=== PATIENT | male | born 1955 | race Caucasian/White ===

== ENCOUNTER → 2021-10-18 | Outpatient (CLI) | payer MEDICARE | LOC: LABNPT 12:57 | PROVIDERS: ATTEND Internal Medicine | DX: Z53.9 Procedure and treatment not carried out, unspecified reason (principal) ==

== ENCOUNTER → 2021-10-22 | Outpatient (CLI) | payer MEDICARE ==
[~2021-10-22] MED LIST: GADOTERATE 0.5 MMOL/ML (CLARISCAN) 20 ML VIAL IV ONE; GADOTERATE 0.5 MMOL/ML (CLARISCAN) 5 ML VIAL IV ONE
--- NOTE | 2021-10-22 11:38 | Diagnostic Imaging Report ---
PROCEDURE: US left lower extremity venous. TECHNIQUE: Multiple real-time grayscale images were obtained over the left lower extremity in various projections. Additional duplex Doppler and color Doppler images were also obtained. INDICATION: Edema of the left lower extremity. There is no evidence of left lower extremity DVT. Left lower extremity deep venous system shows normal compressibility with normal response to augmentation and Valsalva. No fluid collection or mass is detected. IMPRESSION: No evidence of left lower extremity DVT. Dictated by: Dictated on workstation # [id number]
--- NOTE | 2021-10-22 12:00 | Diagnostic Imaging Report ---
PROCEDURE: MR imaging of the brain with and without contrast. TECHNIQUE: Multiplanar, multisequence MR imaging of the brain was performed with and without contrast. INDICATION: Malignant neoplasm of brain COMPARISON: 08/21/2021 There are postoperative findings with interval resection of right parietal lobe mass. There is parietal bone craniotomy with peripheral enhancement about the operative cavity in the right parietal lobe. Blood products and other debris within the cavity demonstrate increased T1 and T2 signal. The cavity measures approximately 2.6 x 2.8 x 3.2 cm and there is associated mild adjacent meningeal enhancement. In addition to the main cavity, there is an approximately 2.1 x 1.5 cm region of increased T2 signal and decreased T1 signal which is slightly more conspicuous on the current study but was present anterior to the mass previously. Otherwise there is no evidence of additional mass lesion within the brain and no other abnormal contrast enhancement is identified. There is no mass effect or shift of midline structures. Small amount of fluid is seen within left mastoid air cells. IMPRESSION: Enhancement about the right parietal operative cavity. Blood and debris are present within the cavity without evidence of nodular enhancement or other finding to suggest residual tumor. Focal region of T2 signal anterior to the operative bed is nonspecific and may represent area of gliosis. There is no evidence of associated enhancement or mass effect but short-term MRI follow-up is recommended to document ongoing stability. Dictated by: Dictated on workstation # [id number]
== END ==
LOC: RAD 09:15
PROVIDERS: ATTEND Internal Medicine
DX: C71.9 Malignant neoplasm of brain, unspecified (principal); R60.0 Localized edema
CPT/HCPCS: 70553

== ENCOUNTER → 2021-10-28 | Outpatient (RCR) | payer MEDICARE | END | disposition home or self-care (01) | PROVIDERS: ATTEND Nurse Practitioner Family | DX: C71.9 Malignant neoplasm of brain, unspecified (principal); Z98.890 Other specified postprocedural states ==

== ENCOUNTER → 2021-10-28 | Outpatient (RCR) | payer MEDICARE ==
[2021-10-18 13:28] LABS: BASOPHILS % (AUTO) 1 % (0-10); EOSINOPHILS # (AUTO) 0.2 10^3/uL (0.0-0.3); EOSINOPHILS % (AUTO) 3 % (0-10); HEMATOCRIT 39 % (40-54); HEMOGLOBIN 12.4 g/dL (13.3-17.7); LYMPHOCYTES # (AUTO) 1.4 10^3/uL (1.0-4.0); LYMPHOCYTES % (AUTO) 20 % (12-44); MEAN CORPUSCULAR HEMOGLOBIN 31 pg (25-34); MEAN CORPUSCULAR HGB CONC 32 g/dL (32-36); MEAN CORPUSCULAR VOLUME 98 fL (80-99); MEAN PLATELET VOLUME 10.6 fL (9.0-12.2); MONOCYTES # (AUTO) 0.6 10^3/uL (0.0-1.0); MONOCYTES % (AUTO) 9 % (0-12); NEUTROPHILS # (AUTO) 4.7 10^3/uL (1.8-7.8); NEUTROPHILS % (AUTO) 67 % (42-75); PLATELET COUNT 255 10^3/uL (130-400); WHITE BLOOD COUNT 7.1 10^3/uL (4.3-11.0)
[2021-10-18 13:38] LABS: ALBUMIN 3.1 GM/DL (3.2-4.5); CREATININE SERUM 0.91 MG/DL (0.60-1.30); TOTAL PROTEIN 6.1 GM/DL (6.4-8.2)
[2021-10-21 14:49] LABS: BASOPHILS % (AUTO) 0 % (0-10); EOSINOPHILS % (AUTO) 0 % (0-10); HEMATOCRIT 41 % (40-54); HEMOGLOBIN 13.3 g/dL (13.3-17.7); LYMPHOCYTES % (AUTO) 12 % (12-44); MEAN CORPUSCULAR HEMOGLOBIN 32 pg (25-34); MEAN CORPUSCULAR HGB CONC 33 g/dL (32-36); MEAN CORPUSCULAR VOLUME 96 fL (80-99); MEAN PLATELET VOLUME 9.6 fL (9.0-12.2); MONOCYTES # (AUTO) 0.1 10^3/uL (0.0-1.0); MONOCYTES % (AUTO) 2 % (0-12); NEUTROPHILS # (AUTO) 7.2 10^3/uL (1.8-7.8); NEUTROPHILS % (AUTO) 84 % (42-75); PLATELET COUNT 377 10^3/uL (130-400); WHITE BLOOD COUNT 8.5 10^3/uL (4.3-11.0)
[2021-10-21 15:04] LABS: ALBUMIN 3.5 GM/DL (3.2-4.5); BILIRUBIN,TOTAL 0.5 MG/DL (0.1-1.0); CALCIUM 9.6 MG/DL (8.5-10.1); CREATININE SERUM 1.16 MG/DL (0.60-1.30); POTASSIUM 4.3 MMOL/L (3.6-5.0); TOTAL PROTEIN 6.7 GM/DL (6.4-8.2)
== END | disposition home or self-care (01) ==
LOC: ONC 10-04 12:21
PROVIDERS: ATTEND Internal Medicine
DX: C71.9 Malignant neoplasm of brain, unspecified (principal); I69.854 Hemiplegia and hemiparesis following other cerebrovascular disease affecting left non-dominant side; R60.0 Localized edema
CPT/HCPCS: 80053; 85025; G0463; 36415; 77300; 77301; 77334; 77338; 77386; 77470; 99204

== ENCOUNTER 2021-11-26 11:03 | Outpatient (RCR) | payer MEDICARE | END 2021-11-27 | disposition home or self-care (01) | PROVIDERS: ATTEND Nurse Practitioner Family | DX: C71.9 Malignant neoplasm of brain, unspecified (principal); I10 Essential (primary) hypertension; Z98.890 Other specified postprocedural states ==

== ENCOUNTER 2021-11-26 12:37 | Outpatient (RCR) | payer MEDICARE ==
[2021-10-29 12:56] LABS: BASOPHILS # (AUTO) 0.1 10^3/uL (0.0-0.1); BASOPHILS % (AUTO) 1 % (0-10); EOSINOPHILS % (AUTO) 0 % (0-10); HEMATOCRIT 43 % (40-54); LYMPHOCYTES # (AUTO) 2.1 10^3/uL (1.0-4.0); LYMPHOCYTES % (AUTO) 11 % (12-44); MEAN CORPUSCULAR HEMOGLOBIN 32 pg (25-34); MEAN CORPUSCULAR HGB CONC 33 g/dL (32-36); MEAN CORPUSCULAR VOLUME 97 fL (80-99); MEAN PLATELET VOLUME 9.9 fL (9.0-12.2); MONOCYTES # (AUTO) 0.7 10^3/uL (0.0-1.0); MONOCYTES % (AUTO) 4 % (0-12); NEUTROPHILS # (AUTO) 15.2 10^3/uL (1.8-7.8); NEUTROPHILS % (AUTO) 81 % (42-75); PLATELET COUNT 477 10^3/uL (130-400); WHITE BLOOD COUNT 18.9 10^3/uL (4.3-11.0)
[2021-10-29 13:17] LABS: ALBUMIN 3.6 GM/DL (3.2-4.5); BILIRUBIN,TOTAL 0.6 MG/DL (0.1-1.0); CALCIUM 9.1 MG/DL (8.5-10.1); CREATININE SERUM 1.13 MG/DL (0.60-1.30); POTASSIUM 4.2 MMOL/L (3.6-5.0); TOTAL PROTEIN 6.4 GM/DL (6.4-8.2)
[2021-11-02 13:36] LABS: BASOPHILS # (AUTO) 0.1 10^3/uL (0.0-0.1); BASOPHILS % (AUTO) 0 % (0-10); EOSINOPHILS % (AUTO) 0 % (0-10); HEMATOCRIT 43 % (40-54); HEMOGLOBIN 13.8 g/dL (13.3-17.7); LYMPHOCYTES # (AUTO) 1.7 10^3/uL (1.0-4.0); LYMPHOCYTES % (AUTO) 8 % (12-44); MEAN CORPUSCULAR HEMOGLOBIN 31 pg (25-34); MEAN CORPUSCULAR HGB CONC 32 g/dL (32-36); MEAN CORPUSCULAR VOLUME 96 fL (80-99); MEAN PLATELET VOLUME 10.3 fL (9.0-12.2); MONOCYTES # (AUTO) 0.6 10^3/uL (0.0-1.0); MONOCYTES % (AUTO) 3 % (0-12); NEUTROPHILS # (AUTO) 16.9 10^3/uL (1.8-7.8); NEUTROPHILS % (AUTO) 85 % (42-75); PLATELET COUNT 413 10^3/uL (130-400); WHITE BLOOD COUNT 19.9 10^3/uL (4.3-11.0)
[2021-11-02 14:12] LABS: ALBUMIN 3.6 GM/DL (3.2-4.5); BILIRUBIN,TOTAL 0.7 MG/DL (0.1-1.0); CALCIUM 8.9 MG/DL (8.5-10.1); CREATININE SERUM 1.22 MG/DL (0.60-1.30); POTASSIUM 3.9 MMOL/L (3.6-5.0); TOTAL PROTEIN 6.1 GM/DL (6.4-8.2)
[2021-11-08 13:00] LABS: BASOPHILS # (AUTO) 0.1 10^3/uL (0.0-0.1); BASOPHILS % (AUTO) 0 % (0-10); EOSINOPHILS # (AUTO) 0.1 10^3/uL (0.0-0.3); EOSINOPHILS % (AUTO) 1 % (0-10); HEMATOCRIT 43 % (40-54); HEMOGLOBIN 13.8 g/dL (13.3-17.7); LYMPHOCYTES # (AUTO) 2.5 10^3/uL (1.0-4.0); LYMPHOCYTES % (AUTO) 16 % (12-44); MEAN CORPUSCULAR HEMOGLOBIN 32 pg (25-34); MEAN CORPUSCULAR HGB CONC 32 g/dL (32-36); MEAN CORPUSCULAR VOLUME 98 fL (80-99); MEAN PLATELET VOLUME 10.1 fL (9.0-12.2); MONOCYTES # (AUTO) 1.3 10^3/uL (0.0-1.0); MONOCYTES % (AUTO) 8 % (0-12); NEUTROPHILS # (AUTO) 11.9 10^3/uL (1.8-7.8); NEUTROPHILS % (AUTO) 74 % (42-75); PLATELET COUNT 281 10^3/uL (130-400); WHITE BLOOD COUNT 16.1 10^3/uL (4.3-11.0)
[2021-11-08 13:19] LABS: ALBUMIN 3.5 GM/DL (3.2-4.5); BILIRUBIN,TOTAL 1.1 MG/DL (0.1-1.0); CALCIUM 8.7 MG/DL (8.5-10.1); CREATININE SERUM 1.02 MG/DL (0.60-1.30); POTASSIUM 3.9 MMOL/L (3.6-5.0); TOTAL PROTEIN 5.9 GM/DL (6.4-8.2)
[2021-11-16 13:04] LABS: BASOPHILS % (AUTO) 0 % (0-10); EOSINOPHILS % (AUTO) 0 % (0-10); HEMATOCRIT 43 % (40-54); LYMPHOCYTES # (AUTO) 0.7 10^3/uL (1.0-4.0); LYMPHOCYTES % (AUTO) 5 % (12-44); MEAN CORPUSCULAR HEMOGLOBIN 32 pg (25-34); MEAN CORPUSCULAR HGB CONC 33 g/dL (32-36); MEAN CORPUSCULAR VOLUME 96 fL (80-99); MEAN PLATELET VOLUME 9.5 fL (9.0-12.2); MONOCYTES # (AUTO) 0.3 10^3/uL (0.0-1.0); MONOCYTES % (AUTO) 2 % (0-12); NEUTROPHILS # (AUTO) 12.8 10^3/uL (1.8-7.8); NEUTROPHILS % (AUTO) 89 % (42-75); PLATELET COUNT 189 10^3/uL (130-400); WHITE BLOOD COUNT 14.4 10^3/uL (4.3-11.0)
[2021-11-16 13:28] LABS: ALBUMIN 3.3 GM/DL (3.2-4.5); BILIRUBIN,TOTAL 1.1 MG/DL (0.1-1.0); CALCIUM 8.7 MG/DL (8.5-10.1); CREATININE SERUM 1.09 MG/DL (0.60-1.30); POTASSIUM 4.1 MMOL/L (3.6-5.0); TOTAL PROTEIN 5.6 GM/DL (6.4-8.2)
[2021-11-22 10:16] LABS: BASOPHILS % (AUTO) 0 % (0-10); EOSINOPHILS % (AUTO) 0 % (0-10); HEMATOCRIT 43 % (40-54); LYMPHOCYTES % (AUTO) 5 % (12-44); MEAN CORPUSCULAR VOLUME 98 fL (80-99); NEUTROPHILS % (AUTO) 88 % (42-75)
[2021-11-22 10:17] LABS: HEMOGLOBIN 14.1 g/dL (13.3-17.7); LYMPHOCYTES # (AUTO) 0.8 10^3/uL (1.0-4.0); MEAN CORPUSCULAR HEMOGLOBIN 32 pg (25-34); MEAN CORPUSCULAR HGB CONC 33 g/dL (32-36); MEAN PLATELET VOLUME 9.7 fL (9.0-12.2); MONOCYTES # (AUTO) 0.9 10^3/uL (0.0-1.0); MONOCYTES % (AUTO) 6 % (0-12); PLATELET COUNT 73 10^3/uL (130-400); WHITE BLOOD COUNT 14.9 10^3/uL (4.3-11.0)
[2021-11-22 10:33] LABS: ALBUMIN 3.3 GM/DL (3.2-4.5); CALCIUM 8.7 MG/DL (8.5-10.1); CREATININE SERUM 1.58 MG/DL (0.60-1.30); POTASSIUM 4.2 MMOL/L (3.6-5.0); TOTAL PROTEIN 5.6 GM/DL (6.4-8.2)
[2021-11-22 11:53] LABS: FREE T4 (FREE THYROXINE) 0.86 NG/DL (0.70-1.48)
== END 2021-11-27 | disposition home or self-care (01) ==
LOC: ONC 12:37
PROVIDERS: ATTEND Internal Medicine
DX: Z51.0 Encounter for antineoplastic radiation therapy (principal); C71.9 Malignant neoplasm of brain, unspecified; I69.854 Hemiplegia and hemiparesis following other cerebrovascular disease affecting left non-dominant side; R60.0 Localized edema
CPT/HCPCS: 36415; 77336; 77385; 77386; 80053; 84439; 84443; 84480; 85025; 99213

== ENCOUNTER 2021-11-30 10:54 | Outpatient (RCR) | payer MEDICARE, OTHER ==
[2021-12-10] MEDS ORDERED: SULF-221 PO (01:27)
[2021-12-10] MEDS ORDERED: CLN.1T PO ×2 (01:27→09:51)
[2021-12-10] MEDS ORDERED: CYAN-41 PO (09:51)
[2021-12-10] MEDS ORDERED: OMEG100032 PO (09:51)
[2021-12-10] MEDS ORDERED: MULT-1030 PO (09:51)
[2021-12-10] MEDS ORDERED: FURO20TA4 PO (09:51)
[2021-12-10] MEDS ORDERED: SULF1TAB38 PO (09:51)
[2021-12-10] MEDS ORDERED: OLAN2.5T27 PO (09:51)
[2021-12-10] MEDS ORDERED: AMLO-251 PO (09:51)
[2021-12-10] MEDS ORDERED: CARV6.252 PO (09:51)
[2021-12-10] MEDS ORDERED: ONDA8TAB13 PO (09:51)
[2021-12-10] MEDS ORDERED: DEXA4TAB PO (09:51)
[2021-12-10] MEDS ORDERED: TMSL.4C PO (09:51)
[2021-12-10] MEDS ORDERED: LEVE10006 PO (09:51)
[2021-12-10] MEDS ORDERED: VALS80TA31 PO (09:51)
[2021-12-10] MEDS ORDERED: POTA10CA43 PO (09:51)
[2021-12-10] MEDS ORDERED: BENZ200C51 PO (09:51)
[2021-12-10] MEDS ORDERED: CITA40TA13 PO (09:57)
[2021-12-24] MEDS ORDERED: TMSL.4C PO (12:06)
[2021-12-24] MEDS ORDERED: IPRA3AMP31 INH (12:06)
[2021-12-24] MEDS ORDERED: ONDA8TAB13 PO (12:06)
[2021-12-24] MEDS ORDERED: ACET325T49 PO (12:06)
[2021-12-24] MEDS ORDERED: VALS80TA31 PO (12:06)
[2021-12-24] MEDS ORDERED: OXC5T PO (12:06)
[2021-12-24] MEDS ORDERED: FLUC100T10 PO (12:06)
[2021-12-24] MEDS ORDERED: CYAN-41 PO (12:06)
[2021-12-24] MEDS ORDERED: GUAI600T43 PO (12:06)
[2021-12-24] MEDS ORDERED: NYST1000 PO (12:06)
[2021-12-24] MEDS ORDERED: CARV6.252 PO (12:06)
[2021-12-24] MEDS ORDERED: LEVE10006 PO (12:06)
[2021-12-24] MEDS ORDERED: LORA2ORA PO (12:06)
[2021-12-24] MEDS ORDERED: POLY17PO54 PO (12:06)
[2021-12-24] MEDS ORDERED: BENZ200C51 PO (12:06)
[2021-12-24] MEDS ORDERED: LEVO750T39 PO (12:06)
[2021-12-24] MEDS ORDERED: CITA40TA13 PO (12:06)
[2021-12-24] MEDS ORDERED: OLAN2.5T27 PO (12:06)
[2021-12-24] MEDS ORDERED: MULT-1030 PO (12:06)
== END 2021-12-28 | disposition home or self-care (01) ==
PROVIDERS: ATTEND Nurse Practitioner Family
DX: C71.9 Malignant neoplasm of brain, unspecified (principal); I10 Essential (primary) hypertension; Z98.890 Other specified postprocedural states

== ENCOUNTER → 2021-12-02 | Outpatient (CLI) | payer MEDICARE ==
--- NOTE | 2021-12-02 13:29 | Diagnostic Imaging Report ---
INDICATION: DYSPNEA COMPARISON: 08/21/2021 FINDINGS: Frontal and lateral views of the chest demonstrate normal heart size and pulmonary vascularity. The lungs are clear. There are no signs of infiltrate, pleural effusions or pneumothoraces. The visualized osseous structures show no acute abnormalities. IMPRESSION: 1. No acute process. No signs of infiltrates, effusions or pneumothoraces. Dictated by: Dictated on workstation # [id number]
== END ==
LOC: RAD 13:07
PROVIDERS: ATTEND Internal Medicine
DX: R06.00 Dyspnea, unspecified (principal)
CPT/HCPCS: 71046

== ENCOUNTER 2021-12-09 09:43 | Outpatient (RCR) | payer MEDICARE, OTHER ==
[2021-11-29 12:10] LABS: HEMATOCRIT 41 % (40-54)
[2021-11-29 12:12] LABS: BASOPHILS % (AUTO) 0 % (0-10); EOSINOPHILS % (AUTO) 0 % (0-10); HEMOGLOBIN 13.6 g/dL (13.3-17.7); LYMPHOCYTES # (AUTO) 0.6 10^3/uL (1.0-4.0); LYMPHOCYTES % (AUTO) 6 % (12-44); MEAN CORPUSCULAR HEMOGLOBIN 32 pg (25-34); MEAN CORPUSCULAR HGB CONC 33 g/dL (32-36); MEAN CORPUSCULAR VOLUME 98 fL (80-99); MEAN PLATELET VOLUME 10.2 fL (9.0-12.2); MONOCYTES # (AUTO) 0.3 10^3/uL (0.0-1.0); MONOCYTES % (AUTO) 3 % (0-12); NEUTROPHILS # (AUTO) 9.1 10^3/uL (1.8-7.8); NEUTROPHILS % (AUTO) 90 % (42-75); WHITE BLOOD COUNT 10.1 10^3/uL (4.3-11.0)
[2021-11-29 12:17] LABS: PLATELET COUNT 28 10^3/uL (130-400)
[2021-11-29 12:26] LABS: ALBUMIN 3.3 GM/DL (3.2-4.5); CALCIUM 8.4 MG/DL (8.5-10.1); CREATININE SERUM 1.42 MG/DL (0.60-1.30); POTASSIUM 4.2 MMOL/L (3.6-5.0); TOTAL PROTEIN 5.6 GM/DL (6.4-8.2)
[2021-12-03 12:58] LABS: BASOPHILS % (AUTO) 0 % (0-10)
[2021-12-03 13:00] LABS: EOSINOPHILS % (AUTO) 0 % (0-10); HEMATOCRIT 40 % (40-54); HEMOGLOBIN 13.3 g/dL (13.3-17.7); LYMPHOCYTES # (AUTO) 0.4 10^3/uL (1.0-4.0); LYMPHOCYTES % (AUTO) 8 % (12-44); MEAN CORPUSCULAR HEMOGLOBIN 33 pg (25-34); MEAN CORPUSCULAR HGB CONC 34 g/dL (32-36); MEAN CORPUSCULAR VOLUME 98 fL (80-99); MEAN PLATELET VOLUME 11.3 fL (9.0-12.2); MONOCYTES # (AUTO) 0.2 10^3/uL (0.0-1.0); MONOCYTES % (AUTO) 4 % (0-12); NEUTROPHILS # (AUTO) 4.1 10^3/uL (1.8-7.8); NEUTROPHILS % (AUTO) 88 % (42-75); WHITE BLOOD COUNT 4.7 10^3/uL (4.3-11.0)
[2021-12-03 13:12] LABS: PLATELET COUNT 14 10^3/uL (130-400)
[2021-12-03 13:19] LABS: ALBUMIN 3.2 GM/DL (3.2-4.5); BILIRUBIN,TOTAL 0.9 MG/DL (0.1-1.0); CALCIUM 8.5 MG/DL (8.5-10.1); CREATININE SERUM 1.39 MG/DL (0.60-1.30); POTASSIUM 4.2 MMOL/L (3.6-5.0); TOTAL PROTEIN 5.6 GM/DL (6.4-8.2)
[2021-12-06 13:04] LABS: BASOPHILS % (AUTO) 0 % (0-10); EOSINOPHILS % (AUTO) 0 % (0-10); MONOCYTES # (AUTO) 0.1 10^3/uL (0.0-1.0); MONOCYTES % (AUTO) 4 % (0-12)
[2021-12-06 13:06] LABS: HEMATOCRIT 38 % (40-54); HEMOGLOBIN 12.9 g/dL (13.3-17.7); LYMPHOCYTES # (AUTO) 0.5 10^3/uL (1.0-4.0); LYMPHOCYTES % (AUTO) 16 % (12-44); MEAN CORPUSCULAR HEMOGLOBIN 33 pg (25-34); MEAN CORPUSCULAR HGB CONC 34 g/dL (32-36); MEAN CORPUSCULAR VOLUME 98 fL (80-99); NEUTROPHILS # (AUTO) 2.5 10^3/uL (1.8-7.8); NEUTROPHILS % (AUTO) 80 % (42-75); WHITE BLOOD COUNT 3.2 10^3/uL (4.3-11.0)
[2021-12-06 13:08] LABS: PLATELET COUNT 8 10^3/uL (130-400)
[~2021-12-09 09:43] MED LIST changes: -GADOTERATE 0.5 MMOL/ML (CLARISCAN) 20 ML VIAL IV ONE; -GADOTERATE 0.5 MMOL/ML (CLARISCAN) 5 ML VIAL IV ONE; +NS IV 500 ML 500 ML ONE
[2021-12-09 11:02] LABS: MEAN CORPUSCULAR VOLUME 96 fL (80-99)
[2021-12-09 11:04] LABS: BASOPHILS % (AUTO) 0 % (0-10); EOSINOPHILS % (AUTO) 2 % (0-10); HEMATOCRIT 36 % (40-54); HEMOGLOBIN 12.1 g/dL (13.3-17.7); LYMPHOCYTES # (AUTO) 0.4 10^3/uL (1.0-4.0); LYMPHOCYTES % (AUTO) 31 % (12-44); MEAN CORPUSCULAR HEMOGLOBIN 33 pg (25-34); MEAN CORPUSCULAR HGB CONC 34 g/dL (32-36); MONOCYTES # (AUTO) 0.1 10^3/uL (0.0-1.0); MONOCYTES % (AUTO) 4 % (0-12); NEUTROPHILS # (AUTO) 0.9 10^3/uL (1.8-7.8); NEUTROPHILS % (AUTO) 64 % (42-75)
[2021-12-09 11:11] LABS: WHITE BLOOD COUNT 1.4 10^3/uL (4.3-11.0)
[2021-12-09 11:12] LABS: PLATELET COUNT 6 10^3/uL (130-400)
[2021-12-09 11:20] LABS: BILIRUBIN,TOTAL 1.4 MG/DL (0.1-1.0); CALCIUM 8.4 MG/DL (8.5-10.1); CREATININE SERUM 1.6 MG/DL (0.60-1.30); POTASSIUM 3.5 MMOL/L (3.6-5.0); TOTAL PROTEIN 5.2 GM/DL (6.4-8.2)
[2021-12-10] MEDS ORDERED: SULF-221 PO (01:27)
[2021-12-10] MEDS ORDERED: CLN.1T PO ×2 (01:27→09:51)
[2021-12-10] MEDS ORDERED: LEVE10006 PO (09:51)
[2021-12-10] MEDS ORDERED: DEXA4TAB PO (09:51)
[2021-12-10] MEDS ORDERED: ONDA8TAB13 PO (09:51)
[2021-12-10] MEDS ORDERED: FURO20TA4 PO (09:51)
[2021-12-10] MEDS ORDERED: VALS80TA31 PO (09:51)
[2021-12-10] MEDS ORDERED: OMEG100032 PO (09:51)
[2021-12-10] MEDS ORDERED: TMSL.4C PO (09:51)
[2021-12-10] MEDS ORDERED: CYAN-41 PO (09:51)
[2021-12-10] MEDS ORDERED: OLAN2.5T27 PO (09:51)
[2021-12-10] MEDS ORDERED: POTA10CA43 PO (09:51)
[2021-12-10] MEDS ORDERED: BENZ200C51 PO (09:51)
[2021-12-10] MEDS ORDERED: MULT-1030 PO (09:51)
[2021-12-10] MEDS ORDERED: CARV6.252 PO (09:51)
[2021-12-10] MEDS ORDERED: AMLO-251 PO (09:51)
[2021-12-10] MEDS ORDERED: SULF1TAB38 PO (09:51)
[2021-12-10] MEDS ORDERED: CITA40TA13 PO (09:57)
[2021-12-24] MEDS ORDERED: FLUC100T10 PO (12:06)
[2021-12-24] MEDS ORDERED: CYAN-41 PO (12:06)
[2021-12-24] MEDS ORDERED: LEVE10006 PO (12:06)
[2021-12-24] MEDS ORDERED: LEVO750T39 PO (12:06)
[2021-12-24] MEDS ORDERED: GUAI600T43 PO (12:06)
[2021-12-24] MEDS ORDERED: TMSL.4C PO (12:06)
[2021-12-24] MEDS ORDERED: OXC5T PO (12:06)
[2021-12-24] MEDS ORDERED: CITA40TA13 PO (12:06)
[2021-12-24] MEDS ORDERED: IPRA3AMP31 INH (12:06)
[2021-12-24] MEDS ORDERED: CARV6.252 PO (12:06)
[2021-12-24] MEDS ORDERED: BENZ200C51 PO (12:06)
[2021-12-24] MEDS ORDERED: ONDA8TAB13 PO (12:06)
[2021-12-24] MEDS ORDERED: NYST1000 PO (12:06)
[2021-12-24] MEDS ORDERED: POLY17PO54 PO (12:06)
[2021-12-24] MEDS ORDERED: LORA2ORA PO (12:06)
[2021-12-24] MEDS ORDERED: OLAN2.5T27 PO (12:06)
[2021-12-24] MEDS ORDERED: MULT-1030 PO (12:06)
[2021-12-24] MEDS ORDERED: VALS80TA31 PO (12:06)
[2021-12-24] MEDS ORDERED: ACET325T49 PO (12:06)
== END 2021-12-28 | disposition home or self-care (01) ==
LOC: ONC 09:43
PROVIDERS: ATTEND Internal Medicine
DX: Z51.0 Encounter for antineoplastic radiation therapy (principal); C71.9 Malignant neoplasm of brain, unspecified; I69.854 Hemiplegia and hemiparesis following other cerebrovascular disease affecting left non-dominant side; D69.6 Thrombocytopenia, unspecified; R60.0 Localized edema
CPT/HCPCS: 36415; 36430; 77336; 77386; 80053; 85025; 86900; 86901; 99213

== ENCOUNTER 2021-12-09 11:31 | Inpatient (IN) | payer MEDICARE, OTHER ==
[~2021-12-09] VITALS: Ht 177.8 cm; Wt 127.0 kg
[2021-12-09] MEDS ORDERED: NS IV 500 ML 500 ML IV SCH (11:45)
[2021-12-09 11:57] LABS: ABSOLUTE RETIC # 36 10e9/uL (24-90); BASOPHILS % (AUTO) 1 % (0-10); EOSINOPHILS % (AUTO) 2 % (0-10); HEMATOCRIT 35 % (40-54); LYMPHOCYTES # (AUTO) 0.4 10^3/uL (1.0-4.0); LYMPHOCYTES % (AUTO) 31 % (12-44); MEAN CORPUSCULAR HEMOGLOBIN 33 pg (25-34); MEAN CORPUSCULAR HGB CONC 34 g/dL (32-36); MEAN CORPUSCULAR VOLUME 96 fL (80-99); MONOCYTES # (AUTO) 0.1 10^3/uL (0.0-1.0); MONOCYTES % (AUTO) 4 % (0-12); NEUTROPHILS # (AUTO) 0.8 10^3/uL (1.8-7.8); NEUTROPHILS % (AUTO) 63 % (42-75); RETICULOCYTE % 0.98 % (0.50-2.40)
--- NOTE | 2021-12-09 12:00 | ED General ---
General Stated Complaint: LOW PLATELET COUNT Source of Information: Patient, Caregiver, Other (hem/onc physician) Exam Limitations: No Limitations History of Present Illness Date Seen by Provider: December 09, 2021 Time Seen by Provider: 11:35 Initial Comments 66-year-old male with past medical history of glioblastoma and hypertension coming in due to pancytopenia. I discussed the case with Dr. Song, the patient's oncologist. He had surgery to remove as much of the tumor as possible. He has had left-sided weakness since then he was having extensive outpatient physical therapy and Occupational Therapy. He continues to go downhill and Dr. Song was concerned that he is having failure to thrive in the outpatient setting despite intensive resources. He has been getting radiation on his brain as well as chemotherapy. There is concern for chemotherapy toxicity as his platelet count continues to plummet. It was less than 10 on Monday and he received a transfusion of platelets. Repeat today was 6 so he was referred to the emergency department. He denies any episodes of bleeding anywhere. He does have some bruising, but denies any worsening headache, vision changes, blood in his urine or stool, or any vomit. He has not had any chemotherapy for roughly 2 weeks. Allergies and Home Medications Allergies Coded Allergies: No Known Drug Allergies (Unverified , 10/22/21) Patient Home Medication List Home Medication List Reviewed: Yes Review of Systems Review of Systems Constitutional: No chills, No fever EENTM: No blurred vision Respiratory: no symptoms reported Cardiovascular: no symptoms reported Gastrointestinal: no symptoms reported Genitourinary: no symptoms reported Musculoskeletal: no symptoms reported Skin: no symptoms reported Psychiatric/Neurological: Other (Left-sided weakness since the surgery) Hematologic/Lymphatic: Easy Bruising Immunological/Allergic: no symptoms reported All Other Systems Reviewed Negative Unless Noted: Yes Past Fevmyen-Ecncha-Jekcdu Hx Patient Social History Tobacco Use?: No Substance use?: No Alcohol Use?: No Past Medical History Surgeries: Yes (Knee replacements bilaterally and left shoulder replacement, brain surgery) Physical Exam Vital Signs Capillary Refill : Height, Weight, BMI Height: '" Weight: lbs. oz. kg; BMI Method: General Appearance: No Apparent Distress, WD/WN Eyes: Bilateral Eye Normal Inspection, Bilateral Eye PERRL, Bilateral Eye EOMI HEENT: PERRL/EOMI, Normal ENT Inspection, Pharynx Normal Neck: Full Range of Motion, Normal Inspection, Non Tender, Supple Respiratory: Chest Non Tender, Lungs Clear, Normal Breath Sounds, No Accessory Muscle Use, No Respiratory Distress Cardiovascular: Regular Rate, Rhythm, No Edema, Normal Peripheral Pulses Gastrointestinal: Normal Bowel Sounds, Non Tender, Soft Back: Normal Inspection, No CVA Tenderness, No Vertebral Tenderness Extremity: Normal Capillary Refill, Normal Inspection, Non Tender, No Calf Tenderness, No Pedal Edema, Other (Left arm and leg weakness) Neurologic/Psychiatric: Alert, Oriented x3, Normal Mood/Affect Skin: Normal Color, Warm/Dry Lymphatic: No Adenopathy Progress/Results/Core Measures Suspected Sepsis SIRS Temperature: Pulse: Respiratory Rate: Laboratory Tests 12/09/21 10:54: Blood Pressure / Mean: Laboratory Tests 12/09/21 10:54: Results/Orders Lab Results Laboratory Tests Test 12/09/21 10:54 Range/Units My Orders Orders - MT COONEY MD Protime With Inr (12/09/21 11:44) Partial Thromboplastin Time (12/09/21 11:44) Type And Screen (12/09/21 11:44) LDH (12/09/21 11:44) Fibrinogen (12/09/21 11:44) Smear For Path Review (12/09/21 11:44) Haptoglobin Screen (12/09/21 11:44) Vital Signs: Special (Order) (12/09/21 11:44) Consent-Obtain Consent For (12/09/21 11:44) Monitor S/S Transfusion Reacti (12/09/21 11:44) Ns Iv 500 Ml (Sodium Chloride 0.9%) (12/09/21 11:45) Platelet Pheresis Lr (12/09/21 11:44) Vital Signs/I&O Capillary Refill : Progress Note : Progress Note 66-year-old male with above history coming in due to low platelets and low white blood cell count concerning for pancytopenia and chemotherapy toxicity per his oncologist. ABCs were intact and vitals were stable on presentation. Physical exam with some mild bruising but no significant signs of bleeding. Basic labs reviewed from earlier today and I added on fibrinogen, coag studies, peripheral smear, haptoglobin, LDH per the oncologist recommendations. We will order the patient platelets. He recommends admission due to the refractory pancytopenia and failure to thrive as an outpatient with extensive resources used as an outpatient. I contacted Dr. Chaparro who will admit the patient under observation status for now. Goal platelets >10k unless evidence of bleeding then it would be higher. Departure Impression Primary Impression: Pancytopenia Additional Impressions: Glioblastoma Left-sided weakness Disposition: ADMITTED INPATIENT Condition: Stable Admissions Decision to Admit Reason: Admit from ER (General) Decision to Admit/Date: December 09, 2021 Time/Decision to Admit Time: 11:55 Departure-Patient Inst. Referrals: NO,LOCAL PHYSICIAN (PCP/Family) Primary Care Physician MT COONEY MD December 09, 2021 12:00
[2021-12-09 12:04] LABS: PLATELET COUNT 6 10^3/uL (130-400); WHITE BLOOD COUNT 1.3 10^3/uL (4.3-11.0)
[2021-12-09 12:24] LABS: INR 0.9 (0.8-1.4); PROTHROMBIN TIME PATIENT 12.8 SEC (12.2-14.7)
[2021-12-09 12:26] LABS: ANISOCYTOSIS SLIGHT; BAND NEUTROPHILS 3 %; EOSINOPHILS % (MANUAL) 2 %; LYMPHOCYTES % (MANUAL) 31 %; MONOCYTES % (MANUAL) 2 %; NEUTROPHILS % (MANUAL) 62 %
[2021-12-09 12:27] LABS: TOXIC GRANULATION/VACUOLAZATIO 1+
[2021-12-09] MEDS ORDERED: diphenhydrAMINE 25 MG TAB (BENADRYL) PO PRN (13:00)
[2021-12-09] MEDS ORDERED: polyethylene glycoL POWDER 17 GM (MIRALAX) PACK PO PRN (13:00)
[2021-12-09] MEDS ORDERED: ONDANSETRON 4 MG/2 ML (SDV) Z0FRAN IV PRN (13:00)
[2021-12-09] MEDS ORDERED: ONDANSETRON 4 MG (ZOFRAN) ORAL DISSOLVE TAB PO PRN (13:00)
[2021-12-09] MEDS ORDERED: ANTACID SUSP 30 ML UDC (MYLANTA) PO PRN (13:00)
[2021-12-09 13:57] VITALS: BP 103/69
--- NOTE | 2021-12-09 14:25 | Occ Therapy Progress Note ---
Therapy Progress Note OT orders received and chart reviewed. OT visited with pt, he requests to hold therapy until tomorrow due to fatigue and weakness at this time. OT will initiate evaluation/tx tomorrow. 1, visit 1420 JITENDRA COLINDRES OT December 09, 2021 14:25
--- NOTE | 2021-12-09 14:33 | Physical Therapy Progress Note ---
Therapy Progress Note Patient has requested to begin in a.MATT You PT December 09, 2021 14:33
[2021-12-09 14:50] VITALS: BP 103/69
[2021-12-09 15:10] VITALS: BP 117/67
[2021-12-09 15:40] VITALS: BP 117/67
[2021-12-09 17:10] VITALS: BP 128/70
--- NOTE | 2021-12-09 18:31 | History & Physical-Hospitalist ---
History of Present Illness HPI/Chief Complaint Valentin Talbert is a 66 year old male with PMH glioblastoma s/p surgery, radiation, and chemotherapy, who presented with pancytopenia. He has not been feeling well for the past week. He has been having weakness which has been more pronounced over that time. His chemotherapy was stopped a couple weeks ago due to his low platelet count. He denies any bleeding. He denies rash. He denies fevers and chills. He denies shortness of breath or cough. He denies chest pain. He denies abdominal pain. He denies diarrhea. He recently completed an antibiotic. Source: patient, family Exam Limitations: no limitations Date Seen 12/09/21 Time Seen by a Provider: 18:15 Attending Physician Gabriela Kramer MD PCP No,Local Physician Referring Physician Date of Admission December 09, 2021 at 12:02 Home Medications & Allergies Home Medications Reviewed patient Home Medication Reconciliation performed by pharmacy medication reconciliations endoscope technician and/or nursing. Patients Allergies have been reviewed. Allergies Allergies Coded Allergies No Known Drug Allergies (Unverified12/09/21) Past Qnqxerr-Ucoagz-Wctkog Hx Patient Social History Tobacco Use?: No Smoking Status: Never a Smoker Use of E-Cig and/or Vaping dev: No Substance use?: No Alcohol Use?: No Pt feels they are or have been: No Immunizations Up To Date Tetanus Booster (TDap): Unknown Current Status Advance Directives: No Communicates: Verbally Primary Language: Kyrgyz Preferred Spoken Language: Kyrgyz Is interpretation needed?: No Family Medical History No Pertinent Family Hx Review of Systems Constitutional: weakness EENTM: no symptoms reported Respiratory: no symptoms reported Cardiovascular: no symptoms reported Gastrointestinal: no symptoms reported Genitourinary: no symptoms reported Musculoskeletal: no symptoms reported Skin: no symptoms reported Psychiatric/Neurological: No Symptoms Reported Physical Exam Physical Exam Vital Signs Vital Signs - First Documented 12/09/21 11:36 Temp 35.8 Pulse 68 Resp 16 B/P (MAP) 92/61 (71) Pulse Ox 96 O2 Delivery Room Air Capillary Refill : Less Than 3 Seconds Height, Weight, BMI Height: '" Weight: lbs. oz. kg; 38.75 BMI Method: General Appearance: No Apparent Distress, Obese Respiratory: Lungs Clear, No Respiratory Distress Cardiovascular: Regular Rate, Rhythm, No Murmur Gastrointestinal: Normal Bowel Sounds, Non Tender, Soft Extremity: No Inflammation; Swelling (4+) Neurologic/Psychiatric: Alert, Normal Mood/Affect, Motor Weakness (left sided) Skin: Normal Color, Warm/Dry Results Results/Procedures Labs Laboratory Tests 12/09/21 10:54 Patient resulted labs reviewed. Imaging: Reviewed Imaging Report Assessment/Plan Admission Diagnosis Pancytopenia Admission Status: Inpatient Order (span 2 midnights) Reason for Inpatient Admission: Platelet transfusion, monitoring Assessment and Plan Pancytopenia Glioblastoma Likely due to chemotherapy Dr. Song, oncology, consulted Platelet count 6 s/p 1 unit platelets WBC 1.4, ANC ~0.8 Consider gCSF Possible bone marrow biopsy Continue dexamethasone HTN Insomnia Leg swelling Obesity Continue home meds Diagnosis/Problems Diagnosis/Problems (1) Pancytopenia Status: Acute (2) Glioblastoma Status: Acute GABRIELA KRAMER MD December 09, 2021 18:31
[2021-12-09 20:00] VITALS: BP 118/76
[2021-12-09] MEDS: OLANZapine 2.5 MG (ZyPREXA) TAB PO SCH (20:53)
[2021-12-09] MEDS: BENZONATATE 100 MG (TESSALON) CAPSULE PO PRN (21:49)
[2021-12-10 00:10] VITALS: BP 116/69
[2021-12-10] MEDS ORDERED: CLN.1T PO ×2 (01:27→09:51)
[2021-12-10] MEDS ORDERED: SULF-221 PO (01:27)
[2021-12-10 05:28] LABS: BASOPHILS % (AUTO) 0 % (0-10); EOSINOPHILS % (AUTO) 1 % (0-10); LYMPHOCYTES # (AUTO) 0.5 10^3/uL (1.0-4.0); MONOCYTES # (AUTO) 0.1 10^3/uL (0.0-1.0)
[2021-12-10 05:30] LABS: HEMATOCRIT 30 % (40-54); HEMOGLOBIN 10.4 g/dL (13.3-17.7); LYMPHOCYTES % (AUTO) 41 % (12-44); MEAN CORPUSCULAR HEMOGLOBIN 33 pg (25-34); MEAN CORPUSCULAR HGB CONC 34 g/dL (32-36); MEAN CORPUSCULAR VOLUME 97 fL (80-99); MONOCYTES % (AUTO) 5 % (0-12); NEUTROPHILS # (AUTO) 0.7 10^3/uL (1.8-7.8); NEUTROPHILS % (AUTO) 54 % (42-75)
[2021-12-10 05:33] LABS: PLATELET COUNT 19 10^3/uL (130-400); WHITE BLOOD COUNT 1.3 10^3/uL (4.3-11.0)
[2021-12-10 05:39] LABS: POTASSIUM 3.5 MMOL/L (3.6-5.0)
[2021-12-10 05:40] LABS: CALCIUM 8.2 MG/DL (8.5-10.1)
[2021-12-10 05:44] LABS: CREATININE SERUM 1.33 MG/DL (0.60-1.30)
[2021-12-10] MEDS: KCL 20 MEQ TAB (K-DUR) PO SCH (05:45)
[2021-12-10] MEDS: POTASSIUM CL 10MEQ/50ML IVPB 50 ML IV SCH (05:46)
[2021-12-10] MEDS: MAGNESIUM 1 GM/100 ML IVPB 100 ML IV SCH (05:46)
[2021-12-10 05:48] LABS: MAGNESIUM 1.8 MG/DL (1.6-2.4)
[2021-12-10 08:00] VITALS: BP 124/71
[2021-12-10] MEDS ORDERED: KCL 20 MEQ TAB (K-DUR) PO ONE (08:00)
[2021-12-10] MEDS: VALSARTAN 80 MG (DIOVAN) TAB PO SCH (09:01)
[2021-12-10] MEDS: TAMSULOSIN 0.4 MG (FLOMAX) CAP PO SCH (09:02)
[2021-12-10] MEDS: FUROSEMIDE 40 MG (LASIX) TAB PO SCH (09:02)
[2021-12-10] MEDS: amLODIPine 10 MG (NORVASC) TAB PO SCH (09:02)
[2021-12-10] MEDS ORDERED: DEXA4TAB PO (09:51)
[2021-12-10] MEDS ORDERED: SULF1TAB38 PO (09:51)
[2021-12-10] MEDS ORDERED: VALS80TA31 PO (09:51)
[2021-12-10] MEDS ORDERED: LEVE10006 PO (09:51)
[2021-12-10] MEDS ORDERED: OMEG100032 PO (09:51)
[2021-12-10] MEDS ORDERED: ONDA8TAB13 PO (09:51)
[2021-12-10] MEDS ORDERED: BENZ200C51 PO (09:51)
[2021-12-10] MEDS ORDERED: OLAN2.5T27 PO (09:51)
[2021-12-10] MEDS ORDERED: POTA10CA43 PO (09:51)
[2021-12-10] MEDS ORDERED: MULT-1030 PO (09:51)
[2021-12-10] MEDS ORDERED: TMSL.4C PO (09:51)
[2021-12-10] MEDS ORDERED: FURO20TA4 PO (09:51)
[2021-12-10] MEDS ORDERED: CARV6.252 PO (09:51)
[2021-12-10] MEDS ORDERED: CYAN-41 PO (09:51)
[2021-12-10] MEDS ORDERED: AMLO-251 PO (09:51)
--- NOTE | 2021-12-10 09:55 | Physical Therapy Evaluation ---
PT Evaluation-General Medical Diagnosis Admission Date December 09, 2021 at 12:02 Medical Diagnosis: panocytopenia Onset Date: December 09, 2021 Therapy Diagnosis Therapy Diagnosis: debility/weakness Precautions Precautions/Isolations: Fall Prevention, Standard Precautions Referral Physician: Shankar Reason for Referral: Evaluation/Treatment Medical History Additional Medical History gliopblastoma with resection Current History ER secondary to decline in status with increased weakness and inability to ambulate at home Reviewed History: Yes Social History Home: Single Level Current Living Status: Spouse Entry Into Home: Ramp Prior Prior Level of Function SCALE: Activities may be completed with or without assistive devices. 4-[place]-nlowxle completes the activity by him/herself with no assistance from a helper. 5-Set-up or Clean-up Assistance-helper sets up or cleans up; patient completes activity. [place] assists only prior to or following the activity. 4-Supervision or Touching Assistance-helper provides verbal cues and/or touching/steadying and/or contact guard assistance as patient completes activity. Assistance may be provided throughout the activity or intermittently. 3-Partial/Moderate Assistance-helper does LESS THAN HALF the effort. [place] lifts, holds or supports trunk or limbs, but provides less than half the effort. 2-Substantial/Maximal Assistance-helper does MORE THAN HALF the effort. [place] lifts or holds trunk or limbs and provides more than half the effort. 0-Wtkwvavta-nlzukm does ALL the effort. Patient does none of the effort to complete the activity. Or, the assistance of 2 or more helpers is required for the patient to complete the activity. If activity was not attempted, code reason: 7-Patient Refused. 9-Not Applicable-not attempted and the patient did not perform the activity before the current illness, exacerbation or injury. 10-Not Attempted due to Environmental Limitations-(lack of equipment, weather restraints, etc.). 88-Not Attempted due to Medical Conditions or Safety Concerns. Bed Mobility: 3 Transfers (B,C,W/C): 3 Gait: 3 Indoor Mobility (Ambulation): Needed Some Help Stairs: Not Applicalbe Prior Devices Use: Manual wheelchair, Walker PT Evaluation-Current Subjective Patient agrees to PT. Requests to have PT don left AFO, shoes and left UE sling. Objective Patient Orientation: Normal For Age ROM/Strength ROM Lower Extremities bilateral LE WFL Strength Lower Extremities right knee flexion/extension 3/5; hip flexion 3-/5 left knee flexion 2/5, extension 3-/5 Integumentary/Posture Posture trunk flexed posture in stand to vitor walker Neuromuscular (Tone, Coordination, Reflexes) diminished coordination due to weakness and brain tumor Sensory Vision: Wears Glasses Hearing: Functional Sensation Right Lower Extremit: Intact Sensation Left Lower Extremity: Intact Transfers Lying to Sitting/Side of Bed(Q: 3 Sit to Stand (QC): 1 ( mod assist of 2 for safety) Chair/Cco-tw-Ijudn Xfer(QC): 1 (mod assist of 2 for safety) Gait Walk 10 feet (QC): 1 (mod assist of 2 for safety) Distance: 15' Gait Assistive Device: Walker Vitor Comments/Gait Description flexed knee and trunk posture with sit to stand and gait. Balance Sitting Static: Normal Sitting Dynamic: Normal Standing Static: Fair (fair-) Standing Dynamic: Fair (fair-) Assessment/Needs 66 y.o. male, will benefit from skilled PT to address functional strength and mobility to improve current LOF. Patient highly motivated with current prog ress. Increase activity as tolerated by patient. Rehab Potential: Fair PT Nursing Home Goals Nursing Home Goals PT Health Informatics Instructor Goals Time Frame: December 18, 2021 Roll Left & Right (QC): 4 Sit to Lying (QC): 4 Lying-Sitting on Side/Bed(QC): 4 Sit to Stand (QC): 3 Chair/Cgl-li-Wjgze Xfer(QC): 3 Walk 10 feet (QC): 3 Walk 50ft with 2 Turns (QC): 3 PT Plan Problem List Problem List: Activity Tolerance, Functional Strength, Safety, Balance, Gait, Transfer, Bed Mobility Treatment/Plan Treatment Plan: Continue Plan of Care Treatment Plan: Bed Mobility, Education, Functional Activity Isidra, Functional Strength, Gait, Safety, Therapeutic Exercise, Transfers Treatment Duration: December 18, 2021 Frequency: 6 times per week Estimated Hrs Per Day: .5 hour per day Patient and/or Family Agrees t: Yes Time/GCodes Time In: 911 Time Out: 925 Total Billed Treatment Time: 14 Total Billed Treatment 1 visit EVMod 14 min MATT GUILLERMO PT December 10, 2021 09:55
[2021-12-10] MEDS ORDERED: CITA40TA13 PO (09:57)
--- NOTE | 2021-12-10 11:35 | Occupational Therapy Eval ---
OT Evaluation-General/PLF Medical Diagnosis Admission Date December 09, 2021 at 12:02 Medical Diagnosis: panocytopenia Onset Date: December 09, 2021 Therapy Diagnosis Therapy Diagnosis: decreased functional use LUE, decreased ADL status Precautions Precautions/Isolations: Fall Prevention, Standard Precautions Referral Physician: Shankar Referral Reason: Evaluation/Treatment Medical History Additional Medical History glioblastoma with brain surgery, HTN, b/l TKA, L shoulder replacement. Current History ED for further evaluation of low platelets, brought down by cancer center. Social History Home: Single Level Current Living Status: Spouse Entry Into Home: Ramp ADL-Prior Level of Function SCALE: Activities may be completed with or without assistive devices. 5-Vombzidyrm-jhhanra completes the activity by him/herself with no assistance from a helper. 5-Set-up or Clean-up Assistance-helper sets up or cleans up; patient completes activity. [place] assists only prior to or following the activity. 4-Supervision or Touching Assistance-helper provides verbal cues and/or touching/steadying and/or contact guard assistance as patient completes activity. Assistance may be provided throughout the activity or intermittently. 3-Partial/Moderate Assistance-helper does LESS THAN HALF the effort. [place] lifts, holds or supports trunk or limbs, but provides less than half the effort. 2-Substantial/Maximal Assistance-helper does MORE THAN HALF the effort. [place] lifts or holds trunk or limbs and provides more than half the effort. 6-Qjlhhpxpy-ebgqrw does ALL the effort. Patient does none of the effort to complete the activity. Or, the assistance of 2 or more helpers is required for the patient to complete the activity. If activity was not attempted, code reason: 7-Patient Refused. 9-Not Applicable-not attempted and the patient did not perform the activity before the current illness, exacerbation or injury. 10-Not Attempted due to Environmental Limitations-(lack of equipment, weather restraints, etc.). 88-Not Attempted due to Medical Conditions or Safety Concerns. ADL PLOF Comments Pt reports requiring assistance with mobility and ADLs at PLOF. He was having outpt PT and OT Self Care: Needed Some Help OT Current Status Subjective Pt up in recliner, 2 family member present. Pt and family agreeable to OT tx. Mental Status/Objective Patient Orientation: Person, Place, Situation Current Hand Dominance: Right Upper Extremity ROM RUE WFL. LUE: pt able to shrug shoulders, perform elbow flexion/extension in gravity eliminated plane and OT supporting LUE, some finger flexion/extension noted but unable to make full fist. Upper Extremity Strength LUE grossly 2/5 ADL-Treatment Eating (QC): 5 (Pt able to use RUE to complete task) Shower/Bathe Self (QC): 1 (Per clinical judgment, assist x2 needed for safety.) Lower Body Dressing (QC): 1 (Per clinical judgment, assist x2 needed for safety.) Toileting Hygiene (QC): 1 (Per clinical judgment, assist x2 needed for safety.) Other Treatments Pt up in recliner, family present. Pt and family provide information about PLOF, and pt participates in UE screen. Pt's family reports goals of increasing independence with ADLs at home in order for family to be able to leave during the day for a little while if needed. OT educated family of OT POC while in hospital, but encouraged them to relay this goal to outpatient therapists so they can continue to work on this after he leaves the hospital. OT encouraged pt to use LUE throughout the day as much as possible, and encouraged family to let pt attempt tasks at home before automatically assisting him. They verbalize understanding and agreement. OT educated family about slip on shoes or elastic laces to increase pt's independence with footwear. OT answered pt and family questions, they state no further questions/concerns at this time. Post tx, pt in recliner, call light in reach and all needs met. Education OT Patient Education: Correct positioning, Energy conservation, Modified ADL techniques, Progress toward Goal/Update tx plan, Purpose of tx/functional activities, Rehab process Teaching Recipient: Patient Teaching Methods: Discussion Response to Teaching: Verbalize Understanding OT Head Sawyer Goals Assisted Goals Time Frame: December 17, 2021 Eating (QC): 5 Oral Hygiene (QC): 5 Toileting Hygiene (QC): 3 Shower/Bathe Self (QC): 2 Upper Body Dressing (QC): 3 Lower Body Dressing (QC): 2 Additional Goals: 1-Demonstrate ADL Tasks, 2-Verbalize Understanding, 3- ImproveStrength/Isidra 1=Demonstrate adherence to instructed precautions during ADL tasks. 2=Patient will verbalize/demonstrate understanding of assistive device s/modifications for ADL. 3=Patient will improve strength/tolerance for activity to enable patient to perform ADL's. OT Education/Plan Problem List/Assessment Assessment: Decreased Activ Tolerance, Decreased UE Strength, Impaired Funct Balance, Impaired I ADL's, Impaired Self-Care Skills, Restricted Funct UE ROM Discharge Recommendations Plan/Recommendations: Continue POC Treatment Plan/Plan of Care Patient would benefit from OT for education, treatment and training to promote independence in ADL's, mobility, safety and/or upper extremity function for ADL's. Plan of Care: ADL Retraining, Functional Mobility, UE Funct Exercise/Act, UE Neuromus Re-Ed/Coord Treatment Duration: December 17, 2021 Frequency: 3 times per week (3-5 times per week) Estimated Hrs Per Day: .25 hour per day Rehab Potential: Fair Time/GCodes Start Time: 10:50 Stop Time: 11:08 Total Time Billed (hr/min): 18 Billed Treatment Time 1SOLE ADDISON OT December 10, 2021 11:35
[2021-12-10 12:31] VITALS: BP 129/61
--- NOTE | 2021-12-10 13:06 | Progress Note - Hospitalist ---
Subjective HPI/CC On Admission Date Seen by Provider: December 10, 2021 Time Seen by Provider: 10:40 Valentin Talbert is a 66 year old male with PMH glioblastoma s/p surgery, radiation, and chemotherapy, who presented with pancytopenia. He has not been feeling well for the past week. He has been having weakness which has been more pronounced over that time. His chemotherapy was stopped a couple weeks ago due to his low platelet count. He denies any bleeding. He denies rash. He denies fevers and chills. He denies shortness of breath or cough. He denies chest pain. He denies abdominal pain. He denies diarrhea. He recently completed an antibiotic. Subjective/Events-last exam He is feeling well this morning. He is not having any bleeding. He has no complaints or concerns. His noticed a brief episode of slurred speech early this morning which quickly resolved. Objective Exam Vital Signs Vital Signs Date Time Temp Pulse Resp B/P (MAP) Pulse Ox O2 Delivery O2 Flow Rate FiO2 12/10/21 16:17 35.6 78 18 141/63 (89) 92 Room Air Capillary Refill : Less Than 3 Seconds General Appearance: No Apparent Distress, Obese Respiratory: Lungs Clear, No Respiratory Distress Cardiovascular: Regular Rate, Rhythm, No Murmur Gastrointestinal: Normal Bowel Sounds, Soft Extremity: Normal Inspection, Swelling Neurologic/Psychiatric: Alert, Normal Mood/Affect Skin: Normal Color, Warm/Dry Results/Procedures Lab Laboratory Tests 12/10/21 04:45 12/10/21 15:43 Patient resulted labs reviewed. Imaging: Reviewed Imaging Report Assessment/Plan Assessment and Plan Assess & Plan/Chief Complaint Pancytopenia Glioblastoma Likely due to chemotherapy Dr. Sanchez consulted Platelet count improved post-transfusion s/p 1 unit platelets Transfuse for platelets <10 WBC 1.3, Plt [address] Head without evidence of bleeding HTN Insomnia Leg swelling Obesity Continue home meds Diagnosis/Problems Diagnosis/Problems (1) Pancytopenia Status: Acute (2) Glioblastoma Status: Acute ELVIA KRAMER MD December 10, 2021 13:06
--- NOTE | 2021-12-10 15:11 | Diagnostic Imaging Report ---
PROCEDURE: CT head without contrast. TECHNIQUE: Multiple contiguous axial images were obtained through the brain without the use of intravenous contrast. Auto Exposure Controls were utilized during the CT exam to meet ALARA standards for radiation dose reduction. INDICATION: Slurred speech, stroke, history of brain tumor COMPARISON: 10/22/2021, 08/21/2021, and 08/20/2021 FINDINGS: No intracranial hemorrhage. 2.5 cm hypodensity is identified within the high right parietal lobe, at previously noted region of hemorrhage and possible mass. Overall size appears similar to the prior examinations, though there is no evidence of current hemorrhage at this location. No definite new intracranial mass, mass effect, midline shift, herniation, hydrocephalus, or extra-axial fluid collection. No definite CT evidence of an acute ischemic infarction. The orbits are unremarkable. The paranasal sinuses are clear. The calvarium and extracalvarial soft tissues are unremarkable besides postsurgical changes involving the right calvarium. IMPRESSION: Hypodensity within the high right parietal lobe is again identified. This appears similar in size to prior examinations and may simply relate to encephalomalacia from underlying postsurgical changes. Residual neoplasm at this location is not excluded. If further evaluation of this region or of the remainder of the brain for underlying recent infarction is desired, further evaluation with MRI of the brain with and without contrast would be recommended for further evaluation. Dictated by: Dictated on workstation # [id number]
[2021-12-10] MEDS: BENZONATATE 100 MG (TESSALON) CAPSULE PO PRN (16:11)
[2021-12-10 16:17] VITALS: BP 141/63
--- NOTE | 2021-12-10 17:41 | CONSULTATION REPORT ---
DATE OF SERVICE: 12/10/2021 The patient is admitted to room 419, bed 1. PHYSICIAN REQUESTING CONSULTATION: Dr. Gabriela Chaparro. PRIMARY PHYSICIAN: Ibeth Bartlett APRN IMPRESSION: 1. A 66-year-old male with recent diagnosis of glioblastoma multiforme of right high parietal area, status post gross total resection on 09/22/2021 in [place]. 2. The patient completed adjuvant chemotherapy using oral temozolomide 180 mg daily from 10/21/2021 and stopped on 11/22/2021 because of worsening thrombocytopenia. He also had concurrent radiation therapy, which was completed on 12/03/2021. 3. Admitted to the hospital on 12/09/2021 with significant thrombocytopenia, worsening general condition. Medical oncology consultation was requested with me for concurrent care. 4. Also noted to have significant leukopenia and neutropenia of recent onset. 5. History of upper respiratory infection approximately 10 to 12 days ago, the patient completed a course of Levaquin two days ago. RECOMMENDATIONS: 1. Obtain a CT scan of the head without contrast to rule out intracranial bleeding, especially since the family feels he has had slight change in his mental status and he is having word finding difficulty. 2. Repeat CBC with peripheral smear, reticulocyte count, CMP, and LDH level tomorrow morning and I will review the peripheral smear. 3. Because of significant thrombocytopenia and risk of bleeding, transfuse platelets to maintain platelet count more than 10,000. If the patient has evidence of bleeding on the CT scan of head, he will need more platelet transfusion to maintain platelet count at a higher level. 4. Other etiologies for the borderline pancytopenia could be a viral infection as he is still having nonproductive cough and symptoms of upper respiratory infection. Clinically, doubt ITP as his platelet count had a nice bounce after transfusion. 5. Have pharmacy review all medications and avoid any medications that could interfere with bone marrow function. 6. Avoid heparin or heparin like products, antiplatelet agents or anticoagulants. 7. If his blood counts does not improve in the next 2 to 3 days, he will need a bone marrow aspiration and biopsy to rule out primary bone marrow failure status. 8. I will follow the patient with you. BRIEF HISTORY: The patient is a 66-year-old male, who was diagnosed with glioblastoma of the right high parietal area in mid August 2021. He has had left upper extremity weakness starting in mid July and was diagnosed with an intracranial bleed, which was monitored. The patient underwent a craniotomy on 09/22/2021 in [place] with gross total resection of tumor, which was reported as glioblastoma, WHO grade IV, IDH wild type. Since then, he was evaluated by Dr. Song and Dr. Ortiz at [facility] in [place] and started on combined chemoradiation using oral temozolomide. He received 180 mg daily from 10/21/2021 and was stopped on 11/22/2021 due to worsening thrombocytopenia. Radiation therapy continued until 12/03/2021. He complained of upper respiratory infection type symptoms approximately 10 to 12 days ago and was treated with a course of Levaquin, which completed two days ago. As he continued to worsen clinically, he was brought to the emergency room yesterday and noted to have thrombocytopenia with a platelet count of 6000. He had platelet count of 8000 earlier this week and was transfused with 1 unit of platelets. Because of significant thrombocytopenia and worsening general condition, the patient was admitted to the hospital. Medical oncology consultation was requested with me as Dr. Song or other covering physicians were not available. PAST MEDICAL HISTORY: Essentially unremarkable. PRIOR SURGERIES: Bilateral knee replacement, left shoulder replacement and recent craniotomy with resection of glioblastoma. Also has history of hypertension, obstructive sleep apnea, BPH, osteoarthritis and anxiety. PAST SURGICAL HISTORY: Other surgeries include full dental extraction, partial right index finger amputation, excision of a cyst from his neck. FAMILY HISTORY: His father had colon and thyroid cancer diagnosed in 2009, mother had gastric cancer diagnosed in 1989, brother with colon and pancreatic cancer diagnosed in 2007, maternal grandmother gastric cancer diagnosed in 1993, paternal grandmother and paternal aunt with thyroid cancer, daughter with thyroid cancer. SOCIAL HISTORY: The patient is and lives in [place], [place]. He has four children, three daughters and a son. One daughter lives in [place]. Other children live further away. 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 He retired 2 to 3 years ago. No history of tobacco use and he has used alcohol in the past, mostly socially. No recreational drug use. PHYSICAL EXAMINATION: GENERAL: Today showed an elderly male, moderately obese, awake and oriented, answering simple questions appropriately, although having difficulty finding words at times. HEENT: Normocephalic with healed craniotomy scar. Extraocular muscles intact, conjunctivae pink, oral mucosa moist without lesions. NECK: Supple, with no JVD. No cervical, supraclavicular or axillary lymphadenopathy palpable. CHEST: Symmetrical. LUNGS: Fairly clear to auscultation without wheezes or rales. CARDIOVASCULAR: Regular in rate and rhythm. No murmurs or gallops heard. ABDOMEN: Obese, soft, nontender with no hepatosplenomegaly or other masses palpable. EXTREMITIES: Showed few small ecchymosis. A 2+ edema of both lower extremities. NEUROLOGIC: Motor strength of 4/5 on the left side and 5/5 on the right side. LABORATORY DATA: CBC done today showed white count of 1.3, hemoglobin 10.4, MCV 97, platelet count 19,000 with neutrophil count 0.7 and lymphocyte count 0.5. CBC done last night at the emergency room had shown total white count of 1.3, hemoglobin 12.0, platelet count 6000 with neutrophil count 0.8. Chemistry panel done today showed potassium level of 3.5, BUN 39 and creatinine 1.33 with GFR 59 mL per minute. Nonfasting glucose was 121, magnesium was 1.8 and LDH was minimally elevated at 230. Previous CBCs done on 12/06/2021 showed WBC 3.2, hemoglobin 12.9 and platelet count of 8000 with neutrophil count 2.5. On 11/29/2021, WBC was 10.1, hemoglobin 13.6 and platelet count of 28,000 with neutrophil count 9.1. On 11/22/2021, white count was 14.9, hemoglobin 14.1 and platelet count of 73,000. Thank you for allowing me to participate in this patient's care. I will follow the patient with you and make appropriate recommendations. Job ID: [id number] DocumentID: [id number] Dictated Date: 12/10/2021 15:06:22 Roof Plumber Date: 12/10/2021 17:40:04 Dictated By: PHILLIP THOMPSON MD [facility]OSPITALTeresa
[2021-12-10] MEDS: guaiFENesin (MUCINEX) 600 MG TAB PO SCH (20:40)
[2021-12-10] MEDS: OLANZapine 2.5 MG (ZyPREXA) TAB PO SCH (20:40)
[2021-12-11] VITALS: BP 137/90
[2021-12-11 05:43] LABS: BASOPHILS % (AUTO) 0 % (0-10); EOSINOPHILS % (AUTO) 1 % (0-10); LYMPHOCYTES # (AUTO) 0.6 10^3/uL (1.0-4.0); MONOCYTES % (AUTO) 4 % (0-12)
[2021-12-11 05:46] LABS: ABSOLUTE RETIC # 33 10e9/uL (24-90); HEMATOCRIT 31 % (40-54); HEMOGLOBIN 10.7 g/dL (13.3-17.7); LYMPHOCYTES % (AUTO) 54 % (12-44); MEAN CORPUSCULAR HEMOGLOBIN 33 pg (25-34); MEAN CORPUSCULAR HGB CONC 35 g/dL (32-36); MEAN CORPUSCULAR VOLUME 97 fL (80-99); MEAN PLATELET VOLUME 9.5 fL (9.0-12.2); NEUTROPHILS # (AUTO) 0.4 10^3/uL (1.8-7.8); NEUTROPHILS % (AUTO) 40 % (42-75); RETICULOCYTE % 1.03 % (0.50-2.40)
[2021-12-11 05:48] LABS: PLATELET COUNT 15 10^3/uL (130-400)
[2021-12-11 06:11] LABS: POTASSIUM 3.8 MMOL/L (3.6-5.0)
[2021-12-11 06:12] LABS: CALCIUM 8.4 MG/DL (8.5-10.1)
[2021-12-11 06:14] LABS: TOTAL PROTEIN 5.1 GM/DL (6.4-8.2)
[2021-12-11] MEDS: POTASSIUM CL 10MEQ/50ML IVPB 50 ML IV SCH (06:14)
[2021-12-11] MEDS: KCL 20 MEQ TAB (K-DUR) PO SCH (06:14)
[2021-12-11 06:16] LABS: BILIRUBIN,TOTAL 1.3 MG/DL (0.1-1.0)
[2021-12-11 06:17] LABS: CREATININE SERUM 1.11 MG/DL (0.60-1.30)
[2021-12-11 06:20] LABS: MAGNESIUM 1.8 MG/DL (1.6-2.4)
[2021-12-11] MEDS: MAGNESIUM 1 GM/100 ML IVPB 100 ML IV SCH (06:21)
[2021-12-11 06:23] LABS: ANISOCYTOSIS SLIGHT; ATYPICAL LYMPHOCYTES 1 %; LYMPHOCYTES % (MANUAL) 53 %; METAMYELOCYTES % 1 %; MICROCYTOSIS SLIGHT; MONOCYTES % (MANUAL) 5 %; NEUTROPHILS % (MANUAL) 40 %; POLYCHROMASIA SLIGHT
[2021-12-11 06:24] LABS: ELLIPT/OVALOCYTES SLIGHT
[2021-12-11 08:00] VITALS: BP 145/85
[2021-12-11] MEDS: TAMSULOSIN 0.4 MG (FLOMAX) CAP PO SCH (09:10)
[2021-12-11] MEDS: VALSARTAN 80 MG (DIOVAN) TAB PO SCH (09:10)
[2021-12-11] MEDS: amLODIPine 10 MG (NORVASC) TAB PO SCH (09:10)
[2021-12-11] MEDS: guaiFENesin (MUCINEX) 600 MG TAB PO SCH ×2 (09:10→20:58)
[2021-12-11] MEDS: FUROSEMIDE 40 MG (LASIX) TAB PO SCH (09:10)
--- NOTE | 2021-12-11 10:42 | Physical Therapy Daily Note ---
PT Daily Note-Current Subjective Patient in recliner pre tx, agrees to PT, has no complaints of pain at rest. Appearance Patient in recliner post tx with nurse call, phone, tray, in room. Mental Status Patient Orientation: Person, Place, Situation Transfers SCALE: Activities may be completed with or without assistive devices. 1-Mtonxqdhhz-nlacwon completes the activity by him/herself with no assistance from a helper. 5-Set-up or Clean-up Assistance-helper sets up or cleans up; patient completes activity. [place] assists only prior to or following the activity. 4-Supervision or Touching Assistance-helper provides verbal cues and/or touching/steadying and/or contact guard assistance as patient completes activity. Assistance may be provided throughout the activity or intermittently. 3-Partial/Moderate Assistance-helper does LESS THAN HALF the effort. [place] lifts, holds or supports trunk or limbs, but provides less than half the effort. 2-Substantial/Maximal Assistance-helper does MORE THAN HALF the effort. [place] lifts or holds trunk or limbs and provides more than half the effort. 4-Wtzbynagu-szigqm does ALL the effort. Patient does none of the effort to complete the activity. Or, the assistance of 2 or more helpers is required for the patient to complete the activity. If activity was not attempted, code reason: 7-Patient Refused. 9-Not Applicable-not attempted and the patient did not perform the activity before the current illness, exacerbation or injury. 10-Not Attempted due to Environmental Limitations-(lack of equipment, weather restraints, etc.). 88-Not Attempted due to Medical Conditions or Safety Concerns. Sit to Stand (QC): 3 Gait Training Distance: 10'x2 Walk 10 feet (QC): 3 Gait Persons Needed: 1 Gait Assistive Device: Walker Vitor Patient uses a left AFO and arm sling. Min assist, follow with recliner so he can sit when he needs to. Treatments sit to stand, ambulation Assessment Current Status: Fair Progress patient fatigues quickly PT Construction Flagger Goals Construction Flagger Goals PT Construction Flagger Goals Time Frame: December 18, 2021 Roll Left & Right (QC): 4 Sit to Lying (QC): 4 Lying-Sitting on Side/Bed(QC): 4 Sit to Stand (QC): 3 Chair/Shb-bo-Bgetw Xfer(QC): 3 Walk 10 feet (QC): 3 Walk 50ft with 2 Turns (QC): 3 PT Plan Problem List Problem List: Activity Tolerance, Functional Strength, Safety, Balance, Gait, Transfer, Bed Mobility, ROM Treatment/Plan Treatment Plan: Continue Plan of Care Treatment Plan: Bed Mobility, Education, Functional Activity Isidra, Functional Strength, Gait, Safety, Therapeutic Exercise, Transfers Treatment Duration: December 18, 2021 Frequency: 6 times per week Estimated Hrs Per Day: .5 hour per day Patient and/or Family Agrees t: Yes Safety Risks/Education Patient Education: Gait Training, Transfer Techniques, Correct Positioning, Safety Issues Teaching Recipient: Patient Teaching Methods: Demonstration, Discussion Response to Teaching: Reinforcement Needed Time/GCodes Time In: 1009 Time Out: 1019 Total Billed Treatment Time: 10 Total Billed Treatment 1 visit GT 10' KODY MCINTYRE PT December 11, 2021 10:42
[2021-12-11] MEDS: BENZONATATE 100 MG (TESSALON) CAPSULE PO PRN (13:57)
--- NOTE | 2021-12-11 15:36 | Progress Note ---
Standard Progress Note Progress Notes/Assess & Plan Date Seen by a Provider: December 11, 2021 Time Seen by a Provider: 15:22 Progress/Assessment & Plan 66 yo male with GBM of right high parietal area, s/p gross total resection and adjuvant chemoradiation with temozolamide regimen. Temozolamide stopped on 11/20/2021 due to thrombocytopenia. Radiation completed 12/03/2021. Admitted with significant thrombocytopenia and received 1 unit platelet transfusion 12/09/21 night. No temperature spikes. complained of sore throat and choking episodes after drinking water. On weaning dose of dexamethasone at 4 mg daily. Oral exam with few whitish patches along left upper gum/soft palate clinically c/w candidiasis. Bilateral lower extremity swelling continues. No petechiae. Left hemipareisis stable. Rest of exam unchanged. Vital Sign - Last 12Hours Date Time Temp Pulse Resp B/P (MAP) Pulse Ox O2 Delivery O2 Flow Rate FiO2 12/11/21 08:00 95 Room Air 12/11/21 08:00 36.2 74 16 145/85 (105) Laboratory Tests 12/10/21 15:43: Platelet Count 18*L 12/11/21 05:30: Platelet Count 15*L, White Blood Count 1.0*L, Red Blood Count 3.20L, Hemoglobin 10.7L, Hematocrit 31L, Mean Corpuscular Volume 97, Mean Corpuscular Hemoglobin 33, Mean Corpuscular Hemoglobin Concent 35, Red Cell Distribution Width 16.0H, Mean Platelet Volume 9.5, Immature Granulocyte % (Auto) 1, Neutrophils (%) (Auto) 40L, Lymphocytes (%) (Auto) 54H, Monocytes (%) (Auto) 4, Eosinophils (%) (Auto) 1, Basophils (%) (Auto) 0, Neutrophils # (Auto) 0.4L, Lymphocytes # (Auto) 0.6L, Monocytes # (Auto) 0.0, Eosinophils # (Auto) 0.0, Basophils # (Auto) 0.0, Immature Granulocyte # (Auto) 0.0, Neutrophils % (Manual) 40, Lymphocytes % (Manual) 53, Monocytes % (Manual) 5, Metamyelocytes % 1, Atypical Lymphocytes 1, Percent Immature Platelet Fraction 1.9, Polychromasia SLIGHT, Anisocytosis SLIGHT, Microcytosis SLIGHT, Elliptocytes SLIGHT, Absolute Reticulocyte Count 33, Percent Reticulocyte Count 1.03, Sodium Level 142, Potassium Level 3.8, Chloride Level 107, Carbon Dioxide Level 24, Anion Gap 11, Blood Urea Nitrogen 36H, Creatinine 1.11, Estimat Glomerular Filtration Rate 73, BUN/Creatinine Ratio 32, Glucose Level 108H, Calcium Level 8.4L, Corrected Calcium 9.2, Magnesium Level 1.8, Total Bilirubin 1.3H, Aspartate Amino Transf (AST/SGOT) 16, Alanine Aminotransferase (ALT/SGPT) 34, Alkaline Phosphatase 65, Lactate Dehydrogenase 230H, Total Protein 5.1L, Albumin 3.0L Review of blood smear with no schistocytes. Neutrophils normal but low in numbers. Rare reactive lymphs. No immature cells. Platelets markedly low with no clumps. CT head with no evidence of bleeding. Post surgical changes. Repeat labwork tomorrow. Start on antifungal therapy. If blood counts not improving, may need bone marrow exam. PHILLIP THOMPSON December 11, 2021 15:36
[2021-12-11] MEDS: fluCOnazole (DIFLUCAN) 100 MG TAB PO SCH (17:55)
[2021-12-11] MEDS: NYSTATIN ORAL SUSP 5 ML UDC PO SCH ×2 (17:55→20:58)
[2021-12-11 17:58] VITALS: BP 121/74
--- NOTE | 2021-12-11 18:45 | Progress Note - Hospitalist ---
Subjective HPI/CC On Admission Date Seen by Provider: December 11, 2021 Time Seen by Provider: 10:55 Valentin Talbert is a 66 year old male with PMH glioblastoma s/p surgery, radiation, and chemotherapy, who presented with pancytopenia. He has not been feeling well for the past week. He has been having weakness which has been more pronounced over that time. His chemotherapy was stopped a couple weeks ago due to his low platelet count. He denies any bleeding. He denies rash. He denies fevers and chills. He denies shortness of breath or cough. He denies chest pain. He denies abdominal pain. He denies diarrhea. He recently completed an antibiotic. Subjective/Events-last exam He is feeling a bit weak today. He is not having any bleeding. He has a small sore at the corner of his mouth which is stable. He is not having fevers or chills. He wants to go for a walk outside Objective Exam Vital Signs Vital Signs Date Time Temp Pulse Resp B/P (MAP) Pulse Ox O2 Delivery O2 Flow Rate FiO2 12/11/21 17:58 37.2 83 20 121/74 (90) 95 Nasal Cannula Capillary Refill : Less Than 3 Seconds General Appearance: No Apparent Distress, Obese Respiratory: Lungs Clear, No Respiratory Distress Cardiovascular: Regular Rate, Rhythm, No Murmur Gastrointestinal: Normal Bowel Sounds, Soft Extremity: No Inflammation; Swelling Neurologic/Psychiatric: Alert, Normal Mood/Affect Skin: Normal Color, Warm/Dry Results/Procedures Lab Laboratory Tests 12/11/21 05:30 Patient resulted labs reviewed. Imaging: Reviewed Imaging Report Assessment/Plan Assessment and Plan Assess & Plan/Chief Complaint Pancytopenia Glioblastoma Likely due to chemotherapy Dr. Sanchez following Platelet count improved post-transfusion s/p 1 unit platelets Transfuse for platelets <10 WBC 1.3, Plt [address] Head without evidence of bleeding Many meds could contribute to pancytopenia including: TMZ (chemotherapy), Olanzapine, Coreg, Lasix, and Keppra Timing of cytopenias lines up with TMZ HTN Insomnia Leg swelling Obesity Continue home meds Increase Lasix Griffin hose ordered Diagnosis/Problems Diagnosis/Problems (1) Pancytopenia Status: Acute (2) Glioblastoma Status: Acute ELVIA KRAMER MD December 11, 2021 18:45
[2021-12-11] MEDS: MELATONIN 3 MG TABLET PO PRN (20:58)
[2021-12-11] MEDS: OLANZapine 2.5 MG (ZyPREXA) TAB PO SCH (20:58)
[2021-12-12 00:06] VITALS: BP 113/72
[2021-12-12 05:50] LABS: BASOPHILS % (AUTO) 1 % (0-10); EOSINOPHILS % (AUTO) 1 % (0-10); HEMATOCRIT 32 % (40-54); HEMOGLOBIN 10.5 g/dL (13.3-17.7); LYMPHOCYTES # (AUTO) 0.6 10^3/uL (1.0-4.0); LYMPHOCYTES % (AUTO) 57 % (12-44); MEAN CORPUSCULAR HEMOGLOBIN 33 pg (25-34); MEAN CORPUSCULAR HGB CONC 33 g/dL (32-36); MEAN CORPUSCULAR VOLUME 99 fL (80-99); MEAN PLATELET VOLUME 11.6 fL (9.0-12.2); MONOCYTES # (AUTO) 0.1 10^3/uL (0.0-1.0); MONOCYTES % (AUTO) 5 % (0-12); NEUTROPHILS # (AUTO) 0.3 10^3/uL (1.8-7.8); NEUTROPHILS % (AUTO) 36 % (42-75)
[2021-12-12 05:56] LABS: PLATELET COUNT 14 10^3/uL (130-400)
[2021-12-12] MEDS: MAGNESIUM 1 GM/100 ML IVPB 100 ML IV SCH ×3 (06:00→08:21)
[2021-12-12] MEDS: KCL 20 MEQ TAB (K-DUR) PO SCH (06:00)
[2021-12-12] MEDS: POTASSIUM CL 10MEQ/50ML IVPB 50 ML IV SCH (06:00)
[2021-12-12 06:03] LABS: ALBUMIN 2.8 GM/DL (3.2-4.5); POTASSIUM 4.1 MMOL/L (3.6-5.0)
[2021-12-12 06:04] LABS: CALCIUM 8.2 MG/DL (8.5-10.1)
[2021-12-12 06:05] LABS: TOTAL PROTEIN 5.1 GM/DL (6.4-8.2)
[2021-12-12 06:07] LABS: BILIRUBIN,TOTAL 0.7 MG/DL (0.1-1.0)
[2021-12-12 06:09] LABS: CREATININE SERUM 1.28 MG/DL (0.60-1.30)
[2021-12-12 06:12] LABS: MAGNESIUM 1.6 MG/DL (1.6-2.4)
[2021-12-12] MEDS: BENZONATATE 100 MG (TESSALON) CAPSULE PO PRN ×2 (06:32→20:52)
[2021-12-12 08:00] VITALS: BP 115/68
[2021-12-12] MEDS: VALSARTAN 80 MG (DIOVAN) TAB PO SCH (08:21)
[2021-12-12] MEDS: guaiFENesin (MUCINEX) 600 MG TAB PO SCH ×2 (08:21→20:52)
[2021-12-12] MEDS: NYSTATIN ORAL SUSP 5 ML UDC PO SCH ×4 (08:21→20:52)
[2021-12-12] MEDS: fluCOnazole (DIFLUCAN) 100 MG TAB PO SCH (08:22)
[2021-12-12] MEDS: amLODIPine 10 MG (NORVASC) TAB PO SCH (08:22)
[2021-12-12] MEDS: FUROSEMIDE 40 MG (LASIX) TAB PO SCH (08:22)
[2021-12-12] MEDS: TAMSULOSIN 0.4 MG (FLOMAX) CAP PO SCH (08:22)
[2021-12-12] MEDS ORDERED: fluCOnazole (DIFLUCAN) 100 MG TAB PO SCH (09:00)
--- NOTE | 2021-12-12 11:57 | Progress Note - Hospitalist ---
Subjective HPI/CC On Admission Date Seen by Provider: December 12, 2021 Time Seen by Provider: 10:40 Valentin Talbert is a 66 year old male with PMH glioblastoma s/p surgery, radiation, and chemotherapy, who presented with pancytopenia. He has not been feeling well for the past week. He has been having weakness which has been more pronounced over that time. His chemotherapy was stopped a couple weeks ago due to his low platelet count. He denies any bleeding. He denies rash. He denies fevers and chills. He denies shortness of breath or cough. He denies chest pain. He denies abdominal pain. He denies diarrhea. He recently completed an antibiotic. Subjective/Events-last exam He is doing well today. He was able to spend some time outside today. He is coughing with fluids. He is coughing up phlegm. He denies fevers. He denies bleeding. His legs are still swollen. Objective Exam Vital Signs Vital Signs Date Time Temp Pulse Resp B/P (MAP) Pulse Ox O2 Delivery O2 Flow Rate FiO2 12/12/21 08:00 96 Room Air 12/12/21 08:00 36.5 78 16 115/68 (84) Capillary Refill : Less Than 3 Seconds General Appearance: No Apparent Distress, Obese Respiratory: No Respiratory Distress, Crackles Cardiovascular: Regular Rate, Rhythm, No Murmur Gastrointestinal: Normal Bowel Sounds, Soft Extremity: No Inflammation; Swelling Neurologic/Psychiatric: Alert, Normal Mood/Affect, Motor Weakness Skin: Normal Color, Warm/Dry Results/Procedures Lab Laboratory Tests 12/12/21 05:40 Patient resulted labs reviewed. Imaging: Reviewed Imaging Report Assessment/Plan Assessment and Plan Assess & Plan/Chief Complaint Pancytopenia Glioblastoma Likely due to chemotherapy Dr. Sanchez following Platelet count improved post-transfusion s/p 1 unit platelets Transfuse for platelets <10 WBC 1, Plt 14, relatively stable Continue dexamethasone CT Head without evidence of bleeding Many meds could contribute to pancytopenia including: TMZ (chemotherapy), Zyprexa, Coreg, Lasix, and Keppra Timing of cytopenias lines up with TMZ Hold Zyprexa Dysphagia Cough Swallow evaluation Chest xray Sputum culture Modified diet, nectar thick liquids Debility PT/OT IRF evaluation HTN Insomnia Leg swelling Obesity Continue home meds Increase Lasix Griffin hose ordered Diagnosis/Problems Diagnosis/Problems (1) Pancytopenia Status: Acute (2) Glioblastoma Status: Acute (3) Leg swelling Status: Acute (4) Dysphagia Status: Acute (5) Cough Status: Acute (6) Debility Status: Acute ELVIA KRAMER MD December 12, 2021 11:57
--- NOTE | 2021-12-12 12:33 | Diagnostic Imaging Report ---
INDICATION: Cough. COMPARISON: 12/02/2021. FINDINGS: The lungs appear clear without focal infiltrate or consolidation. There are no findings of an effusion. There is no evidence of a pneumothorax. Heart size and mediastinal contours appear appropriate. Pulmonary vascularity appears within normal limits. There is no acute or suspicious osseous abnormality demonstrated. IMPRESSION: No radiographic evidence of an acute cardiopulmonary process. Dictated by: Dictated on workstation # [id number]
[2021-12-12 16:00] VITALS: BP 126/61
[2021-12-13 00:17] VITALS: BP 134/91
[2021-12-13 05:55] LABS: BASOPHILS % (AUTO) 0 % (0-10); EOSINOPHILS % (AUTO) 0 % (0-10); MEAN CORPUSCULAR VOLUME 97 fL (80-99)
[2021-12-13 05:56] LABS: HEMATOCRIT 32 % (40-54); HEMOGLOBIN 10.8 g/dL (13.3-17.7); LYMPHOCYTES # (AUTO) 0.6 10^3/uL (1.0-4.0); LYMPHOCYTES % (AUTO) 64 % (12-44); MEAN CORPUSCULAR HEMOGLOBIN 33 pg (25-34); MEAN CORPUSCULAR HGB CONC 34 g/dL (32-36); MEAN PLATELET VOLUME 11.7 fL (9.0-12.2); MONOCYTES # (AUTO) 0.1 10^3/uL (0.0-1.0); MONOCYTES % (AUTO) 5 % (0-12); NEUTROPHILS # (AUTO) 0.2 10^3/uL (1.8-7.8); NEUTROPHILS % (AUTO) 23 % (42-75)
[2021-12-13 06:12] LABS: ALBUMIN 3.2 GM/DL (3.2-4.5)
[2021-12-13 06:13] LABS: CALCIUM 8.7 MG/DL (8.5-10.1)
[2021-12-13 06:14] LABS: TOTAL PROTEIN 5.6 GM/DL (6.4-8.2)
[2021-12-13 06:16] LABS: BILIRUBIN,TOTAL 1.2 MG/DL (0.1-1.0)
[2021-12-13 06:21] LABS: MAGNESIUM 1.9 MG/DL (1.6-2.4)
[2021-12-13] MEDS: POTASSIUM CL 10MEQ/50ML IVPB 50 ML IV SCH (06:26)
[2021-12-13] MEDS: KCL 20 MEQ TAB (K-DUR) PO SCH (06:26)
[2021-12-13 06:28] LABS: PLATELET COUNT 16 10^3/uL (130-400)
[2021-12-13] MEDS: MAGNESIUM 1 GM/100 ML IVPB 100 ML IV SCH (06:28)
--- NOTE | 2021-12-13 06:58 | Progress Note - Hospitalist ---
Subjective HPI/CC On Admission Date Seen by Provider: December 13, 2021 Time Seen by Provider: 06:52 Valentin Talbert is a 66 year old male with PMH glioblastoma s/p surgery, radiation, and chemotherapy, who presented with pancytopenia. He has not been feeling well for the past week. He has been having weakness which has been more pronounced over that time. His chemotherapy was stopped a couple weeks ago due to his low platelet count. He denies any bleeding. He denies rash. He denies fevers and chills. He denies shortness of breath or cough. He denies chest pain. He denies abdominal pain. He denies diarrhea. He recently completed an antibiotic. Subjective/Events-last exam Pt reports doing well. Only complaint is about diet restriction. We discussed indication for this given concern for aspiration and additionally that complicated by pancytopenia. Objective Exam Vital Signs Vital Signs Date Time Temp Pulse Resp B/P (MAP) Pulse Ox O2 Delivery O2 Flow Rate FiO2 12/13/21 08:00 36.0 58 20 121/67 (85) 97 Room Air Capillary Refill : Less Than 3 Seconds General Appearance: No Apparent Distress, Chronically ill, Obese Respiratory: Lungs Clear, No Respiratory Distress Cardiovascular: Regular Rate, Rhythm, No Murmur Neurologic/Psychiatric: Alert, Oriented x3 Results/Procedures Lab Laboratory Tests 12/13/21 05:26 Patient resulted labs reviewed. Imaging: Reviewed Imaging Report Assessment/Plan Assessment and Plan Assess & Plan/Chief Complaint Pancytopenia Glioblastoma Likely due to chemotherapy though given prolonged nature at this point may need a bone marrow biopsy Dr. Sanchez following, appreciate recs Platelet count stable, up to 16 from 14 yesterday s/p 1 unit platelets Transfuse for platelets <[address] Head without evidence of bleeding Many meds could contribute to pancytopenia including: TMZ (chemotherapy), Zyprexa, Coreg, Lasix, and Keppra Timing of cytopenias lines up with TMZ though TMZ has been associated with aplastic anemia as well Hold Zyprexa Dysphagia Cough Swallow evaluation requested Chest xray no acute abnormalities Sputum culture pending Modified diet, nectar thick liquids Debility PT/OT IRF evaluation HTN Insomnia Leg swelling Obesity Continue home meds Continue Lasix Griffin baeza ordered ZYprexa held, but melatonin and ambien available Did no sleep last night (likely due to steroids) encouraged use of prns if needed LAURENT MTZ MD December 13, 2021 06:58
[2021-12-13 07:05] LABS: ATYPICAL LYMPHOCYTES 2 %; BAND NEUTROPHILS 4 %; EOSINOPHILS % (MANUAL) 2 %; LYMPHOCYTES % (MANUAL) 68 %; MONOCYTES % (MANUAL) 2 %; NEUTROPHILS % (MANUAL) 22 %
[2021-12-13 07:06] LABS: ANISOCYTOSIS SLIGHT
[2021-12-13 08:00] VITALS: BP 121/67
--- NOTE | 2021-12-13 08:55 | Physical Therapy Daily Note ---
PT Daily Note-Current Subjective Patient in WC in restroom pre tx, nurse aide needs assist helping him to get onto toilet. Patient voices no complaints of pain. Appearance Patient in WC at bedside post tx with nurse call, family in room. Mental Status Patient Orientation: Person, Place, Situation Transfers SCALE: Activities may be completed with or without assistive devices. 4-Ofkhkivxla-nzdwcne completes the activity by him/herself with no assistance from a helper. 5-Set-up or Clean-up Assistance-helper sets up or cleans up; patient completes activity. [place] assists only prior to or following the activity. 4-Supervision or Touching Assistance-helper provides verbal cues and/or touching/steadying and/or contact guard assistance as patient completes activi ty. Assistance may be provided throughout the activity or intermittently. 3-Partial/Moderate Assistance-helper does LESS THAN HALF the effort. [place] lifts, holds or supports trunk or limbs, but provides less than half the effort. 2-Substantial/Maximal Assistance-helper does MORE THAN HALF the effort. [place] lifts or holds trunk or limbs and provides more than half the effort. 0-Evdswpijr-ccnctx does ALL the effort. Patient does none of the effort to complete the activity. Or, the assistance of 2 or more helpers is required for the patient to complete the activity. If activity was not attempted, code reason: 7-Patient Refused. 9-Not Applicable-not attempted and the patient did not perform the activity before the current illness, exacerbation or injury. 10-Not Attempted due to Environmental Limitations-(lack of equipment, weather restraints, etc.). 88-Not Attempted due to Medical Conditions or Safety Concerns. Sit to Stand (QC): 3 Chair/Rok-sk-Ccvol Xfer(QC): 3 Patient performs a stand pivot transfer to toilet, nurse aide pulls pants down on the way. When done he stands with min assist, nurse aide wipes and gets pants back up. Gait Training Distance: 10' Walk 10 feet (QC): 3 Gait Persons Needed: 1 Gait Assistive Device: Walker Vitor Patient ambulates from the toilet into his room to the , needs some assist with stability, uses a left AFO and arm sling. Exercises Patient performs 3 sets of 10 of mini-squats in front of his WC. Treatments toileting, ambulation, transfers, LE strengthening Assessment Current Status: Poor Progress Patient has more difficulty with ambulation. Family in inquiring about rehab. PT Conservation Officer Goals Conservation Officer Goals PT Conservation Officer Goals Time Frame: December 18, 2021 Roll Left & Right (QC): 4 Sit to Lying (QC): 4 Lying-Sitting on Side/Bed(QC): 4 Sit to Stand (QC): 3 Chair/Gky-kj-Ijgoi Xfer(QC): 3 Walk 10 feet (QC): 3 Walk 50ft with 2 Turns (QC): 3 PT Plan Problem List Problem List: Activity Tolerance, Functional Strength, Safety, Balance, Gait, Transfer, Bed Mobility, ROM Treatment/Plan Treatment Plan: Continue Plan of Care Treatment Plan: Bed Mobility, Education, Functional Activity Isidra, Functional Strength, Gait, Safety, Therapeutic Exercise, Transfers Treatment Duration: December 18, 2021 Frequency: 6 times per week Estimated Hrs Per Day: .5 hour per day Patient and/or Family Agrees t: Yes Safety Risks/Education Patient Education: Gait Training, Transfer Techniques, Correct Positioning, Safety Issues Teaching Recipient: Patient Teaching Methods: Demonstration, Discussion Response to Teaching: Reinforcement Needed Time/GCodes Time In: 824 Time Out: 0844 Total Billed Treatment Time: 19 Total Billed Treatment 1 visit FA 19' KODY MCINTYRE PT December 13, 2021 08:55
[2021-12-13] MEDS: amLODIPine 10 MG (NORVASC) TAB PO SCH (09:56)
[2021-12-13] MEDS: fluCOnazole (DIFLUCAN) 100 MG TAB PO SCH (09:56)
[2021-12-13] MEDS: VALSARTAN 80 MG (DIOVAN) TAB PO SCH (09:56)
[2021-12-13] MEDS: NYSTATIN ORAL SUSP 5 ML UDC PO SCH ×4 (09:56→20:57)
[2021-12-13] MEDS: TAMSULOSIN 0.4 MG (FLOMAX) CAP PO SCH (09:56)
[2021-12-13] MEDS: guaiFENesin (MUCINEX) 600 MG TAB PO SCH ×2 (09:56→20:57)
[2021-12-13] MEDS: FUROSEMIDE 40 MG (LASIX) TAB PO SCH (09:56)
--- NOTE | 2021-12-13 12:38 | Occupational Ther Daily Note ---
OT Current Status-Daily Note Subjective Pt alert, sitting in w/c. Family present in room. Pt agrees to therapy. No c/o pain. ADL-Treatment Therapy Code Descriptions/Definitions Functional [place] Measure: 0=Not Assessed/NA 4=Minimal Assistance 1=Total Assistance 5=Supervision or Setup 2=Maximal Assistance 6=Modified [place] 3=Moderate Assistance 7=Complete IndependenceSCALE: Activities may be completed with or without assistive devices. 9-Dtztqfzwso-zpanvfd completes the activity by him/herself with no assistance from a helper. 5-Set-up or Clean-up Assistance-helper sets up or cleans up; patient completes activity. [place] assists only prior to or following the activity. 4-Supervision or Touching Assistance-helper provides verbal cues and/or touching/steadying and/or contact guard assistance as patient completes activity. Assistance may be provided throughout the activity or intermittently. 3-Partial/Moderate Assistance-helper does LESS THAN HALF the effort. [place] li fts, holds or supports trunk or limbs, but provides less than half the effort. 2-Substantial/Maximal Assistance-helper does MORE THAN HALF the effort. [place] lifts or holds trunk or limbs and provides more than half the effort. 3-Bjswiocln-gvpzjn does ALL the effort. Patient does none of the effort to complete the activity. Or, the assistance of 2 or more helpers is required for the patient to complete the activity. If activity was not attempted, code reason: 7-Patient Refused. 9-Not Applicable-not attempted and the patient did not perform the activity before the current illness, exacerbation or injury. 10-Not Attempted due to Environmental Limitations-(lack of equipment, weather restraints, etc.). 88-Not Attempted due to Medical Conditions or Safety Concerns. Other Treatment Pt has decreased AROM and increased weakness throughout L UE. With PROM, shldr flex ~100*. APROM with shldr abd/add, shldr prot/retr, shldr int/ext rotation shldr elevation, wrist flex/ext, finger flex/ext. Pt would tense muscles with exception of L tricep. Pt fatigues quickly with any active movement, 3 reps before fatigue with all exercises. Pt had slight edema in L hand and dissipated with exercise. After session, pt sitting in recliner with call light/phone in reach. All needs met in room. OT Embedded Software Architect Goals Halfway Goals Time Frame: December 17, 2021 Eating (QC): 5 Oral Hygiene (QC): 5 Toileting Hygiene (QC): 3 Shower/Bathe Self (QC): 2 Upper Body Dressing (QC): 3 Lower Body Dressing (QC): 2 Additional Goals: 1-Demonstrate ADL Tasks, 2-Verbalize Understanding, 3- ImproveStrength/Isidra 1=Demonstrate adherence to instructed precautions during ADL tasks. 2=Patient will verbalize/demonstrate understanding of assistive devices/modifications for ADL. 3=Patient will improve strength/tolerance for activity to enable patient to perform ADL's. OT Education/Plan Problem List/Assessment Assessment: Decreased Activ Tolerance, Decreased UE Strength, Impaired Self- Care Skills, Restricted Funct UE ROM Discharge Recommendations Plan/Recommendations: Continue POC Treatment Plan/Plan of Care Patient would benefit from OT for education, treatment and training to promote independence in ADL's, mobility, safety and/or upper extremity function for ADL's. Plan of Care: ADL Retraining, Functional Mobility, UE Funct Exercise/Act, UE Neuromus Re-Ed/Coord Treatment Duration: December 17, 2021 Frequency: 3 times per week (3-5 times per week) Estimated Hrs Per Day: .25 hour per day Rehab Potential: Fair Time/GCodes Start Time: 10:00 Stop Time: 10:20 Total Time Billed (hr/min): 20 Billed Treatment Time 1 visit-EX 1 (20 min) JANES MILLER December 13, 2021 12:38
--- NOTE | 2021-12-13 13:24 | ST Dysphagia Evaluation ---
Speech Evaluation-General Medical Diagnosis Panocytopenia Onset Date: December 09, 2021 Therapy Diagnosis Therapy Diagnosis: Oropharyngeal Dysphagia Precautions Precautions: Fall, Aspiration Precautions/Isolations: Aspiration, Fall Prevention, Standard Precautions Referral Referring Physician: Dr. Chaparro Reason for Referral: Evaluation/Treatment Medical History Current History The patient is a 66 year-old male with a past medical history of glioblastoma and hypertension, who was admitted to [facility] due to pancytopenia. 12/12/21: CXR: No radiographic evidence of an acute cardiopulmonary process. Reviewed History: Yes Social History Current Living Status: Spouse Speech PLF/Current-Dysphagia Prior Level of Function The patient (and present family members at bedside) denied oropharyngeal swallowing difficulties prior to two to three weeks ago. Approximately two to three weeks ago, the patient would demonstrated "coughing fits" following periods of P.O. intake. The patient and family were unable to identify specific food items which provoked the "coughing fits" but did state thin liquids were mostly responsible. Additionally, the patient stated he experiences "coughing fits" at night, prior to sleeping. The patient was consuming a regular consistency diet with thin liquids. Subjective The patient was seated upright in his wheelchair, awake and alert upon entrance to his room by the clinician. The patient's and daughter were present at bedside, which did aid in prior function information. The patient greeted the clinician appropriately and was agreeable to participation in the clinical bedside swallowing evaluation. At this time, the patient's SpO2% is 96% on room air. The patient denied shortness of breath. The patient does report a decrease in overall vocal quality, stating he feels like he "runs out of air." The clinician suspects the voicing difficulty is secondary to the patient's overall weakness and decreased breath support. Upon admission, the patient was placed on a mechanical soft diet consistency with nectar-thick liquids due to swallowing difficulties. Per RN, the patient does swallow appropriately, however, displays a cough approximately two seconds following the swallow with thin liquids. Cognitive Status Patient Orientation: Person, Place, Time, Situation Oral Motor Skills Dentition: Natural Current Food Consistancy: Mechanical Soft, [place] Liquids Ability to Follow Directions: Excellent Oral Expression Ability: No Impairment Voice Voice Phonatory-Based Quality: Harsh Voice Pitch: Normal Voice Loudness: Normal Face Facial Symmetry: Symmetrical Oral-Facial Assessment Oral-Facial Dentition: Normal Labial Seal Description: Normal Smile: Normal Puff Cheeks: Normal Lingual Protrusion: Normal Lingual ROM: Normal Lingual Strength: Normal Volitional Dry Swallow: Yes Voluntary Cough: Yes Can Clear Throat Volitionally: Yes Productive Cough: Yes Productive Throat Clear: Yes Dysphagia Evaluation Consistencies Presented: Regular, Thin Liquid, [place] Thick Liquid, Pureed The patient does not display any oral characteristics of dysphagia. Appropriate and timely bolus mastication and formation were present. Additionally, timely posterior transfer occurred to trigger a timely pharyngeal swallow response. The patient displays appropriate and timely laryngeal elevation judged by palpation. The patient does not report odynophagia. As noted in the following section, s/s of suspected aspiration were demonstrated with thin liquids following the swallow which leads the clinician to suspect poor airway protection secondary to possibly decreased pharyngeal contractions or base of tongue retraction. Funct. Velo/Pharyngeal Symptom: Cough After Swallow The patient demonstrated a delayed cough (sometimes immediately, other times following significant time delay of approximately two minutes) following the swallow with thin liquids. The s/s of suspected aspiration with thin liquids was consistent. The patient displayed one delayed cough following a swallow of nectar-thick liquid via straw. However, additional s/s of suspected aspiration were not demonstrated with additional nectar-thick straw drinks, puree, or solid consistencies. Dietary Recommendations: Regular Liquid Recommendations: [place] Consistancy Recommendations: - Regular consistency diet with mildly thick (NECTAR-THICK) liquids, as tolera joe. - Fully upright and alert for P.O. intake. - Small, single bites and sips, only. - Remain upright for 30 minutes following P.O. intake. - Monitor for s/s of suspected aspiration with P.O. intake. If demonstrated, contact speech pathology. - As the patient displays inconsistent, delayed s/s of suspected aspiration with thin liquids and the patient reports a steady decline in oropharyngeal swallowing function for the prior three weeks, speech pathology recommended a modified barium swallow evaluation to further investigate etiology and plan treatment. A modified bariums swallow has been scheduled for December 15 at 0945 (first available). The results and recommendations were discussed extensively with the patient, the patient's family, and the RN. All verbalized comprehension of the material and denied additional questions. The patient stated his tolerance for the nectar-thick liquids remained low and states he believes the consistency is arriving to his room "too thick." The clinician encouraged the patient to contact staff if he feels the consistency is "too thick" so the consistency can be monitored more closely. Dysphagia Evaluation Summary The patient demonstrated pharyngeal dysphagia characterized by poor airway protection during and following the swallow function. S/s of suspected aspiration were consistently demonstrated with thin liquid consistencies. Due to the timing of the s/s of suspected aspiration (intermittently significantly delayed) and the patient's reports or progressive worsening, the speech pathologist has recommended a modified barium swallow study. Speech Short Term Goals Short Term Goals Short Term Goals 1. The patient and staff will follow safe swallowing protocols with 90% accuracy, independently. Time Frame-STG: Three Days. Speech News Producer Goals Group Home Goals 1. The patient will demonstrate tolerance of the least restricted diet consistency without s/s of suspected aspiration. Time Frame: One Week. Speech-Plan Treatment Plan Speech Therapy Treatment Plan: Continue Plan of Care Frequency: 2 times per week Estimated Hrs Per Day: .25 hour per day Rehab Potential: Fair Pt/Family Agrees to Plan: Yes Safety Risks/Education Teaching Recipient: Patient, Family Teaching Methods: Discussion Response to Teaching: Verbalize Understanding Education Topics Provided: Results of Clinical Bedside Swallowing Evaluation, Speech Pathology Plan of Care Time Speech Therapy Time In: 11:00 Speech Therapy Time Out: 11:37 Total Billed Time: 37 Billed Treatment Time 1, DIMITRI UGARTE [facility] December 13, 2021 13:24
[2021-12-13 16:00] VITALS: BP 111/71
[2021-12-13 20:56] VITALS: BP 99/60
[2021-12-13] MEDS: ZOLPIDEM 5 MG (AMBIEN) TAB PO PRN (20:57)
[2021-12-13] MEDS: BENZONATATE 100 MG (TESSALON) CAPSULE PO PRN (20:57)
[2021-12-14 00:01] VITALS: BP 105/69
[2021-12-14 06:05] LABS: BASOPHILS % (AUTO) 0 % (0-10); MEAN CORPUSCULAR VOLUME 98 fL (80-99)
[2021-12-14 06:07] LABS: EOSINOPHILS % (AUTO) 0 % (0-10); HEMATOCRIT 35 % (40-54); HEMOGLOBIN 11.7 g/dL (13.3-17.7); LYMPHOCYTES # (AUTO) 0.9 10^3/uL (1.0-4.0); LYMPHOCYTES % (AUTO) 78 % (12-44); MEAN CORPUSCULAR HEMOGLOBIN 33 pg (25-34); MEAN CORPUSCULAR HGB CONC 33 g/dL (32-36); MEAN PLATELET VOLUME 9.6 fL (9.0-12.2); MONOCYTES # (AUTO) 0.1 10^3/uL (0.0-1.0); MONOCYTES % (AUTO) 4 % (0-12); NEUTROPHILS # (AUTO) 0.2 10^3/uL (1.8-7.8); NEUTROPHILS % (AUTO) 17 % (42-75)
[2021-12-14 06:12] LABS: PLATELET COUNT 13 10^3/uL (130-400); WHITE BLOOD COUNT 1.1 10^3/uL (4.3-11.0)
[2021-12-14 06:24] LABS: CREATININE SERUM 1.23 MG/DL (0.60-1.30); MAGNESIUM 1.7 MG/DL (1.6-2.4); POTASSIUM 3.5 MMOL/L (3.6-5.0)
[2021-12-14] MEDS: KCL 20 MEQ TAB (K-DUR) PO SCH (06:32)
[2021-12-14] MEDS: MAGNESIUM 1 GM/100 ML IVPB 100 ML IV SCH ×3 (06:32→10:28)
[2021-12-14] MEDS: POTASSIUM CL 10MEQ/50ML IVPB 50 ML IV SCH (06:32)
[2021-12-14] MEDS ORDERED: NS (IVPB) 250 ML ONE (06:40)
[2021-12-14] MEDS ORDERED: NS IV 500 ML 500 ML IV SCH (06:45)
[2021-12-14] MEDS ORDERED: KCL 20 MEQ TAB (K-DUR) PO ONE (06:45)
[2021-12-14] MEDS: BENZONATATE 100 MG (TESSALON) CAPSULE PO PRN ×2 (06:58→20:53)
[2021-12-14 07:46] VITALS: BP 152/77
[2021-12-14] MEDS: VALSARTAN 80 MG (DIOVAN) TAB PO SCH (10:26)
[2021-12-14] MEDS: TAMSULOSIN 0.4 MG (FLOMAX) CAP PO SCH (10:27)
[2021-12-14] MEDS: guaiFENesin (MUCINEX) 600 MG TAB PO SCH ×2 (10:27→19:52)
[2021-12-14] MEDS: NYSTATIN ORAL SUSP 5 ML UDC PO SCH ×4 (10:27→19:52)
[2021-12-14] MEDS: fluCOnazole (DIFLUCAN) 100 MG TAB PO SCH (10:27)
[2021-12-14] MEDS: amLODIPine 10 MG (NORVASC) TAB PO SCH (10:27)
[2021-12-14] MEDS: FUROSEMIDE 40 MG (LASIX) TAB PO SCH (10:27)
--- NOTE | 2021-12-14 10:29 | Occupational Ther Daily Note ---
OT Current Status-Daily Note Subjective Pt alert, nrsg and PT assisting pt to shower bench. Pt agrees to therapy. No c/o pain. Mental Status/Objective Patient Orientation: Person, Place, Time, Situation Attachments: IV ADL-Treatment Nrsg getting pt in shower, WELLS assists with shower. PT assisting with shower transfers, max A x2. Pt washed R side of body down to foot, face, abdomen and farzana area then assist for rest of body. Assist x2 to stand to cleanse buttocks. Max A for donning/doffing shirt. Max A x2 to complete lower body dressing. Max A with footwear. After session, pt left in care of PT. All needs met. Therapy Code Descriptions/Definitions Functional [place] Measure: 0=Not Assessed/NA 4=Minimal Assistance 1=Total Assistance 5=Supervision or Setup 2=Maximal Assistance 6=Modified [place] 3=Moderate Assistance 7=Complete IndependenceSCALE: Activities may be completed with or without assistive devices. 3-Nwcfploekl-mpbzpoi completes the activity by him/herself with no assistance from a helper. 5-Set-up or Clean-up Assistance-helper sets up or cleans up; patient completes activity. [place] assists only prior to or following the activity. 4-Supervision or Touching Assistance-helper provides verbal cues and/or touching/steadying and/or contact guard assistance as patient completes activity. Assistance may be provided throughout the activity or intermittently. 3-Partial/Moderate Assistance-helper does LESS THAN HALF the effort. [place] lifts, holds or supports trunk or limbs, but provides less than half the effort. 2-Substantial/Maximal Assistance-helper does MORE THAN HALF the effort. [place] lifts or holds trunk or limbs and provides more than half the effort. 3-Hezcmzqkj-dngxsu does ALL the effort. Patient does none of the effort to complete the activity. Or, the assistance of 2 or more helpers is required for the patient to complete the activity. If activity was not attempted, code reason: 7-Patient Refused. 9-Not Applicable-not attempted and the patient did not perform the activity before the current illness, exacerbation or injury. 10-Not Attempted due to Environmental Limitations-(lack of equipment, weather restraints, etc.). 88-Not Attempted due to Medical Conditions or Safety Concerns. Shower/Bathe Self (QC): 1 Upper Body Dressing (QC): 2 Lower Body Dressing (QC): 1 On/Off Footwear: 2 OT Penitentiary Goals Penitentiary Goals Time Frame: December 17, 2021 Eating (QC): 5 Oral Hygiene (QC): 5 Toileting Hygiene (QC): 3 Shower/Bathe Self (QC): 2 Upper Body Dressing (QC): 3 Lower Body Dressing (QC): 2 Additional Goals: 1-Demonstrate ADL Tasks, 2-Verbalize Understanding, 3- ImproveStrength/Isidra 1=Demonstrate adherence to instructed precautions during ADL tasks. 2=Patient will verbalize/demonstrate understanding of assistive devices/modifications for ADL. 3=Patient will improve strength/tolerance for activity to enable patient to perform ADL's. OT Education/Plan Problem List/Assessment Assessment: Decreased Activ Tolerance, Decreased UE Strength, Impaired Self- Care Skills, Restricted Funct UE ROM Discharge Recommendations Plan/Recommendations: Continue POC Treatment Plan/Plan of Care Patient would benefit from OT for education, treatment and training to promote independence in ADL's, mobility, safety and/or upper extremity function for ADL's. Plan of Care: ADL Retraining, Functional Mobility, UE Funct Exercise/Act, UE Neuromus Re-Ed/Coord Treatment Duration: December 17, 2021 Frequency: 3 times per week (3-5 times per week) Estimated Hrs Per Day: .25 hour per day Rehab Potential: Fair Time/GCodes Start Time: 09:25 Stop Time: 09:52 Total Time Billed (hr/min): 27 Billed Treatment Time 1 visit-ADL 2 (27 min) JANES MILLER December 14, 2021 10:29
--- NOTE | 2021-12-14 10:56 | Physical Therapy Daily Note ---
PT Daily Note-Current Subjective Patient sitting in w/c in BR with STUDENT SERVICES DIRECTOR upon PT arrival, agreeable to treatment and requires assistance with transfer to shower bench. Patient currently rates pain at 0/10. Mental Status Patient Orientation: Person, Place, Time, Situation Attachments: IV Transfers SCALE: Activities may be completed with or without assistive devices. 5-Fkwxfqsxjf-lzoqwdo completes the activity by him/herself with no assistance from a helper. 5-Set-up or Clean-up Assistance-helper sets up or cleans up; patient completes activity. [place] assists only prior to or following the activity. 4-Supervision or Touching Assistance-helper provides verbal cues and/or touching/steadying and/or contact guard assistance as patient completes activity. Assistance may be provided throughout the activity or intermittently. 3-Partial/Moderate Assistance-helper does LESS THAN HALF the effort. [place] lifts, holds or supports trunk or limbs, but provides less than half the effort. 2-Substantial/Maximal Assistance-helper does MORE THAN HALF the effort. [place] lifts or holds trunk or limbs and provides more than half the effort. 9-Phtyoghca-qxrean does ALL the effort. Patient does none of the effort to complete the activity. Or, the assistance of 2 or more helpers is required for the patient to complete the activity. If activity was not attempted, code reason: 7-Patient Refused. 9-Not Applicable-not attempted and the patient did not perform the activity before the current illness, exacerbation or injury. 10-Not Attempted due to Environmental Limitations-(lack of equipment, weather restraints, etc.). 88-Not Attempted due to Medical Conditions or Safety Concerns. Sit to Stand (QC): 3 Chair/Vsr-gu-Vkhff Xfer(QC): 3 Toilet Transfer (QC): 2 Gait Training Does the Patient Walk?: Yes Distance: 12, 8, 10, 8 feet Walk 10 feet (QC): 2 Gait Persons Needed: 2 Gait Assistive Device: Walker Vitor Wheelchair Training Does the Pt Use a Wheelchair?: Yes Assessment Current Status: Fair Progress Patient performed all observed transfers with mod/max assistance. Patient transfers from w/c to shower bench with max A due to tight space and wet floor. Patient performs bathing with OT. Patient then transferred back to the w/c and was pushed by this PT into the perez. Patient ambulates 12 ft, 8 ft, 10 ft, 8 ft with vitor-walker in right UE, with mod A and frequent verbal cues for posture, safety, gait pattern and progression. Patient ambulates with step to gait pattern on the left LE. He is able to move the vitor-walker forwards with his right UE, however ~25 % of the time moves it to far, setting up a potential fall risk. He fatigues quickly, however puts forth his best effort. Educated each gait repetition to reach for the w/c while sitting down. Patient was transported via w/c back to his room with his and daughter, call light in reach, all needs met, nurse notified. He is highly motivated and will continue to benefit from skilled Physical therapy intervention to improve upon the above listed deficits and attempt to progress his current level of function to as high as possible. PT Jail Goals Rn Liaison Goals PT Rn Liaison Goals Time Frame: December 18, 2021 Roll Left & Right (QC): 4 Sit to Lying (QC): 4 Lying-Sitting on Side/Bed(QC): 4 Sit to Stand (QC): 3 Chair/Nol-dm-Ryqrx Xfer(QC): 3 Walk 10 feet (QC): 3 Walk 50ft with 2 Turns (QC): 3 PT Plan Treatment/Plan Treatment Plan: Continue Plan of Care Treatment Plan: Bed Mobility, Education, Functional Activity Isidra, Functional Strength, Gait, Safety, Therapeutic Exercise, Transfers Treatment Duration: December 18, 2021 Frequency: 6 times per week Estimated Hrs Per Day: .5 hour per day Patient and/or Family Agrees t: Yes Safety Risks/Education Patient Education: Gait Training, Transfer Techniques Teaching Recipient: Patient, Family Teaching Methods: Demonstration, Discussion Response to Teaching: Reinforcement Needed Time/GCodes Time In: 920 Time Out: 1010 Total Billed Treatment Time: 40 Total Billed Treatment Visit, Whitney (2), FA, time from 9:20-9:28, then 9:40-10:12 ONEYDA PALOMINO PT December 14, 2021 10:56
--- NOTE | 2021-12-14 11:42 | Speech Therapy Daily Note ---
Speech Daily Progress Note Subjective Date Seen by Provider: December 14, 2021 Time Seen by Provider: 11:22 The patient was seated upright in his wheelchair, awake and alert upon entrance to his room by the clinician. The patient greeted the clinician appropriately and was agreeable to participation in the dysphagia treatment and follow up session. Objective The patient denied s/s of suspected aspiration with nectar-thick liquids "if I just go slow and pace myself" or regular consistency solids. The patient stated he additionally does not experience "coughing episodes" with ice chips "if I just get the ice and not the water." The importance of small bites and sips was discussed, as well as, one to two ice chips at a time (as the patient was consuming large scoops of multiple ice chips). The patient verbalized comprehension of the discussed material and denied additional questions. The patient's time of the MBS was shared, as well. The patient consumed small, single cup edge drinks of nectar-thick water and single ice chips for the clinician. Overt s/s of suspected aspiration were not demonstrated and the patient's vocal quality remained clear. The clinician introduced the effortful swallow exercise and the patient completed the demonstrated exercise with high accuracy. The patient was encouraged to practice the exercise throughout his day with ten repetitions completed. Assessment Assessment Current Status: Good Progress Treatment Plan Continue Plan of Care Speech Short Term Goals Short Term Goals Short Term Goals 1. The patient and staff will follow safe swallowing protocols with 90% accuracy, independently. Time Frame-STG: Three Days. Speech Kier Pleater Goals Kier Pleater Goals 1. The patient will demonstrate tolerance of the least restricted diet consistency without s/s of suspected aspiration. Time Frame: One Week. Speech-Plan Treatment Plan Speech Therapy Treatment Plan: Continue Plan of Care Treatment Duration: December 21, 2021 Frequency: 2 times per week Estimated Hrs Per Day: .25 hour per day Rehab Potential: Fair Pt/Family Agrees to Plan: Yes Safety Risks/Education Teaching Recipient: Patient Teaching Methods: Demonstration, Discussion Response to Teaching: Verbalize Understanding, Return Demonstration Education Topics Provided: Safe Swallowing Strategies, Recommendations, Plan of Care, Effortful Swallow Time Speech Therapy Time In: 11:22 Speech Therapy Time Out: 11:30 Total Billed Time: 8 Billed Treatment Time 1, SILVERIO Anderson December 14, 2021 11:42
[2021-12-14 16:00] VITALS: BP 106/66
--- NOTE | 2021-12-14 19:26 | Progress Note - Hospitalist ---
Subjective HPI/CC On Admission Date Seen by Provider: December 14, 2021 Time Seen by Provider: 09:00 Valentin Talbert is a 66 year old male with PMH glioblastoma s/p surgery, radiation, and chemotherapy, who presented with pancytopenia. He has not been feeling well for the past week. He has been having weakness which has been more pronounced over that time. His chemotherapy was stopped a couple weeks ago due to his low platelet count. He denies any bleeding. He denies rash. He denies fevers and chills. He denies shortness of breath or cough. He denies chest pain. He denies abdominal pain. He denies diarrhea. He recently completed an antibiotic. Subjective/Events-last exam Pt reports doing well. he is frustratetd by hiis denial to IRU and is requesting referral be sent to another IRU facility. He is very motivated and would like to be able to work with intensive therapy with goal to DC home after that. He has been in an IRF before following his resection and did well. Daughter is at bedside and requests referral be sent to [facility]. Objective Exam Vital Signs Vital Signs Date Time Temp Pulse Resp B/P (MAP) Pulse Ox O2 Delivery O2 Flow Rate FiO2 12/14/21 16:00 36.7 92 19 106/66 (79) 92 Room Air Capillary Refill : Less Than 3 Seconds General Appearance: No Apparent Distress, Chronically ill, Obese Respiratory: Lungs Clear, No Respiratory Distress Cardiovascular: Regular Rate, Rhythm, No Murmur Neurologic/Psychiatric: Alert, Oriented x3 Results/Procedures Lab Laboratory Tests 12/14/21 05:30 Patient resulted labs reviewed. Imaging: Reviewed Imaging Report Assessment/Plan Assessment and Plan Assess & Plan/Chief Complaint Pancytopenia Glioblastoma Likely due to chemotherapy though given prolonged nature at this point may need a bone marrow biopsy Dr. Sanchez following, appreciate recs Platelet count essentially stable- at 13 today s/p 1 unit platelets Transfuse for platelets <10 Continue dexamethasone 2mg, weaning dose CT Head without evidence of bleeding Many meds could contribute to pancytopenia including: TMZ (chemotherapy), Zyprexa, Coreg, Lasix, and Keppra Timing of cytopenias lines up with TMZ though TMZ has been associated with aplastic anemia as well- discussed with Dr Song who suggested Granix, also stated he would wait a couple more weeks prior to doing a bone marrow biospy Hold Zyprexa Dysphagia Cough Swallow evaluation requested Chest xray no acute abnormalities Sputum culture pending Regular diet, nectar thick liquids- barium swallow tomorrow Debility PT/OT IRF evaluation- declined by IRF here, family requests referral be placed to IRF in [place], [place]- social work assisting appreciate their help HTN Insomnia Leg swelling Obesity Continue home meds Continue Lasix Griffin abebee ordered Zyprexa held, but melatonin and ambien available LAURENT MTZ MD December 14, 2021 19:25
[2021-12-14] MEDS ORDERED: TBO-FILGRASTIM 300 MCG/0.5 ML (GRANIX) SQ SCH (19:30)
[2021-12-15] VITALS (8 sets, daily range): BP systolic 105–138; BP diastolic 62–86
[2021-12-15] MEDS: ZOLPIDEM 5 MG (AMBIEN) TAB PO PRN (00:34)
[2021-12-15 06:10] LABS: BASOPHILS % (AUTO) 0 % (0-10); EOSINOPHILS % (AUTO) 0 % (0-10)
[2021-12-15 06:11] LABS: HEMATOCRIT 30 % (40-54); HEMOGLOBIN 10.2 g/dL (13.3-17.7); LYMPHOCYTES # (AUTO) 0.6 10^3/uL (1.0-4.0); LYMPHOCYTES % (AUTO) 67 % (12-44); MEAN CORPUSCULAR HEMOGLOBIN 33 pg (25-34); MEAN CORPUSCULAR HGB CONC 34 g/dL (32-36); MEAN CORPUSCULAR VOLUME 97 fL (80-99); MONOCYTES # (AUTO) 0.1 10^3/uL (0.0-1.0); MONOCYTES % (AUTO) 8 % (0-12); NEUTROPHILS # (AUTO) 0.2 10^3/uL (1.8-7.8); NEUTROPHILS % (AUTO) 26 % (42-75)
[2021-12-15 06:19] LABS: PLATELET COUNT 11 10^3/uL (130-400); WHITE BLOOD COUNT 0.9 10^3/uL (4.3-11.0)
[2021-12-15 06:21] LABS: CALCIUM 8.6 MG/DL (8.5-10.1)
[2021-12-15 06:22] LABS: TOTAL PROTEIN 5.4 GM/DL (6.4-8.2)
[2021-12-15 06:26] LABS: CREATININE SERUM 1.07 MG/DL (0.60-1.30)
[2021-12-15] MEDS: KCL 20 MEQ TAB (K-DUR) PO SCH (06:49)
[2021-12-15] MEDS: MAGNESIUM 1 GM/100 ML IVPB 100 ML IV SCH (06:49)
[2021-12-15] MEDS: POTASSIUM CL 10MEQ/50ML IVPB 50 ML IV SCH (06:49)
[2021-12-15] MEDS ORDERED: TBO-FILGRASTIM 480 MCG/0.8 ML (GRANIX) SQ NR (08:00)
[2021-12-15] MEDS: NYSTATIN ORAL SUSP 5 ML UDC PO SCH ×7 (09:25→21:53)
[2021-12-15] MEDS: TAMSULOSIN 0.4 MG (FLOMAX) CAP PO SCH (09:26)
[2021-12-15] MEDS: VALSARTAN 80 MG (DIOVAN) TAB PO SCH (09:26)
[2021-12-15] MEDS: fluCOnazole (DIFLUCAN) 100 MG TAB PO SCH (09:27)
[2021-12-15] MEDS: FUROSEMIDE 40 MG (LASIX) TAB PO SCH (09:27)
[2021-12-15] MEDS: amLODIPine 10 MG (NORVASC) TAB PO SCH (09:27)
[2021-12-15] MEDS: BENZONATATE 100 MG (TESSALON) CAPSULE PO PRN ×2 (09:27→21:26)
[2021-12-15] MEDS: guaiFENesin (MUCINEX) 600 MG TAB PO SCH ×2 (09:27→21:27)
[2021-12-15] MEDS ORDERED: diphenhydrAMINE 25 MG TAB (BENADRYL) PO PRN (09:30)
--- NOTE | 2021-12-15 09:34 | Progress Note ---
Standard Progress Note Progress Notes/Assess & Plan Date Seen by a Provider: December 15, 2021 Time Seen by a Provider: 09:24 Progress/Assessment & Plan 66 yo male with GBM of right high parietal area, s/p gross total resection and adjuvant chemoradiation with temozolamide regimen. Temozolamide stopped on 11/20/2021 due to thrombocytopenia. Radiation completed 12/03/2021. Admitted with significant thrombocytopenia and received 1 unit platelet transfusion 12/09/21 night. No temperature spikes. Evidence of oral candidiasis and on treatment with Diflucan and Nystatin with improvement in symptoms. Swallow study pending due to choking episodes after drinking thin liquids. On weaning dose of dexamethasone at 4 mg daily. May decrease to 2 mg daily AM. No petechiae. Left hemipareisis stable. Lower extremity swelling better. Rest of exam unchanged. Vital Sign - Last 12Hours Date Time Temp Pulse Resp B/P (MAP) Pulse Ox O2 Delivery O2 Flow Rate FiO2 12/15/21 07:35 36.2 71 18 138/86 (103) 96 Room Air Laboratory Tests 12/15/21 05:31: White Blood Count 0.9*L, Red Blood Count 3.08L, Hemoglobin 10.2L, Hematocrit 30L , Mean Corpuscular Volume 97, Mean Corpuscular Hemoglobin 33, Mean Corpuscular Hemoglobin Concent 34, Red Cell Distribution Width 16.1H, Platelet Count 11*L, Mean Platelet Volume 10.0, Immature Granulocyte % (Auto) 0, Neutrophils (%) (Auto) 26L, Lymphocytes (%) (Auto) 67H, Monocytes (%) (Auto) 8, Eosinophils (%) (Auto) 0, Basophils (%) (Auto) 0, Neutrophils # (Auto) 0.2L, Lymphocytes # (Auto) 0.6L, Monocytes # (Auto) 0.1, Eosinophils # (Auto) 0.0, Basophils # (Auto) 0.0, Immature Granulocyte # (Auto) 0.0, Percent Immature Platelet Fraction 2.9, Sodium Level 144, Potassium Level 4.0, Chloride Level 105, Carbon Dioxide Level 27, Anion Gap 12, Blood Urea Nitrogen 45H, Creatinine 1.07, Estimat Glomerular Filtration Rate 76, BUN/Creatinine Ratio 42, Glucose Level 123H, Calcium Level 8.6, Corrected Calcium 9.4, Magnesium Level 2.0, Total Bilirubin 1.0, Aspartate Amino Transf (AST/SGOT) 18, Alanine Aminotransferase (ALT/SGPT) 34, Alkaline Phosphatase 69, Total Protein 5.4L, Albumin 3.0L Microbiology 12/12/21 Gram Stain - Final, Complete 12/12/21 Sputum Culture - Final, Complete Usual upper respiratory amy Blood counts not improving 4 weeks after stopping temodar and 2 weeks after completing radiation. Continued grade IV neutropenia and thrombocytopenia. Discussed about bonemarrow evaluation and patient and family agreeable. Schedule it with interventional radiology. Patient will need platelet support prior to procedure. Continue aggressive rehab as patient is making progress and ambulating in hallway. Will follow patient with you. PHILLIP THOMPSON December 15, 2021 09:34
--- NOTE | 2021-12-15 09:45 | Speech Therapy Progress Note ---
Therapy Progress Note Speech Pathology: Speech pathology was notified by the Radiology department at 0930 that the scheduled modified barium swallow at 0945 could not be performed on this date as the radiologist necessary for the procedure would not be available (unknown reason). Radiology will contact the RN with the updated information and the clinician with information regarding the first available rescheduled time for the procedure. SILVERIO GALLAGHER December 15, 2021 09:45
--- NOTE | 2021-12-15 09:48 | Physical Therapy Daily Note ---
PT Daily Note-Current Subjective Patient lying supine in bed upon PT arrival, in the room, both agreeable to treatment. Patient rates pain currently at 0/10. Reports he needs to use the BR before any walking. Mental Status Patient Orientation: Person, Place, Time, Situation Transfers SCALE: Activities may be completed with or without assistive devices. 1-Vgudnpgohs-juwrdpy completes the activity by him/herself with no assistance from a helper. 5-Set-up or Clean-up Assistance-helper sets up or cleans up; patient completes activity. [place] assists only prior to or following the activity. 4-Supervision or Touching Assistance-helper provides verbal cues and/or touching/steadying and/or contact guard assistance as patient completes activity. Assistance may be provided throughout the activity or intermittently. 3-Partial/Moderate Assistance-helper does LESS THAN HALF the effort. [place] lifts, holds or supports trunk or limbs, but provides less than half the effort. 2-Substantial/Maximal Assistance-helper does MORE THAN HALF the effort. [place] lifts or holds trunk or limbs and provides more than half the effort. 8-Shgheokxh-yplkrf does ALL the effort. Patient does none of the effort to complete the activity. Or, the assistance of 2 or more helpers is required for the patient to complete the activity. If activity was not attempted, code reason: 7-Patient Refused. 9-Not Applicable-not attempted and the patient did not perform the activity before the current illness, exacerbation or injury. 10-Not Attempted due to Environmental Limitations-(lack of equipment, weather restraints, etc.). 88-Not Attempted due to Medical Conditions or Safety Concerns. Roll Left & Right (QC): 3 Sit to Lying (QC): 3 Lying to Sitting/Side of Bed(Q: 3 Sit to Stand (QC): 3 Chair/Lqn-jf-Ocpvy Xfer(QC): 3 Toilet Transfer (QC): 3 Gait Training Does the Patient Walk?: Yes Distance: 15, 10, 15, 20 feet Walk 10 feet (QC): 3 Gait Persons Needed: 2 Gait Assistive Device: Walker Vitor Patient ambulates with step to gait pattern on the left LE, vitor-walker in the right UE and poor posture. He demonstrates a narrow LIZBETH with shortened stride length bilaterally, leads with the left LE and tends to cross the mid-line at times. Patient displays a forward trunk posture with head down and rounded shoulders. He is able to elevate his head to view where he is ambulating with verbal cues, however quickly returns his gaze to the ground. Patient demonstrates poor TKE bilaterally and is unable to obtain < ~ 15 degrees with verbal cues. Assessment Current Status: Fair Progress Patient requires mod A for all observed bed mobility and transfers. Patient ambulates 15 feet to the BR, requires max A for removal of shorts. Patient requires mod/max A x 2 for standing and cleaning with COLLATERAL SPECIALIST. Patient ambulates 10 feet, 15 feet, then 20 feet after using the BR with vitor-walker, with mod A and frequent verbal cues for posture, safety, progression and to avoid obstacles. Patient ambulates with step to gait pattern on the left LE, vitor-walker in the right UE and poor posture. He demonstrates a narrow LIZBETH with shortened stride length bilaterally, leads with the left LE and tends to cross the mid-line at times. Patient displays a forward trunk posture with head down and rounded shoulders. He is able to elevate his head to view where he is ambulating with verbal cues, however quickly returns his gaze to the ground. Patient demo nstrates poor TKE bilaterally and is unable to obtain < ~ 15 degrees with verbal cues. Patient in w/c in the perez with his talking with Dr. Sanchez post treatment. PT Fpc Goals Fpc Goals PT Fpc Goals Time Frame: December 18, 2021 Roll Left & Right (QC): 4 Sit to Lying (QC): 4 Lying-Sitting on Side/Bed(QC): 4 Sit to Stand (QC): 3 Chair/Yjs-zb-Zzfqy Xfer(QC): 3 Walk 10 feet (QC): 3 Walk 50ft with 2 Turns (QC): 3 PT Plan Treatment/Plan Treatment Plan: Continue Plan of Care Treatment Plan: Bed Mobility, Education, Functional Activity Isidra, Functional Strength, Gait, Safety, Therapeutic Exercise, Transfers Treatment Duration: December 18, 2021 Frequency: 6 times per week Estimated Hrs Per Day: .5 hour per day Patient and/or Family Agrees t: Yes Safety Risks/Education Patient Education: Gait Training, Transfer Techniques Teaching Recipient: Patient, Family Teaching Methods: Demonstration, Discussion Response to Teaching: Verbalize Understanding, Reinforcement Needed Time/GCodes Time In: 821 Time Out: 910 Total Billed Treatment Time: 42 Total Billed Treatment Visit, FA, Gait (2) ONEYDA PALOMINO PT December 15, 2021 09:48
--- NOTE | 2021-12-15 10:49 | Progress Note - Hospitalist ---
Subjective HPI/CC On Admission Date Seen by Provider: December 15, 2021 Time Seen by Provider: 10:45 Valentin Talbert is a 66 year old male with PMH glioblastoma s/p surgery, radiation, and chemotherapy, who presented with pancytopenia. He has not been feeling well for the past week. He has been having weakness which has been more pronounced over that time. His chemotherapy was stopped a couple weeks ago due to his low platelet count. He denies any bleeding. He denies rash. He denies fevers and chills. He denies shortness of breath or cough. He denies chest pain. He denies abdominal pain. He denies diarrhea. He recently completed an antibiotic. Subjective/Events-last exam Pt reports doing well. No complaints. Planning for barium swallow today. Discussed plan for bone marrow biopsy. Objective Exam Vital Signs Vital Signs Date Time Temp Pulse Resp B/P (MAP) Pulse Ox O2 Delivery O2 Flow Rate FiO2 12/15/21 09:00 Room Air 12/15/21 07:35 36.2 71 18 138/86 (103) 96 Capillary Refill : Less Than 3 Seconds General Appearance: No Apparent Distress, Chronically ill, Obese Respiratory: Lungs Clear, No Respiratory Distress Cardiovascular: Regular Rate, Rhythm, No Murmur Neurologic/Psychiatric: Alert, Oriented x3 Results/Procedures Lab Laboratory Tests 12/15/21 05:31 Patient resulted labs reviewed. Imaging: Reviewed Imaging Report Assessment/Plan Assessment and Plan Assess & Plan/Chief Complaint Pancytopenia Glioblastoma Likely due to chemotherapy though given prolonged nature at this point may need a bone marrow biopsy Dr. Sanchez following, appreciate recs Platelet count essentially stable- at 11 today- Dr Sanchez recommended bone marrow biopsy to family and they are in agreement Discussed with Dr Boone who is out today- potential to schedule it tomorrow Will need platelet transfusion prior to biopsy s/p 1 unit platelets Transfuse for platelets <[address] Head without evidence of bleeding Many meds could contribute to pancytopenia including: TMZ (chemotherapy), Zyprexa, Coreg, Lasix, and Keppra Timing of cytopenias lines up with TMZ though TMZ has been associated with aplastic anemia as well Hold Zyprexa Dysphagia Cough Swallow evaluation requested Chest xray no acute abnormalities Sputum culture pending Regular diet, nectar thick liquids- barium swallow today Debility PT/OT IRF evaluation- declined by IRF here, family requests referral be placed to IRF in [place], [place]- social work assisting appreciate their help HTN Insomnia Leg swelling Obesity Continue home meds Continue Lasix Griffin baeza ordered Zyprexa held, but melatonin and ambien available- ambien is too strong per patient and family- will try benadryl LAURENT Morales MD December 15, 2021 10:49
--- NOTE | 2021-12-15 11:18 | Speech Therapy Daily Note ---
Speech Daily Progress Note Subjective Date Seen by Provider: December 15, 2021 Time Seen by Provider: 10:51 The patient was seated upright in his wheelchair, awake and alert upon entrance to his room by the clinician. The patient's is at bedside and remains for the treatment session. The patient greeted the clinician appropriately and was agreeable to participation in the skilled dysphagia treatment session. Objective The patient was seated upright in his wheelchair at an appropriate and safe position for P.O. trials. The patient was provided three ice chips, five teaspoons of water, multiple small sips of water (single), multiple/consecutive sips of thin liquid via straw, multiple straw drinks of nectar-thick liquid, and multiple teaspoons of puree. - The patient does not display s/s of suspected aspiration with ice chips or teaspoons of water. The patient does display a delayed cough following multiple, consecutive straw drinks of thin liquid and intermittently/inconsistently with small, single sips of water. - The patient does not display any s/s of suspected aspiration with nectar-thick liquid via straw drink or puree. - To note, the patient does display an intermittent, dry cough at baseline. Modified Barium Swallow: - The patient was scheduled for a modified barium swallow on this date at 0945. At 0930, the clinician was notified that the radiologist was unavailable for the procedure on this date and the study would need to be rescheduled. - At 1047 the clinician was notified that the radiologist would not be present for the remainder of the week and radiology was attempting to identify if the the [facility] radiologist would be available for coverage. - The above information was shared with the patient and the patient's by this clinician. Per chart review, the patient was provided a referral to [facility] rehabilitation unit. If the patient is accepted, the patient may complete the modified barium swallow at the transferring facility. The patient's modified barium swallow should not discourage transfer or acceptance to a possible rehabilitation program as the study can be completed at an outside facility. Recommendations: - Continue the current plan of care. Assessment Assessment Current Status: Good Progress Treatment Plan Continue Plan of Care Speech Short Term Goals Short Term Goals Short Term Goals 1. The patient and staff will follow safe swallowing protocols with 90% accuracy, independently. Time Frame-STG: Three Days. Speech Nursing Home Goals Janitorial Assistant Goals 1. The patient will demonstrate tolerance of the least restricted diet consistency without s/s of suspected aspiration. Time Frame: One Week. Speech-Plan Treatment Plan Speech Therapy Treatment Plan: Continue Plan of Care Treatment Duration: December 21, 2021 Frequency: 2 times per week Estimated Hrs Per Day: .25 hour per day Rehab Potential: Fair Safety Risks/Education Teaching Recipient: Patient, Family Teaching Methods: Discussion Response to Teaching: Verbalize Understanding Education Topics Provided: Recommendations, Safe Swallowing Procedures, Plan of Care Time Speech Therapy Time In: 10:51 Speech Therapy Time Out: 11:09 Total Billed Time: 18 Billed Treatment Time 1DIMITRI ELIZAB[address] ST December 15, 2021 11:18
--- NOTE | 2021-12-15 12:53 | Occupational Ther Daily Note ---
OT Current Status-Daily Note Subjective Pt alert, sitting in w/c. Pt agrees to therapy. present in room. No c/o pain. Mental Status/Objective Patient Orientation: Person, Place, Time, Situation ADL-Treatment Pt and educated on upper body dressing and how pt is able to complete upper body grooming using R UE instead of completing all tasks. Mod A with upper body dressing. Therapy Code Descriptions/Definitions Functional [place] Measure: 0=Not Assessed/NA 4=Minimal Assistance 1=Total Assistance 5=Supervision or Setup 2=Maximal Assistance 6=Modified [place] 3=Moderate Assistance 7=Complete IndependenceSCALE: Activities may be completed with or without assistive devices. 3-Utkqcsywvk-omqnkrq completes the activity by him/herself with no assistance from a helper. 5-Set-up or Clean-up Assistance-helper sets up or cleans up; patient completes activity. [place] assists only prior to or following the activity. 4-Supervision or Touching Assistance-helper provides verbal cues and/or touching/steadying and/or contact guard assistance as patient completes activity. Assistance may be provided throughout the activity or intermittently. 3-Partial/Moderate Assistance-helper does LESS THAN HALF the effort. [place] lifts, holds or supports trunk or limbs, but provides less than half the effort. 2-Substantial/Maximal Assistance-helper does MORE THAN HALF the effort. [place] lifts or holds trunk or limbs and provides more than half the effort. 6-Mzwqozzol-ddgohm does ALL the effort. Patient does none of the effort to complete the activity. Or, the assistance of 2 or more helpers is required for the patient to complete the activity. If activity was not attempted, code reason: 7-Patient Refused. 9-Not Applicable-not attempted and the patient did not perform the activity before the current illness, exacerbation or injury. 10-Not Attempted due to Environmental Limitations-(lack of equipment, weather restraints, etc.). 88-Not Attempted due to Medical Conditions or Safety Concerns. Upper Body Dressing (QC): 2 (mod A) Other Treatment Working on increased ROM with L UE using AAROM and PROM with gravity eliminated movements through all planes. Pt demonstrates tightness throughout L UE and has increased pain and tightness at end ranges of all movement. After therapy, pt sitting in recliner with call light/phone in reach. All needs met in room. OT Marble Installer Goals Marble Installer Goals Time Frame: December 17, 2021 Eating (QC): 5 Oral Hygiene (QC): 5 Toileting Hygiene (QC): 3 Shower/Bathe Self (QC): 2 Upper Body Dressing (QC): 3 Lower Body Dressing (QC): 2 Additional Goals: 1-Demonstrate ADL Tasks, 2-Verbalize Understanding, 3- ImproveStrength/Isidra 1=Demonstrate adherence to instructed precautions during ADL tasks. 2=Patient will verbalize/demonstrate understanding of assistive devices/modifications for ADL. 3=Patient will improve strength/tolerance for activity to enable patient to perform ADL's. OT Education/Plan Problem List/Assessment Assessment: Decreased Activ Tolerance, Decreased UE Strength, Impaired Self- Care Skills, Restricted Funct UE ROM Discharge Recommendations Plan/Recommendations: Continue POC Treatment Plan/Plan of Care Patient would benefit from OT for education, treatment and training to promote independence in ADL's, mobility, safety and/or upper extremity function for ADL's. Plan of Care: ADL Retraining, Functional Mobility, UE Funct Exercise/Act, UE Neuromus Re-Ed/Coord Treatment Duration: December 17, 2021 Frequency: 3 times per week (3-5 times per week) Estimated Hrs Per Day: .25 hour per day Rehab Potential: Fair Time/GCodes Start Time: 10:10 Stop Time: 10:40 Total Time Billed (hr/min): 30 Billed Treatment Time 1 visit-ADL 1 (15 min) NM 1 (15 min) JANES MILLER December 15, 2021 12:53
[2021-12-15] MEDS ORDERED: NS IV 500 ML 500 ML IV SCH (13:00)
--- NOTE | 2021-12-15 14:20 | Speech Therapy Progress Note ---
Therapy Progress Note Speech Pathology: Speech pathology was notified by radiology that the rad iologist would not be present for the remainder of the week and a PRN radiologist was not available. Radiology shared with the clinician that Jeff does have the capabilities to perform the modified barium swallow evaluation if the patient is transferred to their facility. The clinician shared the information with the patient, the patient's , the inpatient rehabilitation clerk, and mental health social worker. The patient verbalized comprehension of the material. Speech pathology will continue to follow up with the patient and monitor his progress at this facility. SILVERIO GALLAGHER December 15, 2021 14:20
[2021-12-15] MEDS: MELATONIN 3 MG TABLET PO PRN (21:27)
[2021-12-16 00:16] VITALS: BP 106/63
[2021-12-16 05:45] LABS: BASOPHILS % (AUTO) 0 % (0-10)
[2021-12-16 05:47] LABS: EOSINOPHILS % (AUTO) 1 % (0-10); HEMATOCRIT 27 % (40-54); HEMOGLOBIN 9.1 g/dL (13.3-17.7); LYMPHOCYTES # (AUTO) 0.8 10^3/uL (1.0-4.0); LYMPHOCYTES % (AUTO) 72 % (12-44); MEAN CORPUSCULAR HEMOGLOBIN 33 pg (25-34); MEAN CORPUSCULAR HGB CONC 34 g/dL (32-36); MEAN CORPUSCULAR VOLUME 98 fL (80-99); MEAN PLATELET VOLUME 10.5 fL (9.0-12.2); MONOCYTES # (AUTO) 0.1 10^3/uL (0.0-1.0); MONOCYTES % (AUTO) 6 % (0-12); NEUTROPHILS # (AUTO) 0.2 10^3/uL (1.8-7.8); NEUTROPHILS % (AUTO) 20 % (42-75)
[2021-12-16 05:52] LABS: PLATELET COUNT 31 10^3/uL (130-400); WHITE BLOOD COUNT 1.1 10^3/uL (4.3-11.0)
[2021-12-16 05:54] LABS: POTASSIUM 3.6 MMOL/L (3.6-5.0)
[2021-12-16 05:55] LABS: CALCIUM 8.6 MG/DL (8.5-10.1)
[2021-12-16] MEDS: POTASSIUM CL 10MEQ/50ML IVPB 50 ML IV SCH (05:58)
[2021-12-16] MEDS: KCL 20 MEQ TAB (K-DUR) PO SCH (05:58)
[2021-12-16] MEDS: MAGNESIUM 1 GM/100 ML IVPB 100 ML IV SCH (06:00)
[2021-12-16] MEDS ORDERED: KCL 20 MEQ TAB (K-DUR) PO ONE (06:00)
[2021-12-16 06:02] LABS: MAGNESIUM 1.9 MG/DL (1.6-2.4)
[2021-12-16 07:57] VITALS: BP 128/78
[2021-12-16] MEDS: guaiFENesin (MUCINEX) 600 MG TAB PO SCH ×2 (09:26→21:11)
[2021-12-16] MEDS: VALSARTAN 80 MG (DIOVAN) TAB PO SCH (09:26)
[2021-12-16] MEDS: amLODIPine 10 MG (NORVASC) TAB PO SCH (09:26)
[2021-12-16] MEDS: fluCOnazole (DIFLUCAN) 100 MG TAB PO SCH (09:27)
[2021-12-16] MEDS: TAMSULOSIN 0.4 MG (FLOMAX) CAP PO SCH (09:27)
[2021-12-16] MEDS: FUROSEMIDE 40 MG (LASIX) TAB PO SCH (09:27)
[2021-12-16] MEDS: NYSTATIN ORAL SUSP 5 ML UDC PO SCH ×4 (09:30→21:14)
--- NOTE | 2021-12-16 10:04 | Physical Therapy Daily Note ---
PT Daily Note-Current Subjective Patient sitting in wheelchair upon PT arrival, in the room. Rates pain at 0/10 currently. Mental Status Patient Orientation: Person, Place, Time, Situation Transfers SCALE: Activities may be completed with or without assistive devices. 5-Jqiirwkzwd-gffwnfs completes the activity by him/herself with no assistance from a helper. 5-Set-up or Clean-up Assistance-helper sets up or cleans up; patient completes activity. [place] assists only prior to or following the activity. 4-Supervision or Touching Assistance-helper provides verbal cues and/or touching/steadying and/or contact guard assistance as patient completes acti vity. Assistance may be provided throughout the activity or intermittently. 3-Partial/Moderate Assistance-helper does LESS THAN HALF the effort. [place] lifts, holds or supports trunk or limbs, but provides less than half the effort. 2-Substantial/Maximal Assistance-helper does MORE THAN HALF the effort. [place] lifts or holds trunk or limbs and provides more than half the effort. 0-Vtzfcedwd-rzbrxv does ALL the effort. Patient does none of the effort to complete the activity. Or, the assistance of 2 or more helpers is required for the patient to complete the activity. If activity was not attempted, code reason: 7-Patient Refused. 9-Not Applicable-not attempted and the patient did not perform the activity before the current illness, exacerbation or injury. 10-Not Attempted due to Environmental Limitations-(lack of equipment, weather restraints, etc.). 88-Not Attempted due to Medical Conditions or Safety Concerns. Sit to Stand (QC): 3 Chair/Zze-io-Wiset Xfer(QC): 3 Gait Training Does the Patient Walk?: Yes Distance: 10, 10, 20 feet Walk 10 feet (QC): 3 Gait Assistive Device: Walker Vitor Exercises Seated Therapy Exercises: Ankle pumps, Long arc quads, Hip flexion, Hamstring Curls, Hip abd/add Seated Reps: 20 Assessment Current Status: Fair Progress Patient requires mod A for all observed transfers. Attempted to use left platform FWW. Patient stood x 2 for proper adjustment of platform. Patient a mbulates x2 with platform FWW then with vitor-walker. Patient ambulates 10 feet, 10 feet, then 20 feet with mod A and frequent verbal cues for posture, safety, progression and to avoid obstacles. Patient ambulates with step to gait pattern on the left LE, vitor-walker in the right UE and poor posture. He demonstrates a narrow LIZBETH with shortened stride length bilaterally, leads with the left LE and tends to cross the mid-line at times. Patient displays a forward trunk posture with head down and rounded shoulders. He is able to elevate his head to view where he is ambulating with verbal cues, however quickly returns his gaze to the ground. Patient demonstrates poor TKE bilaterally and is unable to obtain < ~ 15 degrees with verbal cues. When ambulating with the platform FWW, his posture is minimally improved, however he demonstrates increased difficulty with right lateral trunk lean during left LE swing phase. This loss of core movement decreases his ability to move his left LE into swing phase. Will continue to practice with platform FWW, however given his current presentation, the vitor- walker may be the most efficient means of ambulating. Patient performs LE therapeutic exercise as listed above. Patient in wheelchair post treatment with all needs met, nursing notified, call light in hand, in the room. PT Chcf Goals Chcf Goals PT Copy Reader Goals Time Frame: December 18, 2021 Roll Left & Right (QC): 4 Sit to Lying (QC): 4 Lying-Sitting on Side/Bed(QC): 4 Sit to Stand (QC): 3 Chair/Vbb-ny-Ngghr Xfer(QC): 3 Walk 10 feet (QC): 3 Walk 50ft with 2 Turns (QC): 3 PT Plan Treatment/Plan Treatment Plan: Continue Plan of Care Treatment Plan: Bed Mobility, Education, Functional Activity Isidra, Functional Strength, Gait, Safety, Therapeutic Exercise, Transfers Treatment Duration: December 18, 2021 Frequency: 6 times per week Estimated Hrs Per Day: .5 hour per day Patient and/or Family Agrees t: Yes Safety Risks/Education Patient Education: Gait Training, Transfer Techniques, Instructions to Caregiver Teaching Recipient: Patient, Family Teaching Methods: Demonstration, Discussion Response to Teaching: Verbalize Understanding, Reinforcement Needed Time/GCodes Time In: 830 Time Out: 917 Total Billed Treatment Time: 47 Total Billed Treatment Visit, Gait x 2, Ex ONEYDA PALOMINO PT December 16, 2021 10:04
--- NOTE | 2021-12-16 10:52 | Progress Note - Hospitalist ---
Subjective HPI/CC On Admission Date Seen by Provider: December 16, 2021 Time Seen by Provider: 10:49 Valentin Talbert is a 66 year old male with PMH glioblastoma s/p surgery, radiation, and chemotherapy, who presented with pancytopenia. He has not been feeling well for the past week. He has been having weakness which has been more pronounced over that time. His chemotherapy was stopped a couple weeks ago due to his low platelet count. He denies any bleeding. He denies rash. He denies fevers and chills. He denies shortness of breath or cough. He denies chest pain. He denies abdominal pain. He denies diarrhea. He recently completed an antibiotic. Subjective/Events-last exam Pt reports doing well. Working with PT during my visit. Discussed news from [facility] and will continue to work on stabilizing blood counts before attempting transfer there. Discussed that our radiologist is out and unable to perform bone marrow biopsy. Attempting to arrange biopsy through Dr Sanchez. Objective Exam Vital Signs Vital Signs Date Time Temp Pulse Resp B/P (MAP) Pulse Ox O2 Delivery O2 Flow Rate FiO2 12/16/21 08:00 Room Air 12/16/21 07:57 36.0 65 18 128/78 (95) 96 Capillary Refill : Less Than 3 Seconds General Appearance: No Apparent Distress, Obese Respiratory: Lungs Clear, No Respiratory Distress Cardiovascular: Regular Rate, Rhythm, No Murmur Neurologic/Psychiatric: Alert, Oriented x3 Results/Procedures Lab Laboratory Tests 12/16/21 05:28 Patient resulted labs reviewed. Imaging: Reviewed Imaging Report Assessment/Plan Assessment and Plan Assess & Plan/Chief Complaint Pancytopenia Glioblastoma Likely due to chemotherapy though given prolonged nature at this point try to arrange bone marrow biopsy Dr. Sanchez following, appreciate recs Platelet count up to 31 with transfusion in prep for biopsy s/p 1 unit platelets Transfuse for platelets <[address] Head without evidence of bleeding Many meds could contribute to pancytopenia including: TMZ (chemotherapy), Zyprexa, Coreg, Lasix, and Keppra Timing of cytopenias lines up with TMZ though TMZ has been associated with aplastic anemia as well Hold Zyprexa Dysphagia Cough Swallow evaluation requested Chest xray no acute abnormalities Sputum culture MURF Regular diet, nectar thick liquids- barium swallow unable to be done as radiology out Debility PT/OT IRF evaluation- declined by IRF here, family requests referral be placed to IRF in [place], [place]- social work assisting appreciate their help HTN Insomnia Leg swelling Obesity Continue home meds Continue Lasix Griffin baeza ordered Zyprexa held, but melatonin and ambien available- ambien is too strong per patient and family- prn benadryl available LAURENT MTZ MD December 16, 2021 10:52
--- NOTE | 2021-12-16 10:57 | Speech Therapy Daily Note ---
Speech Daily Progress Note Subjective Date Seen by Provider: December 16, 2021 Time Seen by Provider: 10:39 The patient was seated upright in his wheelchair, awake and alert upon entrance to his room by the clinician. The patient greeted the clinician appropriately and was agreeable to participation in the dysphagia treatment session. Objective The patient and clinician reviewed safe swallowing procedures, strategies, and s/s of suspected aspiration with P.O. intake. The patient denied s/s of suspected aspiration with his current P.O. intake, including ice chips. The patient's plan of care was discussed in-depth and the patient verbalized comprehension. Prior to direct visualization of the oropharyngeal swallow function, the clinician does not feel upgrading the patient's diet consistency at bedside is safe due to the intermittent and inconsistent s/s of suspected aspiration with thin liquid (displayed to the clinician and reported by the patient and the patient's family). Due to this, the clinician recommends the patient continue with the current plan of care including a regular diet with nectar-thick liquids. The patient sips on nectar-thick liquids throughout the treatment session without s/s of suspected aspiration. The patient's vocal quality remains clear following the swallow. The patient and clinician reviewed the effortful swallowing exercise, which the patient completes with high accuracy independently. The patient remains highly motivated for improvement, compliant, and pleasant throughout each treatment. Recommendations: - Regular consistency diet with mildly thick (NECTAR-THICK) liquids, as tolerated. - Fully upright and alert for P.O. intake. - Small, single bites and sips, only. - Remain upright for 30 minutes following P.O. intake. - Monitor for s/s of suspected aspiration with P.O. intake. If demonstrated, contact speech pathology. - As the patient displays inconsistent, delayed s/s of suspected aspiration with thin liquids and the patient reports a steady decline in oropharyngeal swallowing function for the prior three weeks, speech pathology recommended a modified barium swallow evaluation to further investigate etiology and plan drew tment. A modified bariums swallow will be completed at the first available appointment with the radiologist and speech pathologist present. If the patient transfers to [facility] please transfer an order for completion of the modified barium swallow at the outside facility. If the patient discharges home, please place an order for completion of the modified barium swallow as an outpatient. Assessment Assessment Current Status: Good Progress Treatment Plan Continue Plan of Care Speech Short Term Goals Short Term Goals Short Term Goals 1. The patient and staff will follow safe swallowing protocols with 90% accuracy, independently. Time Frame-STG: Three Days. Speech Executive Associate Goals Mcfp Goals 1. The patient will demonstrate tolerance of the least restricted diet consistency without s/s of suspected aspiration. Time Frame: One Week. Speech-Plan Treatment Plan Speech Therapy Treatment Plan: Continue Plan of Care Treatment Duration: December 21, 2021 Frequency: 2 times per week Estimated Hrs Per Day: .25 hour per day Rehab Potential: Fair Pt/Family Agrees to Plan: Yes Safety Risks/Education Teaching Recipient: Patient Teaching Methods: Discussion Response to Teaching: Verbalize Understanding Education Topics Provided: Speech Pathology Plan of Care, Recommendations Time Speech Therapy Time In: 10:39 Speech Therapy Time Out: 10:55 Total Billed Time: 15 Billed Treatment Time MaameDIMITRI ELIZABETH ST December 16, 2021 10:57
--- NOTE | 2021-12-16 13:38 | Occupational Ther Daily Note ---
OT Current Status-Daily Note Subjective Pt up EOB with nursing staff, agreeable to OT Tx. Mental Status/Objective Patient Orientation: Normal For Age Attachments: Other-See Comments (MERY chawla) ADL-Treatment Therapy Code Descriptions/Definitions Functional [place] Measure: 0=Not Assessed/NA 4=Minimal Assistance 1=Total Assistance 5=Supervision or Setup 2=Maximal Assistance 6=Modified [place] 3=Moderate Assistance 7=Complete IndependenceSCALE: Activities may be completed with or without assistive devices. 6-Czcxixegtt-ridqmhm completes the activity by him/herself with no assistance from a helper. 5-Set-up or Clean-up Assistance-helper sets up or cleans up; patient completes activity. [place] assists only prior to or following the activity. 4-Supervision or Touching Assistance-helper provides verbal cues and/or touching/steadying and/or contact guard assistance as patient completes activity. Assistance may be provided throughout the activity or intermittently. 3-Partial/Moderate Assistance-helper does LESS THAN HALF the effort. [place] lifts, holds or supports trunk or limbs, but provides less than half the effort. 2-Substantial/Maximal Assistance-helper does MORE THAN HALF the effort. [place] lifts or holds trunk or limbs and provides more than half the effort. 4-Rmbhsdvkd-pgjtdg does ALL the effort. Patient does none of the effort to complete the activity. Or, the assistance of 2 or more helpers is required for the patient to complete the activity. If activity was not attempted, code reason: 7-Patient Refused. 9-Not Applicable-not attempted and the patient did not perform the activity before the current illness, exacerbation or injury. 10-Not Attempted due to Environmental Limitations-(lack of equipment, weather restraints, etc.). 88-Not Attempted due to Medical Conditions or Safety Concerns. Other Treatment Pt up EOB, transferred to w/c using hemiwalker with nursing staff upon OT entering room. Pt educated on w/c mobility within room and out in hallways. Pt required some assistance through doorways and narrow areas. Pt encouraged to use BLE in "walking" motion to move w/c forward. Pt demo'd understanding, but prefers to hook RLE under L and primarily use R leg for movement. Pt able to lock/unlock brakes of chair. Post tx, pt in w/c in room, call light in reach and all needs met. Education OT Patient Education: Correct positioning, Energy conservation, Modified ADL techniques, Progress toward Goal/Update tx plan, Purpose of tx/functional activities, Rehab process, W/C management Teaching Recipient: Patient Teaching Methods: Discussion Response to Teaching: Verbalize Understanding OT Longterm Goals Mixer And Blender Goals Time Frame: December 17, 2021 Eating (QC): 5 Oral Hygiene (QC): 5 Toileting Hygiene (QC): 3 Shower/Bathe Self (QC): 2 Upper Body Dressing (QC): 3 Lower Body Dressing (QC): 2 Additional Goals: 1-Demonstrate ADL Tasks, 2-Verbalize Understanding, 3-Impr oveStrength/Isidra 1=Demonstrate adherence to instructed precautions during ADL tasks. 2=Patient will verbalize/demonstrate understanding of assistive devices/modifications for ADL. 3=Patient will improve strength/tolerance for activity to enable patient to perform ADL's. OT Education/Plan Problem List/Assessment Assessment: Decreased Activ Tolerance, Decreased UE Strength, Impaired Funct Balance, Impaired I ADL's, Impaired Self-Care Skills, Restricted Funct UE ROM Discharge Recommendations Plan/Recommendations: Continue POC Treatment Plan/Plan of Care Patient would benefit from OT for education, treatment and training to promote independence in ADL's, mobility, safety and/or upper extremity function for ADL's. Plan of Care: ADL Retraining, Functional Mobility, UE Funct Exercise/Act, UE Neuromus Re-Ed/Coord Treatment Duration: December 17, 2021 Frequency: 3 times per week (3-5 times per week) Estimated Hrs Per Day: .25 hour per day Rehab Potential: Fair Time/GCodes Start Time: 13:09 Stop Time: 13:29 Total Time Billed (hr/min): 20 Billed Treatment Time 1, JITENDRA BRUMFIELD OT December 16, 2021 13:38
[2021-12-16] MEDS: BENZONATATE 100 MG (TESSALON) CAPSULE PO PRN ×2 (14:53→21:59)
[2021-12-16 16:24] VITALS: BP 100/63
[2021-12-17] VITALS: BP 112/66
[2021-12-17 07:37] VITALS: BP 124/77
[2021-12-17 08:12] LABS: BASOPHILS % (AUTO) 0 % (0-10); EOSINOPHILS % (AUTO) 0 % (0-10); HEMATOCRIT 33 % (40-54); LYMPHOCYTES # (AUTO) 1.1 10^3/uL (1.0-4.0); LYMPHOCYTES % (AUTO) 74 % (12-44); MEAN CORPUSCULAR HEMOGLOBIN 33 pg (25-34); MEAN CORPUSCULAR HGB CONC 34 g/dL (32-36); MEAN CORPUSCULAR VOLUME 98 fL (80-99); MEAN PLATELET VOLUME 10.5 fL (9.0-12.2); MONOCYTES # (AUTO) 0.1 10^3/uL (0.0-1.0); MONOCYTES % (AUTO) 7 % (0-12); NEUTROPHILS # (AUTO) 0.3 10^3/uL (1.8-7.8); NEUTROPHILS % (AUTO) 18 % (42-75); WHITE BLOOD COUNT 1.5 10^3/uL (4.3-11.0)
[2021-12-17 08:26] LABS: CALCIUM 9.3 MG/DL (8.5-10.1)
[2021-12-17 08:30] LABS: CREATININE SERUM 1.07 MG/DL (0.60-1.30); PLATELET COUNT 35 10^3/uL (130-400)
[2021-12-17 08:33] LABS: MAGNESIUM 1.8 MG/DL (1.6-2.4)
[2021-12-17] MEDS: FUROSEMIDE 40 MG (LASIX) TAB PO SCH (08:49)
[2021-12-17] MEDS: amLODIPine 10 MG (NORVASC) TAB PO SCH (08:50)
[2021-12-17] MEDS: guaiFENesin (MUCINEX) 600 MG TAB PO SCH ×2 (08:50→21:09)
[2021-12-17] MEDS: fluCOnazole (DIFLUCAN) 100 MG TAB PO SCH (08:50)
[2021-12-17] MEDS: TAMSULOSIN 0.4 MG (FLOMAX) CAP PO SCH (08:50)
[2021-12-17] MEDS: VALSARTAN 80 MG (DIOVAN) TAB PO SCH (08:50)
[2021-12-17] MEDS: POTASSIUM CL 10MEQ/50ML IVPB 50 ML IV SCH (08:54)
[2021-12-17] MEDS: MAGNESIUM 1 GM/100 ML IVPB 100 ML IV SCH (08:55)
[2021-12-17] MEDS: KCL 20 MEQ TAB (K-DUR) PO SCH (08:55)
[2021-12-17] MEDS: NYSTATIN ORAL SUSP 5 ML UDC PO SCH ×3 (08:56→21:09)
--- NOTE | 2021-12-17 10:19 | Physical Therapy Daily Note ---
PT Daily Note-Current Subjective Patient sitting in w/c upon PT arrival, agreeable to treatment. Patient rates pain currently at 0/10. Reports he feels like he is able to ambulate better with the vitor-walker and wants to focus on its use during ambulation this date. Mental Status Patient Orientation: Person, Place, Time, Situation Transfers SCALE: Activities may be completed with or without assistive devices. 1-Kdvesvhbiy-zkkalxn completes the activity by him/herself with no assistance from a helper. 5-Set-up or Clean-up Assistance-helper sets up or cleans up; patient completes activity. [place] assists only prior to or following the activity. 4-Supervision or Touching Assistance-helper provides verbal cues and/or touching/steadying and/or contact guard assistance as patient completes activity. Assistance may be provided throughout the activity or intermittently. 3-Partial/Moderate Assistance-helper does LESS THAN HALF the effort. [place] lifts, holds or supports trunk or limbs, but provides less than half the effort. 2-Substantial/Maximal Assistance-helper does MORE THAN HALF the effort. [place] lifts or holds trunk or limbs and provides more than half the effort. 9-Zybrxxwfx-uhbllb does ALL the effort. Patient does none of the effort to complete the activity. Or, the assistance of 2 or more helpers is required for the patient to complete the activity. If activity was not attempted, code reason: 7-Patient Refused. 9-Not Applicable-not attempted and the patient did not perform the activity before the current illness, exacerbation or injury. 10-Not Attempted due to Environmental Limitations-(lack of equipment, weather restraints, etc.). 88-Not Attempted due to Medical Conditions or Safety Concerns. Sit to Stand (QC): 3 Chair/Fut-ku-Ryloe Xfer(QC): 3 Gait Training Does the Patient Walk?: Yes Distance: 34,32 Walk 10 feet (QC): 3 Gait Assistive Device: FWW Assessment Current Status: Fair Progress Patient requires mod A for all observed transfers. Patient wants to focus on use of Vitor-walker as he feels he is able to ambulate better with it versus the platform FWW. Patient ambulates 34 feet, 32 feet with mod A and frequent verbal cues for posture, safety, progression and to avoid obstacles. He initially wants to stop at mid-point of first gait repetition, however with verbal cues and movtivation he was able to significantly increase his gait distance. Patient ambulates with step to gait pattern on the left LE, vitor- walker in the right UE and minimally improved posture with verbal cues. He demonstrates a narrow LIZBETH with shortened stride length bilaterally, leads with the left LE and tends to cross the mid-line at times. Patient displays a forward trunk posture with head down and rounded shoulders. He is able to elevate his head to view where he is ambulating with verbal cues, however quickly returns his gaze to the ground. Patient demonstrates poor TKE bilaterally and is unable to obtain < ~ 15 degrees with verbal cues. Patient performs LE therapeutic exercise as listed above. Patient in wheelchair post treatment with all needs met, nursing notified, call light in hand, in the room. PT Fdc Goals Fdc Goals PT Visualization Developer Goals Time Frame: December 18, 2021 Roll Left & Right (QC): 4 Sit to Lying (QC): 4 Lying-Sitting on Side/Bed(QC): 4 Sit to Stand (QC): 3 Chair/Giy-wi-Rezgi Xfer(QC): 3 Walk 10 feet (QC): 3 (MET) Walk 50ft with 2 Turns (QC): 3 PT Plan Treatment/Plan Treatment Plan: Continue Plan of Care Treatment Plan: Bed Mobility, Education, Functional Activity Isidra, Functional Strength, Gait, Safety, Therapeutic Exercise, Transfers Treatment Duration: December 18, 2021 Frequency: 6 times per week Estimated Hrs Per Day: .5 hour per day Patient and/or Family Agrees t: Yes Safety Risks/Education Patient Education: Gait Training, Transfer Techniques Teaching Recipient: Patient, Family Teaching Methods: Demonstration, Discussion Response to Teaching: Verbalize Understanding, Reinforcement Needed Time/GCodes Time In: 935 Time Out: 1000 Total Billed Treatment Time: 25 Total Billed Treatment Visit, Whitney, ONEYDA Fallon PT December 17, 2021 10:19
--- NOTE | 2021-12-17 10:23 | Occupational Ther Daily Note ---
OT Current Status-Daily Note Subjective Pt up in w/c, agreeable to OT tx. Mental Status/Objective Patient Orientation: Normal For Age ADL-Treatment Therapy Code Descriptions/Definitions Functional [place] Measure: 0=Not Assessed/NA 4=Minimal Assistance 1=Total Assistance 5=Supervision or Setup 2=Maximal Assistance 6=Modified [place] 3=Moderate Assistance 7=Complete IndependenceSCALE: Activities may be completed with or without assistive devices. 0-Mjgytmgcfx-qegoqcy completes the activity by him/herself with no assistance from a helper. 5-Set-up or Clean-up Assistance-helper sets up or cleans up; patient completes activity. [place] assists only prior to or following the activity. 4-Supervision or Touching Assistance-helper provides verbal cues and/or touching/steadying and/or contact guard assistance as patient completes activity. Assistance may be provided throughout the activity or intermittently. 3-Partial/Moderate Assistance-helper does LESS THAN HALF the effort. [place] lifts, holds or supports trunk or limbs, but provides less than half the effort. 2-Substantial/Maximal Assistance-helper does MORE THAN HALF the effort. [place] lifts or holds trunk or limbs and provides more than half the effort. 3-Eikqukhcv-bkjnqt does ALL the effort. Patient does none of the effort to complete the activity. Or, the assistance of 2 or more helpers is required for the patient to complete the activity. If activity was not attempted, code reason: 7-Patient Refused. 9-Not Applicable-not attempted and the patient did not perform the activity before the current illness, exacerbation or injury. 10-Not Attempted due to Environmental Limitations-(lack of equipment, weather restraints, etc.). 88-Not Attempted due to Medical Conditions or Safety Concerns. Other Treatment Pt up in w/c, agreeable to OT Tx with focus on increasing ROM LUE. AAROM and PROM provided with gravity eliminated movements through all planes, x10 reps each. Pt reports PROM shoulder flexion stretching but feels good. OT encouraged pt to propel w/c around the room and into the halls with , with focus on using BLEs and RUE in order to move the w/c, pt and verbalize understanding. Post tx, pt in recliner, call light in reach and all needs met. Education OT Patient Education: Correct positioning, Energy conservation, Modified ADL techniques, Progress toward Goal/Update tx plan, Purpose of tx/functional activities, Rehab process Teaching Recipient: Patient Teaching Methods: Discussion Response to Teaching: Verbalize Understanding OT Satellite Dish Installer Goals Satellite Dish Installer Goals Time Frame: December 17, 2021 Eating (QC): 5 Oral Hygiene (QC): 5 Toileting Hygiene (QC): 3 Shower/Bathe Self (QC): 2 Upper Body Dressing (QC): 3 Lower Body Dressing (QC): 2 Additional Goals: 1-Demonstrate ADL Tasks, 2-Verbalize Understanding, 3- ImproveStrength/Isidra 1=Demonstrate adherence to instructed precautions during ADL tasks. 2=Patient will verbalize/demonstrate understanding of assistive devices/modifications for ADL. 3=Patient will improve strength/tolerance for activity to enable patient to perform ADL's. OT Education/Plan Problem List/Assessment Assessment: Decreased Activ Tolerance, Decreased UE Strength, Impaired Funct Balance, Impaired I ADL's, Impaired Self-Care Skills Discharge Recommendations Plan/Recommendations: Continue POC Treatment Plan/Plan of Care Patient would benefit from OT for education, treatment and training to promote independence in ADL's, mobility, safety and/or upper extremity function for ADL's. Plan of Care: ADL Retraining, Functional Mobility, UE Funct Exercise/Act, UE Neuromus Re-Ed/Coord Treatment Duration: December 17, 2021 Frequency: 3 times per week (3-5 times per week) Estimated Hrs Per Day: .25 hour per day Rehab Potential: Fair Time/GCodes Start Time: 08:17 Stop Time: 08:33 Total Time Billed (hr/min): 16 Billed Treatment Time 1, EX JITENDRA COLINDRES OT December 17, 2021 10:23
--- NOTE | 2021-12-17 12:50 | Progress Note - Hospitalist ---
Subjective HPI/CC On Admission Date Seen by Provider: December 17, 2021 Time Seen by Provider: 12:43 Valentin Talbert is a 66 year old male with PMH glioblastoma s/p surgery, radiation, and chemotherapy, who presented with pancytopenia. He has not been feeling well for the past week. He has been having weakness which has been more pronounced over that time. His chemotherapy was stopped a couple weeks ago due to his low platelet count. He denies any bleeding. He denies rash. He denies fevers and chills. He denies shortness of breath or cough. He denies chest pain. He denies abdominal pain. He denies diarrhea. He recently completed an antibiotic. Subjective/Events-last exam Pt reports doing well. No complaints. Feels he is getting stronger with therapy everyday. Objective Exam Vital Signs Vital Signs Date Time Temp Pulse Resp B/P (MAP) Pulse Ox O2 Delivery O2 Flow Rate FiO2 12/17/21 07:37 36.3 59 18 124/77 (93) 95 Room Air Capillary Refill : Less Than 3 Seconds General Appearance: No Apparent Distress, WD/WN Respiratory: Lungs Clear, No Respiratory Distress Extremity: Other (left arm flaccid) Neurologic/Psychiatric: Alert, Oriented x3 Results/Procedures Lab Laboratory Tests 12/17/21 08:00 Patient resulted labs reviewed. Imaging: Reviewed Imaging Report Assessment/Plan Assessment and Plan Assess & Plan/Chief Complaint Pancytopenia Glioblastoma Likely due to chemotherapy though given prolonged nature at this point try to arrange bone marrow biopsy biopsy delayed as radiology out Dr. Sanchez following, appreciate recs Platelet count up to 35 today s/p 1 unit platelets Transfuse for platelets <[address] Head without evidence of bleeding Many meds could contribute to pancytopenia including: TMZ (chemotherapy), Zyprexa, Coreg, Lasix, and Keppra Timing of cytopenias lines up with TMZ though TMZ has been associated with aplastic anemia as well Hold Zyprexa Dysphagia Cough Swallow evaluation requested Chest xray no acute abnormalities Sputum culture MURF Regular diet, nectar thick liquids- barium swallow unable to be done as radiology out until Monday Debility PT/OT IRF evaluation- declined by IRF here, family requests referral be placed to IRF in [place], [place]- social work assisting appreciate their help HTN Insomnia Leg swelling Obesity Continue home meds Continue Lasix Griffin hose ordered Zyprexa held, but melatonin and ambien available- ambien is too strong per patient and family- prn benadryl available LAURENT MTZ MD December 17, 2021 12:50
[2021-12-17 15:43] VITALS: BP 115/70
[2021-12-17] MEDS: BENZONATATE 100 MG (TESSALON) CAPSULE PO PRN (21:09)
[2021-12-18 00:31] VITALS: BP 104/64
[2021-12-18 06:30] LABS: BASOPHILS % (AUTO) 0 % (0-10); EOSINOPHILS % (AUTO) 1 % (0-10)
[2021-12-18 06:32] LABS: HEMATOCRIT 30 % (40-54); LYMPHOCYTES # (AUTO) 0.9 10^3/uL (1.0-4.0); LYMPHOCYTES % (AUTO) 68 % (12-44); MEAN CORPUSCULAR HEMOGLOBIN 33 pg (25-34); MEAN CORPUSCULAR HGB CONC 34 g/dL (32-36); MEAN CORPUSCULAR VOLUME 98 fL (80-99); MEAN PLATELET VOLUME 10.8 fL (9.0-12.2); MONOCYTES # (AUTO) 0.1 10^3/uL (0.0-1.0); MONOCYTES % (AUTO) 8 % (0-12); NEUTROPHILS # (AUTO) 0.3 10^3/uL (1.8-7.8); NEUTROPHILS % (AUTO) 21 % (42-75)
[2021-12-18 06:39] LABS: PLATELET COUNT 39 10^3/uL (130-400); WHITE BLOOD COUNT 1.3 10^3/uL (4.3-11.0)
[2021-12-18 06:44] LABS: CALCIUM 8.9 MG/DL (8.5-10.1); CREATININE SERUM 1.23 MG/DL (0.60-1.30); MAGNESIUM 1.9 MG/DL (1.6-2.4); POTASSIUM 3.7 MMOL/L (3.6-5.0)
[2021-12-18] MEDS: KCL 20 MEQ TAB (K-DUR) PO SCH (06:53)
[2021-12-18] MEDS: POTASSIUM CL 10MEQ/50ML IVPB 50 ML IV SCH (06:53)
[2021-12-18] MEDS: MAGNESIUM 1 GM/100 ML IVPB 100 ML IV SCH (06:53)
[2021-12-18 08:11] VITALS: BP 104/71
[2021-12-18] MEDS: amLODIPine 10 MG (NORVASC) TAB PO SCH (09:05)
[2021-12-18] MEDS: guaiFENesin (MUCINEX) 600 MG TAB PO SCH ×2 (09:05→20:56)
[2021-12-18] MEDS: TAMSULOSIN 0.4 MG (FLOMAX) CAP PO SCH (09:05)
[2021-12-18] MEDS: VALSARTAN 80 MG (DIOVAN) TAB PO SCH (09:05)
[2021-12-18] MEDS: fluCOnazole (DIFLUCAN) 100 MG TAB PO SCH (09:05)
[2021-12-18] MEDS: NYSTATIN ORAL SUSP 5 ML UDC PO SCH ×4 (09:05→20:56)
--- NOTE | 2021-12-18 11:04 | Progress Note - Hospitalist ---
Subjective HPI/CC On Admission Date Seen by Provider: December 18, 2021 Time Seen by Provider: 11:02 Valentin Talbert is a 66 year old male with PMH glioblastoma s/p surgery, radiation, and chemotherapy, who presented with pancytopenia. He has not been feeling well for the past week. He has been having weakness which has been more pronounced over that time. His chemotherapy was stopped a couple weeks ago due to his low platelet count. He denies any bleeding. He denies rash. He denies fevers and chills. He denies shortness of breath or cough. He denies chest pain. He denies abdominal pain. He denies diarrhea. He recently completed an antibiotic. Subjective/Events-last exam Pt reports doing ok today. thinks he is a little slower today and mistook a towel and pillowcase. He thinks it is because he didn't sleep well. No complaints. Would like to have ice cream. Objective Exam Vital Signs Vital Signs Date Time Temp Pulse Resp B/P (MAP) Pulse Ox O2 Delivery O2 Flow Rate FiO2 12/18/21 08:11 36.1 69 18 104/71 (82) 94 Room Air Capillary Refill : Less Than 3 Seconds General Appearance: No Apparent Distress, WD/WN Respiratory: Lungs Clear, No Respiratory Distress Cardiovascular: Regular Rate, Rhythm, No Murmur Results/Procedures Lab Laboratory Tests 12/18/21 06:00 Patient resulted labs reviewed. Imaging: Reviewed Imaging Report Assessment/Plan Assessment and Plan Assess & Plan/Chief Complaint Pancytopenia Glioblastoma Likely due to chemotherapy though given prolonged nature at this point try to arrange bone marrow biopsy biopsy delayed as radiology out Dr. Sanchez following, appreciate recs Platelet count up to 39 today s/p 1 unit platelets Transfuse for platelets <10 Continue dexamethasone 2mg- will stop on Monday as will be done with wean CT Head without evidence of bleeding Many meds could contribute to pancytopenia including: TMZ (chemotherapy), Zyprexa, Coreg, Lasix, and Keppra Timing of cytopenias lines up with TMZ though TMZ has been associated with aplastic anemia as well Hold Zyprexa Repeat CT head if confusion gets worse Dysphagia Cough Swallow evaluation requested Chest xray no acute abnormalities Sputum culture MURF Regular diet, nectar thick liquids- barium swallow unable to be done as radiology out Debility PT/OT IRF evaluation- declined by IRF here, family requests referral be placed to IRF in [place], [place]- social work assisting appreciate their help HTN Insomnia Leg swelling Obesity Continue home meds Hold Lasgertrude baeza ordered Zyprexa held, but melatonin and ambien available- ambien is too strong per patient and family- prn benadryl available LAURENT MTZ MD December 18, 2021 11:04
--- NOTE | 2021-12-18 11:45 | Physical Therapy Daily Note ---
PT Daily Note-Current Subjective Pt is in the wheelchair on arrival and eager to go walk. No pain reported. Mild feeling of dizziness on arrival. Mental Status Patient Orientation: Person, Place, Time, Situation Transfers SCALE: Activities may be completed with or without assistive devices. 7-Lmastuwqcx-klblscu completes the activity by him/herself with no assistance from a helper. 5-Set-up or Clean-up Assistance-helper sets up or cleans up; patient completes activity. [place] assists only prior to or following the activity. 4-Supervision or Touching Assistance-helper provides verbal cues and/or touching/steadying and/or contact guard assistance as patient completes activity. Assistance may be provided throughout the activity or intermittently. 3-Partial/Moderate Assistance-helper does LESS THAN HALF the effort. [place] lifts, holds or supports trunk or limbs, but provides less than half the effort. 2-Substantial/Maximal Assistance-helper does MORE THAN HALF the effort. [place] lifts or holds trunk or limbs and provides more than half the effort. 3-Qqiasamkk-uggcct does ALL the effort. Patient does none of the effort to complete the activity. Or, the assistance of 2 or more helpers is required for the patient to complete the activity. If activity was not attempted, code reason: 7-Patient Refused. 9-Not Applicable-not attempted and the patient did not perform the activity before the current illness, exacerbation or injury. 10-Not Attempted due to Environmental Limitations-(lack of equipment, weather restraints, etc.). 88-Not Attempted due to Medical Conditions or Safety Concerns. Sit to Stand (QC): 3 Gait Training Does the Patient Walk?: Yes Distance: 30ft, 10ft, 12ft Walk 10 feet (QC): 3 Gait Persons Needed: 1 Gait Assistive Device: Walker Vitor Wheelchair Training Does the Pt Use a Wheelchair?: Yes Type of Wheelchair: Manual Pt does not propel the chair at this time due to (L) hemiparesis. Assessment Current Status: Good Progress Pt was very motivated to walk further today but was limited by dizziness. He walked on 3 separate attempts with good (L) foot placement and (I) advancement of the walker. PT Computer Programming Supervisor Goals Computer Programming Supervisor Goals PT Group Home Goals Time Frame: December 18, 2021 Roll Left & Right (QC): 4 Sit to Lying (QC): 4 Lying-Sitting on Side/Bed(QC): 4 Sit to Stand (QC): 3 Chair/Sqo-mt-Womcz Xfer(QC): 3 Walk 10 feet (QC): 3 (MET) Walk 50ft with 2 Turns (QC): 3 PT Plan Treatment/Plan Treatment Plan: Continue Plan of Care Treatment Plan: Bed Mobility, Education, Functional Activity Isidra, Functional Strength, Gait, Safety, Therapeutic Exercise, Transfers Treatment Duration: December 18, 2021 Frequency: 6 times per week Estimated Hrs Per Day: .5 hour per day Patient and/or Family Agrees t: Yes Time/GCodes Time In: 0857 Time Out: 919 Total Billed Treatment Time: 23 Total Billed Treatment 1, gt x2 23 CARLOS MEDEROS PT December 18, 2021 11:45
[2021-12-18 15:30] VITALS: BP 121/69
[2021-12-18 20:11] VITALS: BP 105/56
[2021-12-18] MEDS: BENZONATATE 100 MG (TESSALON) CAPSULE PO PRN (21:05)
[2021-12-18] MEDS ORDERED: LOPERAMIDE 2 MG (IMODIUM) TABLET PO PRN (22:00)
[2021-12-19] VITALS: BP 104/68
[2021-12-19 05:29] LABS: BASOPHILS % (AUTO) 1 % (0-10); EOSINOPHILS % (AUTO) 0 % (0-10); HEMATOCRIT 31 % (40-54); HEMOGLOBIN 10.3 g/dL (13.3-17.7); LYMPHOCYTES # (AUTO) 0.7 10^3/uL (1.0-4.0); LYMPHOCYTES % (AUTO) 56 % (12-44); MEAN CORPUSCULAR HEMOGLOBIN 33 pg (25-34); MEAN CORPUSCULAR HGB CONC 34 g/dL (32-36); MEAN CORPUSCULAR VOLUME 98 fL (80-99); MEAN PLATELET VOLUME 9.9 fL (9.0-12.2); MONOCYTES # (AUTO) 0.2 10^3/uL (0.0-1.0); MONOCYTES % (AUTO) 14 % (0-12); NEUTROPHILS # (AUTO) 0.3 10^3/uL (1.8-7.8); NEUTROPHILS % (AUTO) 23 % (42-75)
[2021-12-19 05:32] LABS: PLATELET COUNT 39 10^3/uL (130-400); WHITE BLOOD COUNT 1.3 10^3/uL (4.3-11.0)
[2021-12-19 05:37] LABS: POTASSIUM 3.9 MMOL/L (3.6-5.0)
[2021-12-19 05:38] LABS: CALCIUM 8.7 MG/DL (8.5-10.1)
[2021-12-19 05:43] LABS: CREATININE SERUM 1.05 MG/DL (0.60-1.30)
[2021-12-19 05:45] LABS: MAGNESIUM 1.8 MG/DL (1.6-2.4)
[2021-12-19] MEDS: KCL 20 MEQ TAB (K-DUR) PO SCH (05:52)
[2021-12-19] MEDS: MAGNESIUM 1 GM/100 ML IVPB 100 ML IV SCH (05:52)
[2021-12-19] MEDS: POTASSIUM CL 10MEQ/50ML IVPB 50 ML IV SCH (05:52)
[2021-12-19 07:12] VITALS: BP 108/66
[2021-12-19] MEDS: VALSARTAN 80 MG (DIOVAN) TAB PO SCH (08:54)
[2021-12-19] MEDS: amLODIPine 10 MG (NORVASC) TAB PO SCH (08:54)
[2021-12-19] MEDS: fluCOnazole (DIFLUCAN) 100 MG TAB PO SCH (09:14)
[2021-12-19] MEDS: TAMSULOSIN 0.4 MG (FLOMAX) CAP PO SCH (09:14)
[2021-12-19] MEDS: guaiFENesin (MUCINEX) 600 MG TAB PO SCH ×2 (09:14→21:00)
[2021-12-19] MEDS: NYSTATIN ORAL SUSP 5 ML UDC PO SCH ×4 (09:14→21:00)
[2021-12-19 11:12] VITALS: BP 102/59
--- NOTE | 2021-12-19 12:42 | Progress Note - Hospitalist ---
Subjective HPI/CC On Admission Date Seen by Provider: December 19, 2021 Valentin Talbert is a 66 year old male with PMH glioblastoma s/p surgery, radiation, and chemotherapy, who presented with pancytopenia. He has not been feeling well for the past week. He has been having weakness which has been more pronounced over that time. His chemotherapy was stopped a couple weeks ago due to his low platelet count. He denies any bleeding. He denies rash. He denies f benny and chills. He denies shortness of breath or cough. He denies chest pain. He denies abdominal pain. He denies diarrhea. He recently completed an antibiotic. Subjective/Events-last exam Patient reports feeling well today. He has his daughter, son-in-law, grandchildren at bedside and he is excited to spend time with him. He has 0 complaints. His daughter followed me outside of the room to express concerns about his word finding. He had difficulty word finding yesterday for few hours and then cleared up. Offered if any worsening symptoms we will repeat CT head and daughter was agreeable with plan. She also expressed concerns about him discharging home. We discussed that [facility] had excepted him for rehab pending further hematological work-up being complete. Objective Exam Vital Signs Vital Signs Date Time Temp Pulse Resp B/P (MAP) Pulse Ox O2 Delivery O2 Flow Rate FiO2 12/19/21 11:12 36.0 84 20 102/59 (73) 95 Room Air Capillary Refill : Less Than 3 Seconds General Appearance: No Apparent Distress, Chronically ill Respiratory: Lungs Clear, No Respiratory Distress Cardiovascular: Regular Rate, Rhythm, No Murmur Gastrointestinal: Normal Bowel Sounds, Non Tender, Soft Neurologic/Psychiatric: Alert, Oriented x3 Results/Procedures Lab Laboratory Tests 12/19/21 05:20 Patient resulted labs reviewed. Imaging: Reviewed Imaging Report Assessment/Plan Assessment and Plan Assess & Plan/Chief Complaint Pancytopenia Glioblastoma Likely due to chemotherapy though given prolonged nature at this point try to arrange bone marrow biopsy biopsy delayed as radiology out Dr. Sanchez following, appreciate recs Platelet count stable at 39 today s/p 1 unit platelets Transfuse for platelets <10 Continue dexamethasone 2mg- will stop on Monday as will be done with wean CT Head without evidence of bleeding Many meds could contribute to pancytopenia including: TMZ (chemotherapy), Zyprexa, Coreg, Lasix, and Keppra Timing of cytopenias lines up with TMZ though TMZ has been associated with aplastic anemia as well Hold Zyprexa Repeat CT head if word finding gets worse Dysphagia Cough Swallow evaluation requested Chest xray no acute abnormalities Sputum culture MURF Regular diet, nectar thick liquids- barium swallow unable to be done as radiology out Debility PT/OT IRF evaluation- declined by IRF here, family requests referral be placed to IRF in [place], [place]- social work assisting appreciate their help HTN Insomnia Leg swelling Obesity Continue home meds Hold Lasix Griffin baeza ordered Zyprexa held, but melatonin and ambien available- ambien is too strong per patient and family- prn benadryl available LAURENT MTZ MD December 19, 2021 12:42
[2021-12-19 16:00] VITALS: BP 119/61
[2021-12-19 20:00] VITALS: BP 118/71
[2021-12-19 23:32] VITALS: BP 103/66
[2021-12-19] MEDS: ACETAMINOPHEN 325 MG TABLET PO PRN (23:32)
[2021-12-20] MEDS ORDERED: PIPERACILLIN SODIUM/TAZOBACTAM 4.5 GM in NS (IVPB) 100 ML IV ONE (01:00)
[2021-12-20] MEDS ORDERED: IBUPROFEN 600 MG (MOTRIN) TAB PO PRN (01:00)
[2021-12-20 02:48] VITALS: BP 79/50
[2021-12-20] MEDS ORDERED: NS IV 1000 ML 1,000 ML IV ONE (03:00)
[2021-12-20] MEDS ORDERED: NS IV 1000 ML 1,000 ML ONE (03:03)
[2021-12-20 03:19] VITALS: BP 91/53
[2021-12-20 04:15] LABS: BASOPHILS % (AUTO) 0 % (0-10); EOSINOPHILS % (AUTO) 0 % (0-10); HEMOGLOBIN 8.8 g/dL (13.3-17.7); MEAN PLATELET VOLUME 10.7 fL (9.0-12.2)
[2021-12-20 04:17] LABS: HEMATOCRIT 26 % (40-54); LYMPHOCYTES # (AUTO) 0.6 10^3/uL (1.0-4.0); LYMPHOCYTES % (AUTO) 55 % (12-44); MEAN CORPUSCULAR HEMOGLOBIN 33 pg (25-34); MEAN CORPUSCULAR HGB CONC 34 g/dL (32-36); MEAN CORPUSCULAR VOLUME 98 fL (80-99); MONOCYTES # (AUTO) 0.2 10^3/uL (0.0-1.0); MONOCYTES % (AUTO) 14 % (0-12); NEUTROPHILS # (AUTO) 0.3 10^3/uL (1.8-7.8); NEUTROPHILS % (AUTO) 30 % (42-75); PLATELET COUNT 65 10^3/uL (130-400)
[2021-12-20 04:20] LABS: WHITE BLOOD COUNT 1.2 10^3/uL (4.3-11.0)
[2021-12-20 04:27] LABS: CALCIUM 8.2 MG/DL (8.5-10.1); CREATININE SERUM 1.41 MG/DL (0.60-1.30); MAGNESIUM 1.5 MG/DL (1.6-2.4); PHOSPHORUS 3.2 MG/DL (2.3-4.7); POTASSIUM 3.4 MMOL/L (3.6-5.0)
[2021-12-20] MEDS ORDERED: NS IV 1000 ML 1,000 ML IV SCH ×2 (04:30→08:00)
[2021-12-20] MEDS ORDERED: VANCOMYCIN INJECTION 1,000 MG in NS (IVPB) 250 ML IV ONE (04:30)
[2021-12-20] MEDS ORDERED: NS IV 500 ML 500 ML IV SCH (05:45)
--- NOTE | 2021-12-20 06:43 | Occ Therapy Progress Note ---
Therapy Progress Note Due to decline in medical status, OT to dismiss from services. New orders will be needed when pt is medically stable and able to actively participate in skilled therapy. JANES MILLER December 20, 2021 06:43
--- NOTE | 2021-12-20 07:22 | Diagnostic Imaging Report ---
Indication: 66-year-old male central line placement evaluate tip position. Comparisons: 12/12/2021 Findings: Single view of the chest shows borderline cardiomegaly with central venous congestion. Some perihilar and bibasilar atelectatic infiltrates are seen but no significant consolidations. There is now a right IJ central line with the tip projected over the mid SVC. Soft tissues and bony thorax are unchanged. IMPRESSION: 1. Heart size upper limits of normal with mild central venous congestion. Some perihilar and bibasilar atelectatic infiltrates are seen. 2. Newly placed right-sided central line tip is projected over the SVC. There is no pneumothorax. Dictated by: Dictated on workstation # [id number]
[2021-12-20] MEDS: NOREPINEPHRINE 8 MG/250 ML 250 ML IV SCH ×5 (07:27→22:56)
[2021-12-20] MEDS: PIPERACILLIN SODIUM/TAZOBACTAM 4.5 GM in NS (IVPB) 100 ML IV SCH ×3 (07:58→23:51)
[2021-12-20] MEDS ORDERED: ALBUMIN 25% 25 GM/100 ML 100 ML IV NR (08:34)
[2021-12-20 08:51] LABS: BILIRUBIN,URINE NEGATIVE (NEGATIVE); CLARITY,URINE CLEAR; COLOR,URINE YELLOW; GLUCOSE, URINE (UA) NEGATIVE (NEGATIVE); KETONES,URINE NEGATIVE (NEGATIVE); LEUKOCYTE ESTERASE ,URINE TRACE (NEGATIVE); NITRITE,URINE NEGATIVE (NEGATIVE); PH,URINE 5.5 (5-9); PROTEIN,URINE NEGATIVE (NEGATIVE)
[2021-12-20] MEDS: POTASSIUM CL 10MEQ/50ML IVPB 50 ML IV SCH ×3 (08:52→13:23)
[2021-12-20] MEDS: KCL 20 MEQ TAB (K-DUR) PO SCH (08:53)
[2021-12-20] MEDS: MAGNESIUM 1 GM/100 ML IVPB 100 ML IV SCH ×3 (08:53→13:22)
[2021-12-20] MEDS: amLODIPine 10 MG (NORVASC) TAB PO SCH (08:54)
[2021-12-20] MEDS: VALSARTAN 80 MG (DIOVAN) TAB PO SCH (08:54)
[2021-12-20 09:03] LABS: BACTERIA,URINE TRACE /HPF; GRANULAR CASTS,URINE RARE /LPF; RBC,URINE RARE /HPF; SQUAMOUS EPITHELIAL CELL,UR RARE /HPF; WBC,URINE RARE /HPF
[2021-12-20] MEDS ORDERED: VANCOMYCIN INJECTION 0.1 MG in NS (IVPB) 250 ML IV SCH (09:45)
--- NOTE | 2021-12-20 09:47 | Consultation - Surgery ---
History of Present Illness History of Present Illness Patient Consulted On(mahendra/time) 12/20/21 06:40 Date Seen by Provider: December 20, 2021 Time Seen by Provider: 06:40 History of Present Illness Consult for central line placement. 66 year old male with glioblastoma and pancytopaenia. Patient having hypotension. Needing pressors. He has received fluid bolus without improvement. Poor venous access currently. He is not having any shortness of breath. No abdominal pain. Denies chest pain. Has pain at hamstrings. Has difficulty communicating type of pain. Denies fever sweats chills shortness of breath or chest pain. Allergies and Home Medications Allergies Coded Allergies: No Known Drug Allergies (Unverified , 12/09/21) Patient Home Medication List Home Medication List Reviewed: Yes Amlodipine Besylate (Amlodipine Besylate) 10 Mg Tablet, 10 MG PO DAILY, (Reported) Entered as Reported by: DESEAN GUNDERSON on 12/10/21950 Last Action: Reviewed Benzonatate (Benzonatate) 200 Mg Capsule, 200 MG PO Q8H PRN for COUGH, (Reported) Entered as Reported by: DESEAN GUNDERSON on 12/10/21950 Last Action: Reviewed Carvedilol (Carvedilol) 6.25 Mg Tablet, 6.25 MG PO BID, (Reported) Entered as Reported by: DESEAN GUNDERSON on 12/10/21950 Last Action: Reviewed Citalopram Hydrobromide (Citalopram HBr) 40 Mg Tablet, 20 MG PO DAILY, (Reported) Entered as Reported by: DESEAN GUNDERSON on 12/10/21956 Last Action: Reviewed Clonidine HCl (Clonidine HCl) 0.1 Mg Tablet, 0.1 MG PO Q6H PRN for SBP >150/80, (Reported) Entered as Reported by: DESEAN GUNDERSON on 12/10/21950 Last Action: Reviewed Cyanocobalamin (Vitamin B-12) (Vitamin B-12) 1,000 Mcg Tablet, 1,000 MCG PO DAILY, (Reported) Entered as Reported by: DESEAN GUNDERSON on 12/10/21950 Last Action: Reviewed Dexamethasone (Dexamethasone) 4 Mg Tablet, 4 MG PO DAILY, (Reported) Entered as Reported by: DESEAN GUNDERSON on 12/10/21950 Last Action: Reviewed Furosemide (Furosemide) 20 Mg Tablet, 40 MG PO DAILY, (Reported) Entered as Reported by: DESEAN GUNDERSON on 12/10/21950 Last Action: Reviewed Levetiracetam (Levetiracetam) 1,000 Mg Tablet, 1,000 MG PO BID, (Reported) Entered as Reported by: DESEAN GUNDERSON on 12/10/21950 Last Action: Reviewed Multivits,Ca,Min/Iron/FA/Lycop (Centrum Men's Tablet) 8 Mg Iron-200 Mcg-600 Mcg Tablet, 1 EACH PO DAILY, (Reported) Entered as Reported by: DESEAN GUNDERSON on 12/10/21950 Last Action: Reviewed Olanzapine (Olanzapine) 2.5 Mg Tablet, 2.5 MG PO HS, (Reported) Entered as Reported by: DESEAN GUNDERSON on 12/10/21950 Last Action: Reviewed [place]-3/Dha/Epa/Fish Oil (Fish Oil 1,000 mg Softgel) 1,000 Mg (120 Mg-180 Mg) Capsule, 1,000 MG PO DAILY, (Reported) Entered as Reported by: DESEAN GUNDERSON on 12/10/21950 Last Action: Reviewed Ondansetron (Ondansetron Odt) 8 Mg Tab.rapdis, 8 MG PO Q8H PRN for NAUSE A/VOMITING-1ST LINE, (Reported) Entered as Reported by: DESEAN GUNDERSON on 12/10/21950 Last Action: Reviewed Potassium Chloride (Potassium Chloride) 10 Meq Capsule.er, 10 MEQ PO BID, (Reported) Entered as Reported by: DESEAN GUNDERSON on 12/10/21950 Last Action: Reviewed Sulfamethoxazole/Trimethoprim (Bactrim Ds Tablet) 1 Each Tablet, 1 EA PO MO,WE,FR, (Reported) Entered as Reported by: DESEAN GUNDERSON on 12/10/21950 Last Action: Reviewed Tamsulosin HCl (Flomax) 0.4 Mg Cap, 0.4 MG PO DAILY, (Reported) Entered as Reported by: DESEAN GUNDERSON on 12/10/21950 Last Action: Reviewed Valsartan (Valsartan) 80 Mg Tablet, 80 MG PO DAILY, (Reported) Entered as Reported by: DESEAN GUNDERSON on 12/10/21950 Last Action: Reviewed Past Cwrfsml-Lmjlkm-Jidftr Hx Patient Social History Smoking Status: Never a Smoker Alcohol Use?: No Have you traveled recently?: No Surgeries History of Surgeries: Yes (Knee replacements bilaterally and left shoulder replacement, brain surgery,) Respiratory Respiratory Disorders: Sleep Apnea Cardiovascular Cardiac Disorders: Hypertension Gastrointestinal Gastrointestinal Disorders: Abdominal Hernia Musculoskeletal Musculoskeletal Disorders: Arthritis Cancer History of Cancer: Yes (glioblastoma) Psychosocial Behavioral Health Disorders: Anxiety Family Medical History Significant Family History: No Pertinent Family Hx Review of Systems-General Constitutional: No chills, No diaphoresis EENTM: No blurred vision, No double vision Respiratory: No cough, No dyspnea on exertion Cardiovascular: No chest pain, No palpitations Gastrointestinal: No abdominal pain, No vomiting Genitourinary: No decreased output Musculoskeletal: No back pain; muscle pain Skin: No change in color, No change in hair/nails Psychiatric/Neurological: Denies Anxiety, Denies Depressed, Denies Emotional Problems All Other Systems Reviewed Negative Unless Noted: Yes (Negative excepted noted.) Physical Exam-General Problems Physical Exam Vital Signs Vital Signs - First Documented 12/14/21 12/20/21 00:01 07:47 Temp 36.4 Pulse 66 Resp 20 B/P (MAP) 105/69 (81) Pulse Ox 97 O2 Delivery NIV CPAP O2 Flow Rate 2.00 Capillary Refill : Less Than 3 Seconds General Appearance: WD/WN, no apparent distress HEENT: PERRL/EOMI, normal ENT inspection Neck: non-tender, supple Respiratory: chest non-tender, no respiratory distress, no accessory muscle use Cardiovascular: regular rate, rhythm, no JVD Gastrointestinal: non tender, soft, hernia Rectal: deferred Back: no CVA tenderness, no vertebral tenderness Extremities: non-tender, normal inspection, no pedal edema Neurologic/Psychiatric: alert, normal mood/affect, oriented x 3 Skin: normal color, warm/dry Lymphatic: no adenopathy Data Review Labs Laboratory Tests 12/20/21 03:25: White Blood Count 1.2*L, Red Blood Count 2.65L, Hemoglobin 8.8L, Hematocrit 26L, Mean Corpuscular Volume 98, Mean Corpuscular Hemoglobin 33, Mean Corpuscular Hemoglobin Concent 34, Red Cell Distribution Width 16.0H, Platelet Count 65L, Mean Platelet Volume 10.7, Immature Granulocyte % (Auto) 2, Neutrophils (%) (Auto) 30L, Lymphocytes (%) (Auto) 55H, Monocytes (%) (Auto) 14H, Eosinophils (%) (Auto) 0, Basophils (%) (Auto) 0, Neutrophils # (Auto) 0.3L, Lymphocytes # (Auto) 0.6L, Monocytes # (Auto) 0.2, Eosinophils # (Auto) 0.0, Basophils # (Auto) 0.0, Immature Granulocyte # (Auto) 0.0, Percent Immature Platelet Fraction 3.9, Sodium Level 143, Potassium Level 3.4L, Chloride Level 107, Carbon Dioxide Level 22, Anion Gap 14, Blood Urea Nitrogen 39H, Creatinine 1.41H, Estimat Glomerular Filtration Rate 55, BUN/Creatinine Ratio 28, Glucose Level 100, Lactic Acid Level 2.62*H, Calcium Level 8.2L, Phosphorus Level 3.2, Magnesium Level 1.5L 12/20/21 05:40: Lactic Acid Level 3.30*H 12/20/21 07:50: Lactic Acid Level 4.26*H 12/20/21 08:45: Urine Color YELLOW, Urine Clarity CLEAR, Urine pH 5.5, Urine Specific [place] 1.015L, Urine Protein NEGATIVE, Urine Glucose (UA) NEGATIVE, Urine Ketones NEGATIVE, Urine Nitrite NEGATIVE, Urine Bilirubin NEGATIVE, Urine Urobilinogen 0.2, Urine Leukocyte Esterase TRACEH, Urine RBC (Auto) NEGATIVE, Urine RBC RARE, Urine WBC RARE, Urine Squamous Epithelial Cells RARE, Urine Crystals NONE, Urine Bacteria TRACE, Urine Casts PRESENT, Urine Granular Casts RARE, Urine Mucus SMALLH, Urine Culture Indicated YES Microbiology 12/19/21 C. difficile GDH Antigen & Toxins - Final, Complete 12/12/21 Gram Stain - Final, Complete 12/12/21 Sputum Culture - Final, Complete Usual upper respiratory amy Assessment/Plan Assessment/Plan Assessment/Plan Sepsis Hypotension Leg swelling Glioblastoma Patient needing central line placed for pressors. He and family understand risks and benefits and wishes to proceed. Procedure: u/s guided right IJ central line placement. Right neck prepped and draped in sterile fashion. 3 mL of 1% lidocaine injected to anesthetize the right neck. Right IJ accessed under u/s guidance. Dark nonpulsatile blood flow. Wire inserted. Needle removed. 11 blade scalpel use to make small incision at insertion point. Dilator advanced over wire and removed. Tripple lumen catheter inserted over wire and wire removed. Catheter secured. All port accessed and flushed without difficulty. Sterile bandage applied. Chest x ray pending. ROMAN BROWER DO December 20, 2021 09:47
[2021-12-20] MEDS: fluCOnazole (DIFLUCAN) 100 MG TAB PO SCH (10:01)
[2021-12-20] MEDS: TAMSULOSIN 0.4 MG (FLOMAX) CAP PO SCH (10:01)
[2021-12-20] MEDS: guaiFENesin (MUCINEX) 600 MG TAB PO SCH ×2 (10:01→21:18)
[2021-12-20] MEDS: NYSTATIN ORAL SUSP 5 ML UDC PO SCH ×4 (10:01→21:19)
[2021-12-20] MEDS ORDERED: VANCOMYCIN 2000 MG/NS 500 ML IVPB IV SCH ×2 (10:30)
[2021-12-20] MEDS ORDERED: TBO-FILGRASTIM 480 MCG/0.8 ML (GRANIX) SQ NR (11:00)
[2021-12-20] MEDS ORDERED: HYDROCORTISONE 100 MG/2 ML (Solu-CORTEF) VIAL IV NR (11:24)
--- NOTE | 2021-12-20 11:57 | Tele-ICU Consult ---
History of Present Illness History of Present Illness Date Seen by Provider: December 20, 2021 Time Seen by Provider: 11:57 Date of Admission (Tele-ICU Physician , consultation) Available chart/ vitals / labs / Images reviewed H&P is from ER notes Patient's information available about PMH, Shx, Fhx allergy reviewed in EMR. ROS as per chart and RN report Now in ICU Video assessment done using teleICU camera, rest of exam as per RN Discussed with RN. Consultants: onc. serrato Hospital course: (12/09) 66 Y/O Male admitted to the floor with Pancytopenia secondary to Chemotherapy for Glioblastoma. (12/20) To ICU for sudden onset of Hypotension after spiking temperature of (38.8) last night aroud (23:00). A/P Shock - on steroids - STRESS DOSE STEROIDS started 12/20 - - monitor for needs for pressors - volume resuscitation Glioblastoma s/p surgery, radiation, and chemotherapy -dexamethasone 2mg - CTH done - no change - Keppra pancytopenia - due to above ? , follow by onc - s/p 1 unit platelets Infection - ? sourse - PCT / immunocompromized with chemo / steroids - Zosyn / vanco sarted 12/20 Dysphagia Lines : R IJ 12/20 (Central Line Necessity Reviewed) Potts: + OG: Nutrition: Analgesia: Anxiety/ delirium VTE Prophylaxis: contraindicated Stress Ulcer Prophylaxis: po Plans in collaboration with bedside consultants and IM MDs. Discussed with RN to reach out if any questions or concerns A total of 33 minutes of critical care time was devoted to this patient today, required to treat and/or prevent further deterioration of critical care condi tion ( as above ) . Allergies and Home Medications Allergies Coded Allergies: No Known Drug Allergies (Unverified , 12/09/21) Home Medications Amlodipine Besylate 10 Mg Tablet, 10 MG PO DAILY, (Reported) Benzonatate 200 Mg Capsule, 200 MG PO Q8H PRN for COUGH, (Reported) Carvedilol 6.25 Mg Tablet, 6.25 MG PO BID, (Reported) Citalopram Hydrobromide 40 Mg Tablet, 20 MG PO DAILY, (Reported) TAKES OF A 20MG TAB Clonidine HCl 0.1 Mg Tablet, 0.1 MG PO Q6H PRN for SBP >150/80, (Reported) Cyanocobalamin (Vitamin B-12) 1,000 Mcg Tablet, 1,000 MCG PO DAILY, (Reported) Dexamethasone 4 Mg Tablet, 4 MG PO DAILY, (Reported) TAKE 4MG DAILY X 7 DAYS (STARTING 12-06-2021) THEN DECREASE TO 2MG DAILY X 7 DAYS Furosemide 20 Mg Tablet, 40 MG PO DAILY, (Reported) TAKES 2 (20MG) TABS Levetiracetam 1,000 Mg Tablet, 1,000 MG PO BID, (Reported) Multivits,Ca,Min/Iron/FA/Lycop 8 Mg Iron-200 Mcg-600 Mcg Tablet, 1 EACH PO DAILY, (Reported) Olanzapine 2.5 Mg Tablet, 2.5 MG PO HS, (Reported) [place]-3/Dha/Epa/Fish Oil 1,000 Mg (120 Mg-180 Mg) Capsule, 1,000 MG PO DAILY, (Reported) Ondansetron 8 Mg Tab.rapdis, 8 MG PO Q8H PRN for NAUSEA/VOMITING-1ST LINE, (Reported) Potassium Chloride 10 Meq Capsule.er, 10 MEQ PO BID, (Reported) Sulfamethoxazole/Trimethoprim 1 Each Tablet, 1 EA PO MO,WE,FR, (Reported) Tamsulosin HCl 0.4 Mg Cap, 0.4 MG PO DAILY, (Reported) Valsartan 80 Mg Tablet, 80 MG PO DAILY, (Reported) Past Medical/Social/Family Hx Patient Social History Tobacco Use?: No Smoking Status: Never a Smoker Use of E-Cig and/or Vaping dev: No Substance use?: No Alcohol Use?: No Pt stated abuse/neglect: No Immunizations Up To Date Tetanus Booster (TDap): Unknown Current Status Advance Directives: No Communicates: Verbally Primary Language: Cymraes Preferred Spoken Language: Cymraes Is interpretation needed?: No Review of Systems Constitutional: see HPI Focused Exam Lactate Level 12/20/21 05:40: Lactic Acid Level 3.30*H 12/20/21 07:50: Lactic Acid Level 4.26*H 12/20/21 10:05: Lactic Acid Level 4.19*H Height, Weight, BMI Height: '" Weight: lbs. oz. kg; 38.90 BMI Method: Lactic Acid Level Laboratory Tests Test 12/20/21 10:05 Lactic Acid Level 4.19 MMOL/L (0.50-2.00) *H Exam Exam Patient acknowledged, consented, and participated in this virtual visit which was conducted using real time audio/video Vital Signs Date Time Temp Pulse Resp B/P (MAP) Pulse Ox O2 Delivery O2 Flow Rate FiO2 12/20/21 11:22 107 18 91 High Flow N/C 8.00 12/20/21 11:00 108 22 101/56 89 OxyMask 8.00 12/20/21 10:50 92 OxyMask 8.00 12/20/21 10:00 101 13 96/68 90 12/20/21 09:00 102 25 80/48 94 Nasal Cannula 2.00 12/20/21 08:00 36.6 12/20/21 08:00 100 102/56 94 Room Air 12/20/21 07:47 Nasal Cannula 2.00 12/20/21 07:27 91 75/46 12/20/21 07:22 Room Air 12/20/21 07:00 91 20 77/45 92 Room Air 12/20/21 07:00 93 12/20/21 06:15 90 23 83/50 92 NIV CPAP 12/20/21 06:00 87 22 77/50 92 NIV CPAP 12/20/21 05:45 85 19 82/47 93 NIV CPAP 12/20/21 05:30 87 16 83/54 94 NIV CPAP 12/20/21 05:15 86 22 85/54 97 NIV CPAP 12/20/21 05:00 82 21 79/53 93 NIV CPAP 12/20/21 04:45 87 19 83/50 95 NIV CPAP 12/20/21 04:30 89 23 75/50 95 NIV CPAP 12/20/21 04:15 89 21 77/48 96 NIV CPAP 12/20/21 04:00 90 21 84/51 94 NIV CPAP 12/20/21 03:45 91 24 73/52 92 NIV CPAP 12/20/21 03:32 93 12/20/21 03:29 36.7 95 25 113/89 92 NIV CPAP 12/20/21 03:19 94 91/53 (66) 90 12/20/21 02:48 37.7 104 20 79/50 (60) 90 12/20/21 01:22 38.8 12/20/21 00:50 38.8 12/19/21 23:32 37.9 122 18 103/66 (78) 91 Room Air 12/19/21 20:00 37.1 106 20 118/71 (87) 93 Room Air 12/19/21 16:00 36.8 92 16 119/61 (80) 93 Room Air I & O 12/20/21 06:59 Intake Total 1640 ml Output Total 575 ml Balance 1065 ml Height & Weight Height: '" Weight: lbs. oz. kg; 38.90 BMI Method: General Appearance: No Apparent Distress, Chronically ill HEENT: PERRL/EOMI, Normal ENT Inspection, Pharynx Normal Neck: Full Range of Motion, Normal Inspection, Non Tender, Supple Respiratory: Lungs Clear, No Respiratory Distress Cardiovascular: Regular Rate, Rhythm, No Murmur Capillary Refill: Less Than 3 Seconds Gastrointestinal: non tender, soft, hernia Extremity: Other (left arm flaccid) Neurologic/Psychiatric: Alert, Oriented x3 Skin: Normal Color, Warm/Dry Lymphatic: No Adenopathy Results Lab Laboratory Tests 12/19/21 05:20 12/20/21 03:25 Assessment/Plan Assessment/Plan ` SHERRY LAY MD December 20, 2021 11:57
[2021-12-20] MEDS ORDERED: VANCOMYCIN 1500 MG/NS 500 ML IVPB IV SCH ×2 (12:00)
[2021-12-20 12:06] VITALS: BP 99/61
[2021-12-20 14:30] LABS: ABG BASE EXCESS -3.3 MMOL/L (-2.5-2.5); ABG OXYGEN SATURATION 97 % (94-100); ABG PCO2 29 MMHG (35-45); ABG PH 7.46 (7.37-7.43); ABG PO2 89 MMHG (79-93); ABG TCO2 20.8 MMOL/L (21.0-31.0); INSPIRED O2 60% BIPAP; VENTILATOR NO
[2021-12-20] MEDS: HYDROCORTISONE 100 MG/2 ML (Solu-CORTEF) VIAL IV SCH ×2 (18:31→23:51)
[2021-12-20] MEDS ORDERED: CATHETER FLUSH 10 ML SYR IVP PRN (18:45)
[2021-12-20] MEDS: ACETAMINOPHEN 325 MG TABLET PO PRN (19:06)
--- NOTE | 2021-12-20 19:12 | Progress Note - Hospitalist ---
Subjective HPI/CC On Admission Date Seen by Provider: December 20, 2021 Time Seen by Provider: 09:25 Valentin Talbert is a 66 year old male with PMH glioblastoma s/p surgery, radiation, and chemotherapy, who presented with pancytopenia. He has not been feeling well for the past week. He has been having weakness which has been more pronounced over that time. His chemotherapy was stopped a couple weeks ago due to his low platelet count. He denies any bleeding. He denies rash. He denies fevers and chills. He denies shortness of breath or cough. He denies chest pain. He denies abdominal pain. He denies diarrhea. He recently completed an antibiotic. Subjective/Events-last exam He was transferred to the ICU overnight. He denies shortness of breath. He still has a cough. He has been having fevers. He has no other complaints or concerns. His family was updated. Focused Exam Lactate Level 12/20/21 10:05: Lactic Acid Level 4.19*H 12/20/21 15:05: Lactic Acid Level 4.00*H 12/20/21 17:17: Lactic Acid Level 6.44*H Objective Exam Vital Signs Vital Signs Date Time Temp Pulse Resp B/P (MAP) Pulse Ox O2 Delivery O2 Flow Rate FiO2 12/20/21 21:33 105 30 95 60.00 12/20/21 20:00 High Flow N/C 12/20/21 20:00 38.7 12/20/21 18:32 131/76 Capillary Refill : Less Than 3 Seconds General Appearance: No Apparent Distress, Obese Respiratory: No Respiratory Distress, Crackles, Decreased Breath Sounds Cardiovascular: No Murmur, Tachycardia Gastrointestinal: Normal Bowel Sounds, Non Tender, Soft Extremity: Normal Inspection, Pedal Edema, Swelling Neurologic/Psychiatric: Alert, Motor Weakness Skin: Normal Color, Warm/Dry Results/Procedures Lab Laboratory Tests 12/20/21 03:25 12/20/21 20:15 Patient resulted labs reviewed. Imaging: Reviewed Imaging Report Assessment/Plan Assessment and Plan Assess & Plan/Chief Complaint Septic shock Lactic acidosis Acute kidney injury Neutropenic fever Gram negative bacteremia Transferred to ICU overnight TeleICU consulted Started on Vancomycin and Zosyn Blood cultures drawn, one set turned positive for gram negative manoj Requiring Levophed Started on Granix Started on stress dose steroids Pancytopenia Glioblastoma Likely due to chemotherapy Dr. Sanchez following Platelet count now improving Bone marrow biopsy on hold Dysphagia Modified barium swallow on hold Speech following NPO Debility PT/OT HTN Insomnia Leg swelling Obesity Diagnosis/Problems Diagnosis/Problems (1) Septic shock Status: Acute (2) Gram-negative bacteremia Status: Acute (3) COURTNEY (acute kidney injury) Status: Acute (4) Lactic acidosis Status: Acute (5) Neutropenic fever Status: Acute (6) Pancytopenia Status: Acute (7) Glioblastoma Status: Acute (8) Leg swelling Status: Acute (9) Dysphagia Status: Acute (10) Cough Status: Acute (11) Debility Status: Acute ELVIA KRAMER MD December 20, 2021 19:12
--- NOTE | 2021-12-20 20:08 | Tele-ICU Progress Note ---
Subjective Date Seen by a Provider: December 20, 2021 Time Seen by a Provider: 20:05 Subjective/Events-last exam lactic acid is increasing no change in hemodynamics or levophed abd distended Sepsis Event Evaluation Height, Weight, BMI Height: '" Weight: lbs. oz. kg; 38.90 BMI Method: Focused Exam Lactate Level 12/20/21 10:05: Lactic Acid Level 4.19*H 12/20/21 15:05: Lactic Acid Level 4.00*H 12/20/21 17:17: Lactic Acid Level 6.44*H Lactic Acid Level Laboratory Tests Test 12/20/21 17:17 Lactic Acid Level 6.44 MMOL/L (0.50-2.00) *H Exam Exam Patient acknowledged, consented, and participated in this virtual visit which was conducted using real time audio/video Vital Signs Date Time Temp Pulse Resp B/P (MAP) Pulse Ox O2 Delivery O2 Flow Rate FiO2 12/20/21 20:00 38.7 12/20/21 19:45 38.8 12/20/21 19:06 38.9 12/20/21 18:55 High Flow N/C 12.00 12/20/21 18:32 114 131/76 12/20/21 18:14 NIV Bilevel 60.00 12/20/21 18:00 112 27 126/74 92 High Flow N/C 12.00 12/20/21 17:00 102 26 106/64 94 High Flow N/C 12.00 12/20/21 16:00 Room Air 12/20/21 16:00 102 6 111/68 97 High Flow N/C 12.00 12/20/21 16:00 37.4 12/20/21 15:00 101 22 110/57 94 High Flow N/C 12.00 12/20/21 14:45 High Flow N/C 12.00 12/20/21 14:43 102 110/68 12/20/21 14:38 High Flow N/C 12.00 12/20/21 14:00 104 24 100/50 96 NIV Bilevel 60.00 12/20/21 13:00 102 12/20/21 13:00 104 22 85/51 90 NIV Bilevel 60.00 12/20/21 12:29 102 24 91 NIV Bilevel 60.00 5/23/22 12:27 102 95/58 12/20/21 12:15 Room Air 12/20/21 12:06 105 23 91 60.00 12/20/21 12:00 37.1 12/20/21 12:00 105 12 104/59 90 High Flow N/C 8.00 12/20/21 11:22 107 18 91 High Flow N/C 8.00 12/20/21 11:00 108 22 101/56 89 OxyMask 8.00 12/20/21 10:50 92 OxyMask 8.00 12/20/21 10:00 101 13 96/68 90 12/20/21 09:30 36.8 12/20/21 09:00 102 25 80/48 94 Nasal Cannula 2.00 12/20/21 08:00 36.6 12/20/21 08:00 100 102/56 94 Room Air 12/20/21 07:47 Nasal Cannula 2.00 12/20/21 07:27 91 75/46 12/20/21 07:22 Room Air 12/20/21 07:15 Room Air 12/20/21 07:00 91 20 77/45 92 Room Air 12/20/21 07:00 93 12/20/21 06:15 90 23 83/50 92 NIV CPAP 12/20/21 06:00 87 22 77/50 92 NIV CPAP 12/20/21 05:45 85 19 82/47 93 NIV CPAP 12/20/21 05:30 87 16 83/54 94 NIV CPAP 12/20/21 05:15 86 22 85/54 97 NIV CPAP 12/20/21 05:00 82 21 79/53 93 NIV CPAP 12/20/21 04:45 87 19 83/50 95 NIV CPAP 12/20/21 04:30 89 23 75/50 95 NIV CPAP 12/20/21 04:15 89 21 77/48 96 NIV CPAP 12/20/21 04:00 90 21 84/51 94 NIV CPAP 12/20/21 03:45 91 24 73/52 92 NIV CPAP 12/20/21 03:32 93 12/20/21 03:29 36.7 95 25 113/89 92 NIV CPAP 12/20/21 03:19 94 91/53 (66) 90 12/20/21 02:48 37.7 104 20 79/50 (60) 90 12/20/21 01:22 38.8 12/20/21 00:50 38.8 12/19/21 23:32 37.9 122 18 103/66 (78) 91 Room Air I & O 12/20/21 07:00 Intake Total 2640 ml Output Total 575 ml Balance 2065 ml Height & Weight Height: '" Weight: lbs. oz. kg; 38.90 BMI Method: General Appearance: No Apparent Distress, Chronically ill HEENT: PERRL/EOMI, Normal ENT Inspection, Pharynx Normal Neck: Full Range of Motion, Normal Inspection, Non Tender, Supple Respiratory: Lungs Clear, No Respiratory Distress Cardiovascular: Regular Rate, Rhythm, No Murmur Capillary Refill: Less Than 3 Seconds Gastrointestinal: non tender, soft, hernia Extremity: Other (left arm flaccid) Neurologic/Psychiatric: Alert, Oriented x3 Skin: Normal Color, Warm/Dry Lymphatic: No Adenopathy Results Lab Laboratory Tests 12/19/21 05:20 12/20/21 03:25 Assessment/Plan Assessment/Plan Lactic acidosis -ddx hypoperfusion/ ischemic gut -kub/ trend lactic aicd -follow bmp CORRY LOUIS MD December 20, 2021 20:08
[2021-12-20 20:37] LABS: POTASSIUM 4.3 MMOL/L (3.6-5.0)
[2021-12-20 20:38] LABS: CALCIUM 8.2 MG/DL (8.5-10.1)
[2021-12-20 20:43] LABS: CREATININE SERUM 1.71 MG/DL (0.60-1.30)
[2021-12-20 21:33] VITALS: BP 128/75
--- NOTE | 2021-12-20 22:43 | Diagnostic Imaging Report ---
EXAMINATION: Abdomen 1 view HISTORY: Abdominal perforation COMPARISON: None available. FINDINGS: There is a mild amount of gas and stool throughout the colon. Nonobstructive bowel gas pattern. No radiopaque foreign body. The lung bases are clear. Degenerative changes of the hips and spine. Osseous structures are otherwise intact. IMPRESSION: Mild stool burden without other acute abnormality in the abdomen. Dictated by: Dictated on workstation # [id number]
[2021-12-20] MEDS: DexMEDEtomidine 250 ML DRIP 250 ML IV SCH (23:51)
[2021-12-21] MEDS: NOREPINEPHRINE 8 MG/250 ML 250 ML IV SCH ×4 (02:33→17:17)
[2021-12-21 05:40] LABS: BASOPHILS % (AUTO) 0 % (0-10); EOSINOPHILS % (AUTO) 0 % (0-10); HEMATOCRIT 27 % (40-54); HEMOGLOBIN 9.2 g/dL (13.3-17.7); LYMPHOCYTES # (AUTO) 0.3 10^3/uL (1.0-4.0); LYMPHOCYTES % (AUTO) 43 % (12-44); MEAN CORPUSCULAR HEMOGLOBIN 33 pg (25-34); MEAN CORPUSCULAR HGB CONC 34 g/dL (32-36); MEAN CORPUSCULAR VOLUME 98 fL (80-99); MEAN PLATELET VOLUME 9.4 fL (9.0-12.2); MONOCYTES # (AUTO) 0.1 10^3/uL (0.0-1.0); MONOCYTES % (AUTO) 13 % (0-12); NEUTROPHILS # (AUTO) 0.2 10^3/uL (1.8-7.8); NEUTROPHILS % (AUTO) 36 % (42-75); PLATELET COUNT 76 10^3/uL (130-400)
[2021-12-21 05:43] LABS: WHITE BLOOD COUNT 0.6 10^3/uL (4.3-11.0)
[2021-12-21 05:48] LABS: ALBUMIN 2.7 GM/DL (3.2-4.5)
[2021-12-21 05:49] LABS: POTASSIUM 4.1 MMOL/L (3.6-5.0)
[2021-12-21 05:50] LABS: CALCIUM 8.1 MG/DL (8.5-10.1)
[2021-12-21 05:51] LABS: TOTAL PROTEIN 5.3 GM/DL (6.4-8.2)
[2021-12-21 05:53] LABS: BILIRUBIN,TOTAL 1.5 MG/DL (0.1-1.0)
[2021-12-21 05:54] LABS: PHOSPHORUS 5.4 MG/DL (2.3-4.7)
[2021-12-21 05:55] LABS: CREATININE SERUM 1.72 MG/DL (0.60-1.30)
[2021-12-21] MEDS: inSUlin ASPART (NovoLOG) 1 UNIT/0.01 ML (CHARGE PER UNIT) SC SCH ×5 (06:04→23:57)
[2021-12-21] MEDS: KCL 20 MEQ TAB (K-DUR) PO SCH (06:04)
[2021-12-21] MEDS: POTASSIUM CL 10MEQ/50ML IVPB 50 ML IV SCH (06:04)
[2021-12-21] MEDS: MAGNESIUM 1 GM/100 ML IVPB 100 ML IV SCH (06:04)
[2021-12-21] MEDS: HYDROCORTISONE 100 MG/2 ML (Solu-CORTEF) VIAL IV SCH ×4 (06:22→23:50)
[2021-12-21] MEDS: NS IV 1000 ML 1,000 ML IV SCH ×2 (06:45→20:47)
--- NOTE | 2021-12-21 07:46 | Physical Therapy Progress Note ---
Therapy Progress Note Due to decline in medical status, PT to dismiss from services. New orders will be needed when pt is medically stable and able to actively participate in skilled therapy. Will continue to follow patient and check for new orders. ONEYDA PALOMINO PT December 21, 2021 07:45
[2021-12-21] MEDS: PIPERACILLIN SODIUM/TAZOBACTAM 4.5 GM in NS (IVPB) 100 ML IV SCH ×3 (08:26→23:50)
[2021-12-21] MEDS: TBO-FILGRASTIM 480 MCG/0.8 ML (GRANIX) SQ SCH (08:26)
[2021-12-21] MEDS: LEVOFLOXACIN 750 MG/D5W 150 ML (PRE-MIX) IV SCH (08:40)
[2021-12-21] MEDS: fluCOnazole (DIFLUCAN) 100 MG TAB PO SCH (09:28)
[2021-12-21] MEDS: VALSARTAN 80 MG (DIOVAN) TAB PO SCH (09:28)
[2021-12-21] MEDS: NYSTATIN ORAL SUSP 5 ML UDC PO SCH ×4 (09:29→20:47)
[2021-12-21] MEDS: TAMSULOSIN 0.4 MG (FLOMAX) CAP PO SCH (09:29)
[2021-12-21] MEDS: guaiFENesin (MUCINEX) 600 MG TAB PO SCH ×2 (09:29→20:47)
[2021-12-21] MEDS: amLODIPine 10 MG (NORVASC) TAB PO SCH (09:29)
--- NOTE | 2021-12-21 10:13 | Speech Therapy Progress Note ---
Therapy Progress Note Pt seen for bedside swallow evaluation in ICU. Pt alert, but fatigued and expressed not hungry. Prior diet of regular solids and nectar thick liquids (NTL). Per family and staff, pt's health has regressed and he is currently NPO. WELDING PROCESS ENGINEER asked Pt if willing to participate in PO trials of solids and NTL. Pt expressed he did not want to eat solids or trial NTL at that time. Pt's expressed Pt has had a dry mouth and Pt is interested in ice chips for hydration. Pt presented with ice chips via spoon by WELDING PROCESS ENGINEER then . No overt s/s aspiration following x5 trials of ice chips. Ice chips were allowed to slowly melt in mouth and Pt did not have dentures present during trials. Pt demonstrated variable alertness during trials and required verbal/tactile input for alertness. WELDING PROCESS ENGINEER educated family on use of ice chips for hydration and improved quality of life. Family was informed to contact WELDING PROCESS ENGINEER/staff if Pt presents with s/s aspiration and if interested in a bedside swallow evaluation at a later time. Nursing informed ice chips are appropriate at this time. KAREN GALLEGOS December 21, 2021 10:13
--- NOTE | 2021-12-21 10:59 | Tele-ICU Progress Note ---
Subjective Date Seen by a Provider: December 21, 2021 Time Seen by a Provider: 10:56 Subjective/Events-last exam (Tele-ICU Physician , Progress Note ) Available chart/ vitals / labs / Images reviewed Video assessment done using teleICU camera, rest of exam as per RN Discussed with RN , EXAM PER RN Events overnight : Afebrile FiO2 - 7L I/O = ++ Drips: Pressors: levo 0.03 Consultants: onc. serrato Hospital course: (12/09) 66 Y/O Male admitted to the floor with Pancytopenia secondary to Chemotherapy for Glioblastoma. (12/20) To ICU for sudden onset of Hypotension after spiking temperature of (38.8) last night aroud (23:00). 12/21 , levo , blood cx from 12/19- + PSA - levofloxacin added 12/21 A/P Shock - on steroids - STRESS DOSE STEROIDS started 12/20 SC 50 q 6 - - volume resuscitation - wean pressors Glioblastoma s/p surgery, radiation, and chemotherapy -SC - CTH done - no change - Keppra pancytopenia - due to above ? , follow by onc - s/p 1 unit platelets Infection - ? source - PCT / immunocompromized with chemo / steroids - Zosyn / vanco started 12/20- blood cx from 12/19- + PSA - levofloxacin added 12/21 COURTNEY - slightly worse Dysphasia - spech evel Lines : R IJ 12/20 (Central Line Necessity Reviewed) Potts: + OG: Nutrition: Analgesia: Anxiety/ delirium VTE Prophylaxis: SCD Stress Ulcer Prophylaxis: po Plans in collaboration with bedside consultants and IM MDs. Discussed with RN to reach out if any questions or concerns A total of 33 minutes of critical care time was devoted to this patient today, required to treat and/or prevent further deterioration of critical care condition ( as above ) . Sepsis Event Evaluation Height, Weight, BMI Height: '" Weight: lbs. oz. kg; 40.96 BMI Method: Focused Exam Lactate Level 12/20/21 17:17: Lactic Acid Level 6.44*H 12/21/21 06:29: Lactic Acid Level 3.00*H 12/21/21 09:00: Lactic Acid Level 2.92*H Lactic Acid Level Laboratory Tests Test 12/21/21 09:00 Lactic Acid Level 2.92 MMOL/L (0.50-2.00) *H Exam Exam Patient acknowledged, consented, and participated in this virtual visit which was conducted using real time audio/video Vital Signs Date Time Temp Pulse Resp B/P (MAP) Pulse Ox O2 Delivery O2 Flow Rate FiO2 12/21/21 09:59 82 111/77 12/21/21 09:00 96 25 142/77 96 High Flow N/C 7.00 12/21/21 08:00 90 24 144/74 96 High Flow N/C 7.00 12/21/21 08:00 38.3 12/21/21 07:52 93 12/21/21 07:41 High Flow N/C 7.00 12/21/21 07:03 97 High Flow N/C 7.00 12/21/21 07:00 90 26 131/73 99 High Flow N/C 7.00 12/21/21 06:03 94 135/72 12/21/21 06:00 94 28 135/72 97 NIV Bilevel 60.00 12/21/21 05:00 91 24 119/73 100 NIV Bilevel 60.00 12/21/21 04:00 92 31 120/75 97 NIV Bilevel 60.00 12/21/21 04:00 High Flow N/C 12.00 12/21/21 03:46 38.0 12/21/21 03:00 84 28 109/70 96 NIV Bilevel 60.00 12/21/21 02:33 88 96/65 12/21/21 02:30 96 High Flow N/C 12.00 12/21/21 02:00 95 28 105/67 97 NIV Bilevel 60.00 12/21/21 01:00 89 12/21/21 01:00 89 28 110/67 98 NIV Bilevel 60.00 12/21/21 00:00 High Flow N/C 12.00 12/21/21 00:00 92 29 121/67 98 NIV Bilevel 60.00 12/20/21 23:51 93 119/67 12/20/21 23:00 98 30 111/68 97 NIV Bilevel 60.00 12/20/21 22:56 96 120/67 12/20/21 22:00 107 31 124/70 95 NIV Bilevel 60.00 12/20/21 21:45 NIV Bilevel 60.00 12/20/21 21:33 105 30 95 60.00 12/20/21 21:00 112 30 128/71 94 High Flow N/C 12.00 12/20/21 20:00 High Flow N/C 12.00 12/20/21 20:00 38.7 12/20/21 20:00 112 32 137/75 95 High Flow N/C 12.00 12/20/21 19:45 105 29 126/69 95 High Flow N/C 12.00 12/20/21 19:45 38.8 12/20/21 19:30 106 26 120/74 94 High Flow N/C 12.00 12/20/21 19:15 113 30 96/54 94 High Flow N/C 12.00 12/20/21 19:06 38.9 12/20/21 19:00 114 12/20/21 19:00 114 25 131/77 95 High Flow N/C 12.00 12/20/21 19:00 114 12/20/21 18:55 High Flow N/C 12.00 12/20/21 18:32 114 131/76 12/20/21 18:14 NIV Bilevel 60.00 12/20/21 18:00 112 27 126/74 92 High Flow N/C 12.00 12/20/21 17:00 102 26 106/64 94 High Flow N/C 12.00 12/20/21 16:00 Room Air 12/20/21 16:00 102 6 111/68 97 High Flow N/C 12.00 12/20/21 16:00 37.4 12/20/21 15:00 101 22 110/57 94 High Flow N/C 12.00 12/20/21 14:45 High Flow N/C 12.00 12/20/21 14:43 102 110/68 12/20/21 14:38 High Flow N/C 12.00 12/20/21 14:00 104 24 100/50 96 NIV Bilevel 60.00 12/20/21 13:00 102 12/20/21 13:00 104 22 85/51 90 NIV Bilevel 60.00 12/20/21 12:29 102 24 91 NIV Bilevel 60.00 12/20/21 12:27 102 95/58 12/20/21 12:15 Room Air 12/20/21 12:06 105 23 91 60.00 12/20/21 12:00 37.1 12/20/21 12:00 105 12 104/59 90 High Flow N/C 8.00 12/20/21 11:22 107 18 91 High Flow N/C 8.00 12/20/21 11:00 108 22 101/56 89 OxyMask 8.00 I & O 12/21/21 06:59 Intake Total 5550 ml Output Total 1875 ml Balance 3675 ml Height & Weight Height: '" Weight: lbs. oz. kg; 40.96 BMI Method: General Appearance: No Apparent Distress, Obese HEENT: PERRL/EOMI, Normal ENT Inspection, Pharynx Normal Neck: Full Range of Motion, Normal Inspection, Non Tender, Supple Respiratory: No Respiratory Distress, Crackles, Decreased Breath Sounds Cardiovascular: No Murmur, Tachycardia Capillary Refill: Less Than 3 Seconds Gastrointestinal: non tender, soft, hernia Extremity: Normal Inspection, Pedal Edema, Swelling Neurologic/Psychiatric: Alert, Motor Weakness Skin: Normal Color, Warm/Dry Lymphatic: No Adenopathy Results Lab Laboratory Tests 12/20/21 03:25 12/20/21 20:15 12/21/21 05:25 Assessment/Plan Assessment/Plan ` SHERRY LAY MD December 21, 2021 10:59
--- NOTE | 2021-12-21 17:04 | Progress Note - Surgery ---
Subjective Date Seen by a Provider: December 21, 2021 Time Seen by a Provider: 16:13 Subjective/Events-last exam Patient still requiring pressors. Denies any pain anywhere. Alert and able to answer questions but seems to have some confusion. Abdominal x ray from last night shows some constipation. Lactic acid was elevated and still elevated but slightly improved. Family at bedside. Focused Exam Lactate Level 12/20/21 17:17: Lactic Acid Level 6.44*H 12/21/21 06:29: Lactic Acid Level 3.00*H 12/21/21 09:00: Lactic Acid Level 2.92*H Objective Exam Vital Signs Date Time Temp Pulse Resp B/P (MAP) Pulse Ox O2 Delivery O2 Flow Rate FiO2 12/21/21 16:38 High Flow N/C 7.00 12/21/21 16:00 36.6 12/21/21 16:00 89 11 124/89 92 High Flow N/C 7.00 12/21/21 15:00 87 23 123/76 96 High Flow N/C 7.00 12/21/21 14:00 90 16 127/76 95 High Flow N/C 7.00 12/21/21 13:00 85 12/21/21 13:00 86 24 127/70 94 High Flow N/C 7.00 12/21/21 12:16 37.6 12/21/21 12:05 High Flow N/C 7.00 12/21/21 12:00 89 25 138/82 95 High Flow N/C 7.00 12/21/21 11:00 84 22 133/75 89 High Flow N/C 7.00 12/21/21 10:00 82 23 117/70 91 High Flow N/C 7.00 12/21/21 09:59 82 111/77 12/21/21 09:00 96 25 142/77 96 High Flow N/C 7.00 12/21/21 08:00 90 24 144/74 96 High Flow N/C 7.00 12/21/21 08:00 38.3 12/21/21 07:52 93 12/21/21 07:41 High Flow N/C 7.00 12/21/21 07:03 97 High Flow N/C 7.00 12/21/21 07:00 90 26 131/73 99 High Flow N/C 7.00 12/21/21 06:03 94 135/72 12/21/21 06:00 94 28 135/72 97 NIV Bilevel 60.00 12/21/21 05:00 91 24 119/73 100 NIV Bilevel 60.00 12/21/21 04:00 92 31 120/75 97 NIV Bilevel 60.00 12/21/21 04:00 High Flow N/C 12.00 12/21/21 03:46 38.0 12/21/21 03:00 84 28 109/70 96 NIV Bilevel 60.00 12/21/21 02:33 88 96/65 12/21/21 02:30 96 High Flow N/C 12.00 12/21/21 02:00 95 28 105/67 97 NIV Bilevel 60.00 12/21/21 01:00 89 12/21/21 01:00 89 28 110/67 98 NIV Bilevel 60.00 12/21/21 00:00 High Flow N/C 12.00 12/21/21 00:00 92 29 121/67 98 NIV Bilevel 60.00 12/20/21 23:51 93 119/67 12/20/21 23:00 98 30 111/68 97 NIV Bilevel 60.00 12/20/21 22:56 96 120/67 12/20/21 22:00 107 31 124/70 95 NIV Bilevel 60.00 12/20/21 21:45 NIV Bilevel 60.00 12/20/21 21:33 105 30 95 60.00 12/20/21 21:00 112 30 128/71 94 High Flow N/C 12.00 12/20/21 20:00 High Flow N/C 12.00 12/20/21 20:00 38.7 12/20/21 20:00 112 32 137/75 95 High Flow N/C 12.00 12/20/21 19:45 105 29 126/69 95 High Flow N/C 12.00 12/20/21 19:45 38.8 12/20/21 19:30 106 26 120/74 94 High Flow N/C 12.00 12/20/21 19:15 113 30 96/54 94 High Flow N/C 12.00 12/20/21 19:06 38.9 12/20/21 19:00 114 12/20/21 19:00 114 25 131/77 95 High Flow N/C 12.00 12/20/21 19:00 114 12/20/21 18:55 High Flow N/C 12.00 12/20/21 18:32 114 131/76 12/20/21 18:14 NIV Bilevel 60.00 12/20/21 18:00 112 27 126/74 92 High Flow N/C 12.00 12/20/21 17:00 102 26 106/64 94 High Flow N/C 12.00 I & O 12/21/21 07:00 Intake Total 4550 ml Output Total 1875 ml Balance 2675 ml Capillary Refill : Less Than 3 Seconds General Appearance: Chronically ill, Obese HEENT: PERRL/EOMI, Normal ENT Inspection, Pharynx Normal Neck: Full Range of Motion, Normal Inspection, Non Tender, Supple, Other (right ij central line) Respiratory: Chest Non Tender, No Respiratory Distress, Other (appears to have shallower breathing) Cardiovascular: No JVD, No Murmur, Tachycardia Gastrointestinal: non tender, soft, hernia Extremity: Normal Inspection, Pedal Edema, Swelling Neurologic/Psychiatric: Alert, Motor Weakness Skin: Normal Color, Warm/Dry Lymphatic: No Adenopathy Results Lab Laboratory Tests 12/20/21 17:17: Lactic Acid Level 6.44*H 12/20/21 18:35: Glucometer 90 12/20/21 20:15: Sodium Level 143, Potassium Level 4.3, Chloride Level 109H, Carbon Dioxide Level 16L, Anion Gap 18H, Blood Urea Nitrogen 38H, Creatinine 1.71H, Estimat Glomer ular Filtration Rate 43, BUN/Creatinine Ratio 22, Glucose Level 101, Calcium Level 8.2L 12/21/21 00:39: Glucometer 101 12/21/21 05:25: White Blood Count 0.6*L, Red Blood Count 2.80L, Hemoglobin 9.2L, Hematocrit 27L, Mean Corpuscular Volume 98, Mean Corpuscular Hemoglobin 33, Mean Corpuscular Hemoglobin Concent 34, Red Cell Distribution Width 16.8H, Platelet Count 76L, Mean Platelet Volume 9.4, Immature Granulocyte % (Auto) 8, Neutrophils (%) (Auto) 36L, Lymphocytes (%) (Auto) 43, Monocytes (%) (Auto) 13H, Eosinophils (%) (Auto) 0, Basophils (%) (Auto) 0, Neutrophils # (Auto) 0.2L, Lymphocytes # (Auto) 0.3L, Monocytes # (Auto) 0.1, Eosinophils # (Auto) 0.0, Basophils # (Auto) 0.0, Immature Granulocyte # (Auto) 0.1, Sodium Level 145, Potassium Level 4.1, Chloride Level 111H, Carbon Dioxide Level 17L, Anion Gap 17H, Blood Urea Nitrogen 36H, Creatinine 1.72H, Estimat Glomerular Filtration Rate 43, BUN/Creatinine Ratio 21, Glucose Level 107H, Calcium Level 8.1L, Corrected Calcium 9.1, Phosphorus Level 5.4H, Total Bilirubin 1.5H, Aspartate Amino Transf (AST/SGOT) 23, Alanine Aminotransferase (ALT/SGPT) 29, Alkaline Phosphatase 53, Total Protein 5.3L, Albumin 2.7L 12/21/21 06:29: Lactic Acid Level 3.00*H 12/21/21 09:00: Lactic Acid Level 2.92*H Microbiology 12/20/21 Urine Culture - Final, Complete NO GROWTH 12/20/21 MRSA Screen - Final, Complete MRSA not isolated 12/19/21 Blood Culture - Preliminary, Resulted No growth 12/19/21 C. difficile GDH Antigen & Toxins - Final, Complete Assessment/Plan Assessment/Plan Assessment/Plan Sepsis Hypotension Leg swelling Glioblastoma Not having any abdominal pain and x ray last night constipation. Patient family discussing comfort care. No surgical issue. Will sign off, call if needed.. ROMAN BROWER DO December 21, 2021 17:04
--- NOTE | 2021-12-21 20:20 | Progress Note - Hospitalist ---
Subjective HPI/CC On Admission Date Seen by Provider: December 21, 2021 Time Seen by Provider: 09:25 Valentin Talbert is a 66 year old male with PMH glioblastoma s/p surgery, radiation, and chemotherapy, who presented with pancytopenia. He has not been feeling well for the past week. He has been having weakness which has been more pronounced over that time. His chemotherapy was stopped a couple weeks ago due to his low platelet count. He denies any bleeding. He denies rash. He denies fevers and chills. He denies shortness of breath or cough. He denies chest pain. He denies abdominal pain. He denies diarrhea. He recently completed an antibiotic. Subjective/Events-last exam He is tired and fatigued this morning. He denies pain. He denies shortness of breath. His family is all in the waiting room and were updated. We discussed his poor prognosis and possible transition to comfort care. Focused Exam Lactate Level 12/20/21 17:17: Lactic Acid Level 6.44*H 12/21/21 06:29: Lactic Acid Level 3.00*H 12/21/21 09:00: Lactic Acid Level 2.92*H Objective Exam Vital Signs Vital Signs Date Time Temp Pulse Resp B/P (MAP) Pulse Ox O2 Delivery O2 Flow Rate FiO2 12/21/21 19:39 37.0 12/21/21 18:00 88 21 133/74 94 High Flow N/C 7.00 Capillary Refill : Less Than 3 Seconds General Appearance: No Apparent Distress, Obese Respiratory: No Respiratory Distress, Decreased Breath Sounds Cardiovascular: No Murmur, Tachycardia Gastrointestinal: Normal Bowel Sounds, Non Tender, Soft; No Distended Extremity: Non Tender, Swelling Neurologic/Psychiatric: Alert, Motor Weakness, Other (fatigued) Skin: Warm/Dry, Pallor Results/Procedures Lab Laboratory Tests 12/20/21 20:15 12/21/21 05:25 Patient resulted labs reviewed. Imaging: Reviewed Imaging Report Assessment/Plan Assessment and Plan Assess & Plan/Chief Complaint Septic shock Lactic acidosis Acute kidney injury Neutropenic fever Pseudomonas bacteremia Poor prognosis Goals of care discussion Transferred to ICU overnight TeleICU consulted Blood culture positive for Pseudomonas, awaiting susceptibilities Stop Vancomycin Continue Zosyn Added Levaquin Still requiring Levophed Continue Granix Continue stress dose steroids Discussed comfort measures, family considering Palliative care consulted Pancytopenia Glioblastoma Likely due to chemotherapy Dr. Sanchez following Platelet count now improving Bone marrow biopsy on hold Continue Granix Dysphagia Modified barium swallow on hold Speech following NPO Debility PT/OT HTN Insomnia Leg swelling Obesity Critical Care Critically Ill Patient Diagnosis/Problems Diagnosis/Problems (1) Septic shock Status: Acute (2) Gram-negative bacteremia Status: Acute (3) COURTNEY (acute kidney injury) Status: Acute (4) Lactic acidosis Status: Acute (5) Neutropenic fever Status: Acute (6) Pancytopenia Status: Acute (7) Glioblastoma Status: Acute (8) Leg swelling Status: Acute (9) Dysphagia Status: Acute (10) Cough Status: Acute (11) Debility Status: Acute (12) Poor prognosis Status: Acute (13) Goals of care, counseling/discussion Status: Acute ELVIA KRAMER MD December 21, 2021 20:20
[2021-12-21] MEDS: DexMEDEtomidine 250 ML DRIP 250 ML IV SCH (23:57)
[2021-12-22 05:26] LABS: BASOPHILS % (AUTO) 0 % (0-10); EOSINOPHILS % (AUTO) 0 % (0-10); HEMATOCRIT 23 % (40-54); HEMOGLOBIN 7.6 g/dL (13.3-17.7); MEAN CORPUSCULAR HEMOGLOBIN 33 pg (25-34); MEAN CORPUSCULAR HGB CONC 34 g/dL (32-36); MEAN CORPUSCULAR VOLUME 97 fL (80-99); MONOCYTES # (AUTO) 0.1 10^3/uL (0.0-1.0); NEUTROPHILS # (AUTO) 0.2 10^3/uL (1.8-7.8)
[2021-12-22 05:28] LABS: LYMPHOCYTES # (AUTO) 0.2 10^3/uL (1.0-4.0); LYMPHOCYTES % (AUTO) 33 % (12-44); MEAN PLATELET VOLUME 10.1 fL (9.0-12.2); MONOCYTES % (AUTO) 13 % (0-12); NEUTROPHILS % (AUTO) 39 % (42-75); PLATELET COUNT 56 10^3/uL (130-400)
[2021-12-22 05:40] LABS: ALBUMIN 2.3 GM/DL (3.2-4.5); POTASSIUM 3.3 MMOL/L (3.6-5.0)
[2021-12-22 05:41] LABS: WHITE BLOOD COUNT 0.5 10^3/uL (4.3-11.0)
[2021-12-22 05:42] LABS: CALCIUM 8.1 MG/DL (8.5-10.1)
--- NOTE | 2021-12-22 05:42 | Progress Note - Hospitalist ---
Subjective HPI/CC On Admission Date Seen by Provider: December 22, 2021 Time Seen by Provider: 09:00 Valentin Talbert is a 66 year old male with PMH glioblastoma s/p surgery, radiation, and chemotherapy, who presented with pancytopenia. He has not been feeling well for the past week. He has been having weakness which has been more pronounced over that time. His chemotherapy was stopped a couple weeks ago due to his low platelet count. He denies any bleeding. He denies rash. He denies fevers and chills. He denies shortness of breath or cough. He denies chest pain. He denies abdominal pain. He denies diarrhea. He recently completed an antibiotic. Subjective/Events-last exam Pt is doing a lot better Pseudomonas bacteremia reviewed to sensitivities and discontinued Zosyn since sensitive to Levaquin Transferring to 4th floor Overall prognosis is poor DNR maintained Having some dysphasia so speech will evaluate him for aspiration risk Review of Systems General: Fatigue, Malaise Pulmonary: Dyspnea Focused Exam Lactate Level 12/20/21 17:17: Lactic Acid Level 6.44*H 12/21/21 06:29: Lactic Acid Level 3.00*H 12/21/21 09:00: Lactic Acid Level 2.92*H Objective Exam Vital Signs Vital Signs Date Time Temp Pulse Resp B/P (MAP) Pulse Ox O2 Delivery O2 Flow Rate FiO2 12/23/21 03:57 35.6 64 20 133/68 (89) 96 High Flow N/C 9.00 Capillary Refill : Less Than 3 Seconds General Appearance: Anxious, Chronically ill, Obese Respiratory: No Accessory Muscle Use, No Respiratory Distress, Decreased Breath Sounds Cardiovascular: Regular Rate, Rhythm Neurologic/Psychiatric: Alert, Oriented x3 Results/Procedures Lab Laboratory Tests 12/23/21 04:24 Patient resulted labs reviewed. Imaging: Reviewed Imaging Report Assessment/Plan Assessment and Plan Assess & Plan/Chief Complaint Septic shock Lactic acidosis Acute kidney injury Neutropenic fever Pseudomonas bacteremia reviewed sensitivities DC'd Zosyn maintained Levaquin Poor prognosis Goals of care discussion Dr. Sanchez discussed with patient and family and will take it day by day and no comfort care at this time Pancytopenia Glioblastoma Likely due to chemotherapy Dr. Sanchez following Platelet count now improving Bone marrow biopsy on hold Continue Granix Dysphagia Change diet to regular with nectar thick liquids Debility PT/OT HTN Insomnia Leg swelling Obesity Plan: Transfer to fourth floor Very poor prognosis Critical Care Critically Ill Patient MICHI SHEFFIELD DO December 22, 2021 05:42
[2021-12-22 05:43] LABS: TOTAL PROTEIN 4.9 GM/DL (6.4-8.2)
[2021-12-22 05:45] LABS: BILIRUBIN,TOTAL 1.2 MG/DL (0.1-1.0)
[2021-12-22 05:46] LABS: CREATININE SERUM 1.42 MG/DL (0.60-1.30)
[2021-12-22] MEDS: HYDROCORTISONE 100 MG/2 ML (Solu-CORTEF) VIAL IV SCH ×4 (06:12→20:57)
[2021-12-22] MEDS: MAGNESIUM 1 GM/100 ML IVPB 100 ML IV SCH (06:13)
[2021-12-22] MEDS: inSUlin ASPART (NovoLOG) 1 UNIT/0.01 ML (CHARGE PER UNIT) SC SCH ×3 (06:13→17:57)
[2021-12-22] MEDS: KCL 20 MEQ TAB (K-DUR) PO SCH (06:13)
[2021-12-22] MEDS: POTASSIUM CL 10MEQ/50ML IVPB 50 ML IV SCH ×4 (06:13→07:08)
[2021-12-22] MEDS: PIPERACILLIN SODIUM/TAZOBACTAM 4.5 GM in NS (IVPB) 100 ML IV SCH (08:15)
[2021-12-22] MEDS: LEVOFLOXACIN 750 MG/D5W 150 ML (PRE-MIX) IV SCH (08:15)
[2021-12-22] MEDS: TBO-FILGRASTIM 480 MCG/0.8 ML (GRANIX) SQ SCH (08:37)
[2021-12-22] MEDS: TAMSULOSIN 0.4 MG (FLOMAX) CAP PO SCH (09:01)
[2021-12-22] MEDS: fluCOnazole (DIFLUCAN) 100 MG TAB PO SCH (09:01)
[2021-12-22] MEDS: NYSTATIN ORAL SUSP 5 ML UDC PO SCH ×4 (09:01→21:07)
[2021-12-22] MEDS: VALSARTAN 80 MG (DIOVAN) TAB PO SCH (09:01)
[2021-12-22] MEDS: guaiFENesin (MUCINEX) 600 MG TAB PO SCH ×2 (09:01→21:07)
[2021-12-22] MEDS ORDERED: ALTEPLASE 2 MG (CATHFLO) IV ONE (09:15)
--- NOTE | 2021-12-22 09:45 | Tele-ICU Progress Note ---
Subjective Date Seen by a Provider: December 22, 2021 Time Seen by a Provider: 09:44 Subjective/Events-last exam (Tele-ICU Physician , Progress Note ) Available chart/ vitals / labs / Images reviewed Video assessment done using teleICU camera, rest of exam as per RN Discussed with RN , EXAM PER RN Events overnight : Afebrile FiO2 - 7L I/O = ++ Drips: Pressors: levo 0.03 Consultants: onc. serrato Hospital course: (12/09) 66 Y/O Male admitted to the floor with Pancytopenia secondary to Chemotherapy for Glioblastoma. (12/20) To ICU for sudden onset of Hypotension after spiking temperature of (38.8) last night aroud (23:00). 12/21 , levo , blood cx from 12/19- + PSA - levofloxacin added 12/21 12/22- OFF LEVO , + SOB --> bipap A/P Shock - on steroids - STRESS DOSE STEROIDS started 12/20 SC 50 q 6 --> to decrease 12/22 to q 8 - volume resuscitation - OFF pressors Acute resp failure 12/22 - placed on BIPAP - possible VO - monitor , check cxr Glioblastoma s/p surgery, radiation, and chemotherapy - CTH done - no change - Keppra - decrease stress dose steroids to q8 - 12/22 - not somnolent any more , ritu seems agitated/anxiious with SOB - precedex prn , will avoid benzo pancytopenia - due to above ? , follow by onc - s/p 1 unit platelets Infection - ? source - PCT 23 / immunocompromized with chemo / steroids - Zosyn / vanco started 12/20- blood cx from 12/19- + PSA - levofloxacin added 12/21 (repeated culture were not done 12/21 - discussion of haspice - but now is AAO ) COURTNEY - slightly better -hypernatremia Dysphasia - spech evel Lines : R IJ 12/20 (Central Line Necessity Reviewed) Potts: + OG: Nutrition: Analgesia: Anxiety/ delirium VTE Prophylaxis: SCD Stress Ulcer Prophylaxis: po Plans in collaboration with bedside consultants and IM MDs. Discussed with RN to reach out if any questions or concerns A total of 33 minutes of critical care time was devoted to this patient today, required to treat and/or prevent further deterioration of critical care condition ( as above ) . Sepsis Event Evaluation Height, Weight, BMI Height: '" Weight: lbs. oz. kg; 42.57 BMI Method: Focused Exam Lactate Level 12/20/21 17:17: Lactic Acid Level 6.44*H 12/21/21 06:29: Lactic Acid Level 3.00*H 12/21/21 09:00: Lactic Acid Level 2.92*H Exam Exam Patient acknowledged, consented, and participated in this virtual visit which was conducted using real time audio/video Vital Signs Date Time Temp Pulse Resp B/P (MAP) Pulse Ox O2 Delivery O2 Flow Rate FiO2 12/22/21 09:00 70 27 122/76 94 High Flow N/C 6.00 12/22/21 08:03 95 High Flow N/C 6.00 12/22/21 08:00 70 30 113/78 94 High Flow N/C 6.00 12/22/21 07:49 High Flow N/C 6.00 12/22/21 07:30 36.4 12/22/21 07:00 70 12/22/21 07:00 70 27 100/67 94 NIV CPAP 6.00 12/22/21 06:00 69 26 101/67 96 NIV CPAP 6.00 12/22/21 05:00 70 28 108/67 96 NIV CPAP 6.00 12/22/21 04:00 High Flow N/C 7.00 12/22/21 04:00 74 29 109/60 97 NIV CPAP 6.00 12/22/21 03:53 36.5 12/22/21 03:00 73 32 102/64 High Flow N/C 7.00 12/22/21 02:00 71 106/66 95 High Flow N/C 7.00 12/22/21 01:00 67 107/63 96 High Flow N/C 7.00 12/22/21 01:00 67 12/22/21 00:45 68 106/63 97 12/22/21 00:30 68 103/62 97 12/22/21 00:15 69 107/64 99 12/22/21 00:00 72 108/64 94 High Flow N/C 7.00 12/22/21 00:00 High Flow N/C 7.00 12/21/21 23:57 71 140/84 12/21/21 23:45 86 26 140/84 96 12/21/21 23:38 36.8 12/21/21 23:30 79 22 151/83 95 12/21/21 23:15 80 21 147/82 95 12/21/21 23:00 81 145/85 96 High Flow N/C 7.00 12/21/21 22:45 80 35 148/84 96 12/21/21 22:30 80 33 125/93 97 12/21/21 22:15 87 26 125/88 90 12/21/21 22:00 78 25 152/88 High Flow N/C 7.00 12/21/21 21:45 77 21 143/85 12/21/21 21:30 77 22 143/83 93 12/21/21 21:15 81 22 142/83 98 12/21/21 21:00 85 20 146/81 High Flow N/C 7.00 12/21/21 20:45 87 22 145/81 12/21/21 20:30 84 22 144/84 93 12/21/21 20:15 89 22 141/81 92 12/21/21 20:00 High Flow N/C 7.00 12/21/21 20:00 84 21 140/81 96 High Flow N/C 7.00 12/21/21 19:45 85 19 137/79 97 12/21/21 19:39 37.0 12/21/21 19:30 86 22 141/83 97 12/21/21 19:15 84 140/78 98 12/21/21 19:00 89 28 137/91 96 High Flow N/C 7.00 12/21/21 19:00 89 12/21/21 18:00 88 21 133/74 94 High Flow N/C 7.00 12/21/21 17:17 79 107/69 12/21/21 17:00 76 24 131/72 96 High Flow N/C 7.00 12/21/21 16:38 High Flow N/C 7.00 12/21/21 16:00 36.6 12/21/21 16:00 89 11 124/89 92 High Flow N/C 7.00 12/21/21 15:00 87 23 123/76 96 High Flow N/C 7.00 12/21/21 14:00 90 16 127/76 95 High Flow N/C 7.00 12/21/21 13:00 85 12/21/21 13:00 86 24 127/70 94 High Flow N/C 7.00 12/21/21 12:16 37.6 12/21/21 12:05 High Flow N/C 7.00 12/21/21 12:00 89 25 138/82 95 High Flow N/C 7.00 12/21/21 11:00 84 22 133/75 89 High Flow N/C 7.00 12/21/21 10:00 82 23 117/70 91 High Flow N/C 7.00 12/21/21 09:59 82 111/77 I & O 12/22/21 07:00 Intake Total 1150 ml Output Total 2450 ml Balance -1300 ml Height & Weight Height: '" Weight: lbs. oz. kg; 42.57 BMI Method: General Appearance: No Apparent Distress, Obese HEENT: PERRL/EOMI, Normal ENT Inspection, Pharynx Normal Neck: Full Range of Motion, Normal Inspection, Non Tender, Supple, Other (right ij central line) Respiratory: No Respiratory Distress, Decreased Breath Sounds Cardiovascular: No Murmur, Tachycardia Capillary Refill: Less Than 3 Seconds Gastrointestinal: non tender, soft, hernia Extremity: Non Tender, Swelling Neurologic/Psychiatric: Alert, Motor Weakness, Other (fatigued) Skin: Warm/Dry, Pallor Lymphatic: No Adenopathy Results Lab Laboratory Tests 12/20/21 20:15 12/21/21 05:25 12/22/21 05:15 Assessment/Plan Assessment/Plan ` SHERRY LAY MD December 22, 2021 09:45
--- NOTE | 2021-12-22 10:09 | Diagnostic Imaging Report ---
INDICATION: Dyspnea. Single AP view of chest is obtained with comparison made study of 12/20/2021 FINDINGS: There is suboptimal inspiration. There is mild cardiomegaly. There is no evidence of pneumothorax or lobar consolidation. There has been mild increase in basilar atelectasis and/or pneumonitis. Right jugular central venous catheter remains in place with previous surgery in the left shoulder. IMPRESSION: Mild increase in basilar atelectasis and/or pneumonitis without other definite acute abnormality seen on limited study. Dictated by: Dictated on workstation # [id number]
[2021-12-22] MEDS: 1/2 NS IV SOLUTION 1,000 ML IV SCH ×2 (10:10→23:54)
[2021-12-22] MEDS ORDERED: WATER (STERILE) FOR INJECTION 10 ML ONE (10:51)
[2021-12-22] MEDS ORDERED: TROUGH ORDER-PHARMACY XX ONE (11:00)
--- NOTE | 2021-12-22 13:51 | ST Dysphagia Evaluation ---
Speech Evaluation-General Medical Diagnosis Panocytopenia Onset Date: December 09, 2021 Therapy Diagnosis Therapy Diagnosis: Oropharyngeal dysphagia Precautions Precautions: Aspiration Precautions/Isolations: Aspiration Referral Reason for Referral: Evaluation/Treatment Medical History Panocytopenia Current History The patient is a 66 year-old male with a past medical history of glioblastoma and hypertension, who was admitted to [facility] due to pancytopenia. Reviewed History: Yes Social History Current Living Status: Spouse Speech PLF/Current-Dysphagia Prior Level of Function Pt was NPO in ICU unit. Prior diet recommendation of regular solids and nectar thick liquid. Pt seen yesterday (12/21/21) and demonstrated variable alertness. Pt was too fatigued to trial PO solids or liquids, but was willing to trial ice chips. Pt tolerated ice chips with no overt s/s aspiration. Subjective Pt sitting upright in bed. Pt's and family joined during latter half of the session. Pt cooperative, pleasant, and willing to trial solids/liquids for bedside swallow evaluation. Cognitive Status Patient Orientation: Person, Place, Eyes Open Oral Motor Skills Dentition: Natural Current Food Consistancy: Regular, [place] Liquids Ability to Follow Directions: Excellent Oral Expression Ability: No Impairment Voice Voice Phonatory-Based Quality: Harsh Voice Pitch: Normal Voice Loudness: Normal Face Facial Symmetry: Symmetrical Oral-Facial Assessment Oral-Facial Dentition: Normal Labial Seal Description: Normal Smile: Normal Puff Cheeks: Normal Lingual Protrusion: Normal Lingual ROM: Normal Lingual Strength: Normal Gag Reflex Response: Normal Pharynx Velopharyngeal Move.: Normal Volitional Dry Swallow: Yes Voluntary Cough: Yes Can Clear Throat Volitionally: Yes Productive Cough: Yes Productive Throat Clear: Yes Dysphagia Evaluation Consistencies Presented: Regular, Thin Liquid, Mechanical Soft, [place] Thick Liquid, Ground, Pureed Pt demonstrated appropriate and timely bolus mastication and formation. Swallow timing timely. Appropriate/timely laryngeal elevation. Pt demonstrated frequent throat clearing and coughing with thin liquids following swallows which may indicate aspiration and poor airway protection. Pharyngeal Phase: Clears Throat Pt was frequently coughing prior to PO trials and reported being given expectorant to clear mucus in airway. SUPERINTENDENT COMMISSARY frequently checked-in with pt regarding cough secondary to trials or to clear mucus. During PO trials, Pt demonstrated immediate and delayed coughs following thin liquid trials. The s/s of suspected aspiration with thin liquids was consistent. No overt s/s aspiration observed with nectar-thick liquid via cup/spoon, puree, or solid consistencies. Funct. Velo/Pharyngeal Symptom: Clears Throat, Cough After Swallow wet voice quality not observed. Pt demonstrates strong reflexive and volitional cough and throat clearing Dietary Recommendations: Regular Liquid Recommendations: [place] Consistancy ice chips were judged to be appropriate for hydration at bedside and no s/s aspiration observed with small volumes of ice chips via spoon. - Regular consistency diet with mildly thick (NECTAR-THICK) liquids, as tolerate d. - Fully upright and alert for P.O. intake. - Small, single bites and sips, only. - Remain upright for 30 minutes following P.O. intake. - Monitor for s/s of suspected aspiration with P.O. intake. If demonstrated, contact speech pathology. - Given recent decline and improvement in status, a modified barium swallow evaluation recommended to further investigate etiology and plan treatment. Swallowing Precautions: Alternate Liquids/Solids, Decreased Rate of Oral Intake, Oral Supervision Staff, Oral Supervision Caregiver, Small Bites and Sips, Sitting Upright 90 Degrees, Sitting 90 Degrees 30 Post Intake, Turn Head Left Pt educated on head turn to weak side to aid swallow and protection of airway. Pt expressed not tolerating nectar-thick liquids due to taste/consistency. Pt hopes to advance to thin liquids safely. Pt educated on safe swallow precautions/strategies. The results and recommendations were discussed with Pt, Pt's family, and RN. All verbalized understanding. Dysphagia Evaluation Summary Pt demonstrated pharyngeal dysphagia characterized by overt s/s aspiration during and following swallow of thin liquids. No overt s/s aspiration observed with solid trials. A modified barium swallow study is still recommended at this time due to the Pt's regression and recent improvement in alertness, mobility, and participation in PO trials. Barriers to Learning alertness Speech Short Term Goals Short Term Goals Short Term Goals 1. The patient and staff will follow safe swallowing protocols with 90% accuracy, independently. Speech Sports Internship Goals Prison Goals 1. The patient will demonstrate tolerance of the least restricted diet consistency without s/s of suspected aspiration. Speech-Plan Patient/Family Goals Patient/Family Goals: Pt and family hopes to advance to thin liquids safely for adequate hydration Treatment Plan Speech Therapy Treatment Plan: Continue Plan of Care Pt's current diet recommendation includes regular solids with nectar thick liquids for adequate hydration/nutrition and safe and efficient swallowing. Ice chips were judged to be appropriate given no overt s/s aspiration with ice chips presented 1 at a time via spoon Treatment Duration: Dec 29, 2021 Frequency: 2 times per week Estimated Hrs Per Day: .25 hour per day Rehab Potential: Fair Barriers to Learning: alertness Pt/Family Agrees to Plan: Yes Safety Risks/Education Teaching Recipient: Patient, Family Teaching Methods: Demonstration, Discussion Response to Teaching: Verbalize Understanding Education Topics Provided: safe swallow precautions/strategies, room safety, ST results/goals Time Speech Therapy Time In: 13:00 Speech Therapy Time Out: 13:40 Total Billed Time: 40 Billed Treatment Time 1SHANEL SEAN ST December 22, 2021 13:51
--- NOTE | 2021-12-22 14:35 | Physical Therapy Evaluation ---
PT Evaluation-General Medical Diagnosis Admission Date December 09, 2021 at 12:59 Medical Diagnosis: Panocytopenia Onset Date: December 09, 2021 Therapy Diagnosis Therapy Diagnosis: Gait Deficit, strength deficit Precautions Precautions/Isolations: Aspiration, Fall Prevention Weight Bear Status Right Lower Extremity: Right Full Weight Bearing Left Lower Extremity: Left Full Weight Bearing Patient is on no precautions for his left LE, unable to bear weight. Referral Physician: Shankar Reason for Referral: Evaluation/Treatment Medical History Reviewed History: Yes Social History Home: Single Level Current Living Status: Spouse Entry Into Home: Ramp PT Steps Into Home: 3 Prior Prior Level of Function SCALE: Activities may be completed with or without assistive devices. 0-Bxwbpgsfds-qoeeekr completes the activity by him/herself with no assistance from a helper. 5-Set-up or Clean-up Assistance-helper sets up or cleans up; patient completes activity. [place] assists only prior to or following the activity. 4-Supervision or Touching Assistance-helper provides verbal cues and/or touchi ng/steadying and/or contact guard assistance as patient completes activity. Assistance may be provided throughout the activity or intermittently. 3-Partial/Moderate Assistance-helper does LESS THAN HALF the effort. [place] lifts, holds or supports trunk or limbs, but provides less than half the effort. 2-Substantial/Maximal Assistance-helper does MORE THAN HALF the effort. [place] lifts or holds trunk or limbs and provides more than half the effort. 0-Qemzehpye-yrojss does ALL the effort. Patient does none of the effort to complete the activity. Or, the assistance of 2 or more helpers is required for the patient to complete the activity. If activity was not attempted, code reason: 7-Patient Refused. 9-Not Applicable-not attempted and the patient did not perform the activity before the current illness, exacerbation or injury. 10-Not Attempted due to Environmental Limitations-(lack of equipment, weather restraints, etc.). 88-Not Attempted due to Medical Conditions or Safety Concerns. Bed Mobility: 6 Transfers (B,C,W/C): 6 Gait: 6 Indoor Mobility (Ambulation): Needed Some Help Stairs: Not Applicalbe Prior Devices Use: Manual wheelchair, Walker PT Evaluation-Current Subjective Patient lying supine in bed upon PT arrival, agreeable to treatment. Patient rates pain at 0/10 currently. in the room. Objective Patient Orientation: Person, Place, Time, Situation ROM/Strength ROM Lower Extremities WFLs bilaterally; left PROM only Strength Lower Extremities Right LE 3/5 all planes; left 2/5 all planes Integumentary/Posture Posture Patient presents with rounded shoulders, forward head and trunk posture and overall a slouched position in sitting. Similar upper body posture in standing, however he is unable to bear much, if any weight in the left LE and unable to obtain right TKE. Neuromuscular (Tone, Coordination, Reflexes) Significant decreased in tone in left LE and lacks coordination. Sensory Vision: Wears Glasses Hearing: Functional Hand Dominance: Right Sensation Right Lower Extremit: Intact Sensation Left Lower Extremity: Intact Transfers Roll Left to Right (QC): 2 Sit to Lying (QC): 2 Lying to Sitting/Side of Bed(Q: 2 Sit to Stand (QC): 2 Chair/Xau-td-Pvvhr Xfer(QC): 1 Toilet Transfer (QC): 1 Gait Does the Patient Walk?: No and Walking Goal IS indicated Mode of Locomotion: Both Anticipated Mode of Locomotion: Both Gait Assistive Device: Walker Vitor Balance Sitting Static: Fair Sitting Dynamic: Fair Standing Static: Poor Standing Dynamic: Poor Assessment/Needs Patient demonstrates significant decline in function, strength, gait, balance and overall mobility since his transfer to ICU. Demonstrates fair potential to return to level of function prior to ICU transfer, however guarded at this time on return to PLOF. Patient performs all observed bed mobility with max A and transfers with Total A. Patient transferred to edge of bed, requires total Assistance for sit to stand and SPT to the BSC. Patient requires max A for sit to stand from BS, with total dependence from DIRECTOR TEEN POST for cleaning. Patient sat down on the BSC again due to fatigue, then required max A for sit to stand and max A for SPT to the chair. Patient in chair post treatment with all needs met, nursing notified, call light in reach, in the room. PT anticipates return to room ~ 3:15 to return patient to bed. Rehab Potential: Guarded Equipment Needs Unsure at this time. PT Short Term Goals Short Term Goals Time Frame: Jan 07, 2022 Roll Left & Right: 3 Sit to lyin Lying to sitting on side of be: 3 Sit to stand: 3 Chair/pfm-sv-ttthu transfer: 3 Toilet transfer: 3 Walk 10 feet: 2 PT Dye Automation Operator Goals [facility] Goals PT Dye Automation Operator Goals Time Frame: December 18, 2021 Roll Left & Right (QC): 5 Sit to Lying (QC): 5 Lying-Sitting on Side/Bed(QC): 5 Sit to Stand (QC): 4 Chair/Jsv-ag-Jjiww Xfer(QC): 4 Toilet Transfer (QC): 4 Does the Patient Walk: Yes Walk 10 feet (QC): 4 Walk 50ft with 2 Turns (QC): 3 Walk 150 ft (QC): 3 1 Step (curb) (QC): 3 4 Steps (QC): 3 PT Plan Problem List Problem List: Activity Tolerance, Functional Strength, Safety, Balance, Gait, Transfer, Bed Mobility, ROM Treatment/Plan Treatment Plan: Continue Plan of Care Treatment Plan: Bed Mobility, Education, Functional Activity Isidra, Functional Strength, Gait, Safety, Therapeutic Exercise, Transfers Treatment Duration: Jan 28, 2022 Frequency: 6 times per week Estimated Hrs Per Day: .5 hour per day Patient and/or Family Agrees t: Yes Safety Risks/Education Patient Education: Transfer Techniques Teaching Recipient: Patient, Family Teaching Methods: Demonstration, Discussion Response to Teaching: Verbalize Understanding, Return Demonstration Discharge Recommendations Target Placement Post Acute placement recommended. Time/GCodes Time In: 1340 Time Out: 1403 Total Billed Treatment Time: 33 Total Billed Treatment Visit, SOBIA Espino JOHN A PT December 22, 2021 14:34
[2021-12-22 16:00] VITALS: BP 120/71
[2021-12-22 19:30] VITALS: BP 129/74
[2021-12-22] MEDS ORDERED: RT-ALBUTEROL/IPRATROPIUM 3 ML (DUONEB) VIAL INH PRN (20:15)
[2021-12-22] MEDS ORDERED: RT-ALBUTEROL/IPRATROPIUM 3 ML (DUONEB) VIAL INH ONE (20:15)
[2021-12-22] MEDS ORDERED: RT-ALBUTEROL/IPRATROPIUM 3 ML (DUONEB) VIAL ONE (21:05)
[2021-12-22] MEDS ORDERED: RT-ALBUTEROL SULF 2.5 MG/3 ML PRE-MIX VIAL ONE (21:10)
[2021-12-22] MEDS ORDERED: RT-ALBUTEROL SULF 2.5 MG/3 ML PRE-MIX VIAL INH PRN (21:15)
[2021-12-22] MEDS: BENZONATATE 100 MG (TESSALON) CAPSULE PO PRN (22:31)
[2021-12-23] VITALS (7 sets, daily range): BP systolic 118–158; BP diastolic 61–83
[2021-12-23] MEDS: inSUlin ASPART (NovoLOG) 1 UNIT/0.01 ML (CHARGE PER UNIT) SC SCH ×4 (00:59→18:18)
[2021-12-23] MEDS: 1/2 NS IV SOLUTION 1,000 ML IV SCH (03:53)
[2021-12-23 04:32] LABS: EOSINOPHILS % (AUTO) 0 % (0-10); HEMOGLOBIN 7.9 g/dL (13.3-17.7); NEUTROPHILS % (AUTO) 67 % (42-75)
[2021-12-23 04:34] LABS: BASOPHILS % (AUTO) 1 % (0-10); HEMATOCRIT 23 % (40-54); LYMPHOCYTES # (AUTO) 0.3 10^3/uL (1.0-4.0); LYMPHOCYTES % (AUTO) 16 % (12-44); MEAN CORPUSCULAR HEMOGLOBIN 33 pg (25-34); MEAN CORPUSCULAR HGB CONC 34 g/dL (32-36); MEAN CORPUSCULAR VOLUME 98 fL (80-99); MEAN PLATELET VOLUME 11.1 fL (9.0-12.2); MONOCYTES # (AUTO) 0.1 10^3/uL (0.0-1.0); MONOCYTES % (AUTO) 5 % (0-12); NEUTROPHILS # (AUTO) 1.4 10^3/uL (1.8-7.8); PLATELET COUNT 60 10^3/uL (130-400); WHITE BLOOD COUNT 2.1 10^3/uL (4.3-11.0)
[2021-12-23 04:46] LABS: ALBUMIN 2.3 GM/DL (3.2-4.5); POTASSIUM 3.3 MMOL/L (3.6-5.0)
[2021-12-23 04:47] LABS: CALCIUM 8.4 MG/DL (8.5-10.1)
[2021-12-23 04:51] LABS: BILIRUBIN,TOTAL 1.3 MG/DL (0.1-1.0)
[2021-12-23 04:52] LABS: CREATININE SERUM 1.38 MG/DL (0.60-1.30)
--- NOTE | 2021-12-23 06:33 | Progress Note - Hospitalist ---
Subjective HPI/CC On Admission Date Seen by Provider: December 23, 2021 Time Seen by Provider: 11:00 Valentin Talbert is a 66 year old male with PMH glioblastoma s/p surgery, radiation, and chemotherapy, who presented with pancytopenia. He has not been feeling well for the past week. He has been having weakness which has been more pronounced over that time. His chemotherapy was stopped a couple weeks ago due to his low platelet count. He denies any bleeding. He denies rash. He denies fevers and chills. He denies shortness of breath or cough. He denies chest pain. He denies abdominal pain. He denies diarrhea. He recently completed an antibiotic. Subjective/Events-last exam Pt had a lengthy conversation with me and the family after he aspirated breakfast. Thickened liquids recommended. He has been eating some ice chips his son has given him. Talked with daughter unbeknownst to the family about end of life care. It seems her sister is a hospice nurse and she is in denial too. Blood counts are improved along with aggressive medication from oncology. Pt can't even move in bed on his own Definitely not a candidate for in-patient rehab Will have speech therapy evaluate him Constantly asking for water Needs OKP Review of Systems General: Fatigue, Malaise Pulmonary: Dyspnea, Cough Focused Exam Lactate Level 12/21/21 06:29: Lactic Acid Level 3.00*H 12/21/21 09:00: Lactic Acid Level 2.92*H Objective Exam Vital Signs Vital Signs Date Time Temp Pulse Resp B/P (MAP) Pulse Ox O2 Delivery O2 Flow Rate FiO2 12/24/21 04:30 36.8 62 18 135/81 (99) 98 High Flow N/C 5.00 Capillary Refill : Less Than 3 Seconds General Appearance: No Apparent Distress, WD/WN, Chronically ill, Obese Respiratory: No Accessory Muscle Use, No Respiratory Distress, Decreased Breath Sounds Cardiovascular: Regular Rate, Rhythm Neurologic/Psychiatric: Alert, Oriented x3 Results/Procedures Lab Laboratory Tests 12/24/21 04:41 Patient resulted labs reviewed. Imaging: Reviewed Imaging Report Assessment/Plan Assessment and Plan Assess & Plan/Chief Complaint Septic shock Lactic acidosis Acute kidney injury Neutropenic fever Pseudomonas bacteremia reviewed sensitivities DC'd Robi johns Levaquin Poor prognosis Goals of care discussion Dr. Sanchez discussed with patient and family and will take it day by day and no comfort care at this time Pancytopenia Glioblastoma Likely due to chemotherapy Dr. Sanchez following Platelet count now improving Bone marrow biopsy on hold Continue Granix Dysphagia w/aspiration Debility PT/OT HTN Insomnia Leg swelling Obesity Plan: Transfer to fourth floor Very poor prognosis 12/23/2021: Speech therapy sherry Atjosr Needs comfort care hospice Needs halfway Modified barium swallow tomorrow Critical Care Critically Ill Patient MICHI SHEFFIELD DO December 23, 2021 06:33
--- NOTE | 2021-12-23 07:31 | Diagnostic Imaging Report ---
INDICATION: Respiratory failure Frontal chest obtained at 5:43 a.m. and compared to yesterday. There is cardiomegaly. There is no change in right basilar infiltrate. There is no pneumothorax or pleural fluid. Right IJ catheter unchanged. IMPRESSION: Cardiomegaly with unchanged right basilar infiltrate. No new abnormality. Dictated by: Dictated on workstation # [id number]
[2021-12-23] MEDS: HYDROCORTISONE 100 MG/2 ML (Solu-CORTEF) VIAL IV SCH ×4 (09:11→22:28)
[2021-12-23] MEDS: LEVOFLOXACIN 750 MG/D5W 150 ML (PRE-MIX) IV SCH (09:12)
[2021-12-23] MEDS: TAMSULOSIN 0.4 MG (FLOMAX) CAP PO SCH (09:24)
[2021-12-23] MEDS: guaiFENesin (MUCINEX) 600 MG TAB PO SCH ×2 (09:24→21:26)
[2021-12-23] MEDS: fluCOnazole (DIFLUCAN) 100 MG TAB PO SCH (09:24)
[2021-12-23] MEDS: VALSARTAN 80 MG (DIOVAN) TAB PO SCH (09:24)
[2021-12-23] MEDS: NYSTATIN ORAL SUSP 5 ML UDC PO SCH ×4 (09:25→21:26)
[2021-12-23] MEDS: TBO-FILGRASTIM 480 MCG/0.8 ML (GRANIX) SQ SCH (09:27)
--- NOTE | 2021-12-23 09:28 | Physical Therapy Daily Note ---
PT Daily Note-Current Subjective Patient and family report he just choked on some food and has been coughing for the last few minutes. Patient reports no pain at the moment, but reports he feels like he "can't catch my breath." Mental Status Patient Orientation: Person, Place, Time, Situation Attachments: Oxygen, Potts Catheter, IV Transfers SCALE: Activities may be completed with or without assistive devices. 2-Pnbtogypsi-ejeykue completes the activity by him/herself with no assistance from a helper. 5-Set-up or Clean-up Assistance-helper sets up or cleans up; patient completes activity. [place] assists only prior to or following the activity. 4-Supervision or Touching Assistance-helper provides verbal cues and/or touching/steadying and/or contact guard assistance as patient completes activity. Assistance may be provided throughout the activity or intermittently. 3-Partial/Moderate Assistance-helper does LESS THAN HALF the effort. [place] lifts, holds or supports trunk or limbs, but provides less than half the effort. 2-Substantial/Maximal Assistance-helper does MORE THAN HALF the effort. [place] lifts or holds trunk or limbs and provides more than half the effort. 9-Vjosmpmkk-wbfiub does ALL the effort. Patient does none of the effort to complete the activity. Or, the assistance of 2 or more helpers is required for the patient to complete the activity. If activity was not attempted, code reason: 7-Patient Refused. 9-Not Applicable-not attempted and the patient did not perform the activity before the current illness, exacerbation or injury. 10-Not Attempted due to Environmental Limitations-(lack of equipment, weather restraints, etc.). 88-Not Attempted due to Medical Conditions or Safety Concerns. Roll Left & Right (QC): 2 Sit to Lying (QC): 2 Lying to Sitting/Side of Bed(Q: 2 Sit to Stand (QC): 2 Chair/Kib-we-Gacze Xfer(QC): 2 Toilet Transfer (QC): 2 Weight Bearing Right Lower Extremity: Right Full Weight Bearing Left Lower Extremity: Left Full Weight Bearing Patient is on no precautions for his left LE, unable to bear weight. Gait Training Does the Patient Walk?: No and Walking Goal IS indicated Gait Assistive Device: Walker Vitor Exercises Supine Ex: Ankle pumps, Quad Set, Glut sets Supine Reps: 20 Assessment Current Status: Poor Progress Patient demonstrates significant fatigue most likely due to recent coughing with his reports of not being able to catch his breath. Patient performs all observed bed mobility and transfers with max A. Patient transferred to edge of bed, requires max Assistance for sit to stand and SPT to the BSC. Attempted to stand with the vitor walker, however patient unable to stand fully erect and demonstrates a hip flexed, knees flexed, forward trunk posture. Patient was sat on the bed. Patient then required max A for sit to stand and max A for SPT to the chair. Patient in chair post treatment with all needs met, nursing notified, call light in reach, in the room. PT Short Term Goals Short Term Goals Time Frame: Jan 07, 2022 Roll Left & Right: 3 Sit to lyin Lying to sitting on side of be: 3 Sit to stand: 3 Chair/pjw-io-rpjfx transfer: 3 Toilet transfer: 3 Walk 10 feet: 2 PT Supervisor Whipped Topping Goals Supervisor Whipped Topping Goals PT Supervisor Whipped Topping Goals Time Frame: December 18, 2021 Roll Left & Right (QC): 5 Sit to Lying (QC): 5 Lying-Sitting on Side/Bed(QC): 5 Sit to Stand (QC): 4 Chair/Dte-nj-Cujhv Xfer(QC): 4 Toilet Transfer (QC): 4 Does the Patient Walk: Yes Walk 10 feet (QC): 4 Walk 50ft with 2 Turns (QC): 3 Walk 150 ft (QC): 3 1 Step (curb) (QC): 3 4 Steps (QC): 3 PT Plan Treatment/Plan Treatment Plan: Continue Plan of Care Treatment Plan: Bed Mobility, Education, Functional Activity Isidra, Functional Strength, Gait, Safety, Therapeutic Exercise, Transfers Treatment Duration: Jan 28, 2022 Frequency: 6 times per week Estimated Hrs Per Day: .5 hour per day Patient and/or Family Agrees t: Yes Safety Risks/Education Patient Education: Transfer Techniques Teaching Recipient: Patient, Family Teaching Methods: Demonstration, Discussion Response to Teaching: Reinforcement Needed Time/GCodes Time In: 835 Time Out: 907 Total Billed Treatment Time: 32 Total Billed Treatment Visit, Gait, ONEYDA Fallon PT December 23, 2021 09:28
[2021-12-23] MEDS ORDERED: LORazepam INJ 2 MG/ML (ATIVAN) VIAL IVP PRN (13:45)
--- NOTE | 2021-12-23 14:01 | Speech Therapy Daily Note ---
Speech Daily Progress Note Subjective Time Seen by Provider: 12:45 Pt's family is present. RN indicates pt is coughing and choking a lot. Family states he ate some cantaloupe this AM and got choked on it. Objective NTL presented via spoon x3 and side of cup x3. Cough observed for 3/6 trials. It is unknown if cough was from liquids as pt states he is coughing like this all of the time. Clear vocal quality observed. Swallow twice attempted, but pt still coughed. Upon palpatation, pt appears with slight delayed initiation of swallow. Puree (applesauce) given x5 with no cough x1. Pt on 5 L of oxygen at this time. Education provided regarding aspiration risk and safe swallow. VIBRATOR EQUIPMENT TESTER recommends NPO at this time until modified barium swallow study can be completed. Treatment Plan Continue Plan of Care Speech Short Term Goals Short Term Goals Short Term Goals 1. The patient and staff will follow safe swallowing protocols with 90% accuracy, independently. Speech Penitentiary Goals [facility]itentiary Goals 1. The patient will demonstrate tolerance of the least restricted diet consistency without s/s of suspected aspiration. Speech-Plan Treatment Plan Speech Therapy Treatment Plan: Continue Plan of Care Treatment Duration: Dec 29, 2021 Frequency: 2 times per week Estimated Hrs Per Day: .25 hour per day Rehab Potential: Guarded Time Speech Therapy Time In: 12:45 Speech Therapy Time Out: 13:10 Billed Treatment Time 1, DYST 25 mins LASHON WESTON December 23, 2021 14:01
[2021-12-24] MEDS: 1/2 NS IV SOLUTION 1,000 ML IV SCH ×2 (00:06→14:56)
[2021-12-24] MEDS: inSUlin ASPART (NovoLOG) 1 UNIT/0.01 ML (CHARGE PER UNIT) SC SCH ×3 (00:08→13:36)
[2021-12-24 04:30] VITALS: BP 135/81
[2021-12-24 04:48] LABS: BASOPHILS # (AUTO) 0.1 10^3/uL (0.0-0.1); BASOPHILS % (AUTO) 1 % (0-10); EOSINOPHILS % (AUTO) 0 % (0-10); HEMATOCRIT 24 % (40-54); HEMOGLOBIN 8.1 g/dL (13.3-17.7); MEAN CORPUSCULAR HGB CONC 34 g/dL (32-36); MEAN PLATELET VOLUME 11.6 fL (9.0-12.2)
[2021-12-24 04:50] LABS: LYMPHOCYTES # (AUTO) 0.4 10^3/uL (1.0-4.0); LYMPHOCYTES % (AUTO) 5 % (12-44); MEAN CORPUSCULAR HEMOGLOBIN 33 pg (25-34); MEAN CORPUSCULAR VOLUME 97 fL (80-99); MONOCYTES # (AUTO) 0.3 10^3/uL (0.0-1.0); MONOCYTES % (AUTO) 5 % (0-12); NEUTROPHILS # (AUTO) 5.4 10^3/uL (1.8-7.8); NEUTROPHILS % (AUTO) 76 % (42-75); PLATELET COUNT 71 10^3/uL (130-400); WHITE BLOOD COUNT 7.1 10^3/uL (4.3-11.0)
[2021-12-24 04:59] LABS: ALBUMIN 2.3 GM/DL (3.2-4.5)
[2021-12-24 05:01] LABS: CALCIUM 8.4 MG/DL (8.5-10.1)
[2021-12-24 05:02] LABS: TOTAL PROTEIN 4.9 GM/DL (6.4-8.2)
[2021-12-24 05:06] LABS: CREATININE SERUM 1.09 MG/DL (0.60-1.30)
--- NOTE | 2021-12-24 06:05 | Progress Note - Hospitalist ---
Subjective HPI/CC On Admission Date Seen by Provider: December 24, 2021 Time Seen by Provider: 10:00 Valentin Talbert is a 66 year old male with PMH glioblastoma s/p surgery, radiation, and chemotherapy, who presented with pancytopenia. He has not been feeling well for the past week. He has been having weakness which has been more pronounced over that time. His chemotherapy was stopped a couple weeks ago due to his low platelet count. He denies any bleeding. He denies rash. He denies fevers and chills. He denies shortness of breath or cough. He denies chest pain. He denies abdominal pain. He denies diarrhea. He recently completed an antibiotic. Focused Exam Lactate Level Objective Exam Vital Signs Vital Signs Date Time Temp Pulse Resp B/P (MAP) Pulse Ox O2 Delivery O2 Flow Rate FiO2 12/24/21 08:50 36.4 66 20 139/79 (99) 96 High Flow N/C 4.00 Capillary Refill : Less Than 3 Seconds Results/Procedures Lab Laboratory Tests 12/24/21 04:41 Patient resulted labs reviewed. Imaging: Reviewed Imaging Report Assessment/Plan Assessment and Plan Assess & Plan/Chief Complaint Septic shock Lactic acidosis Acute kidney injury Neutropenic fever Pseudomonas bacteremia reviewed sensitivities DC'd Katherynsyn maintained [facility] Poor prognosis Goals of care discussion Dr. Sanchez discussed with patient and family and will take it day by day and no comfort care at this time Pancytopenia Glioblastoma Likely due to chemotherapy Dr. Sanchez following Platelet count now improving Bone marrow biopsy on hold Continue Granix Dysphagia w/aspiration Debility PT/OT HTN Insomnia Leg swelling Obesity Plan: Transfer to fourth floor Very poor prognosis 12/23/2021: Speech therapy sherry Ativan Needs comfort care hospice Needs [facility] Modified barium swallow tomorrow Critical Care Critically Ill Patient YOHANNESMICHI TREVIZO December 24, 2021 06:05
[2021-12-24] MEDS: POTASSIUM CL 10MEQ/50ML IVPB 50 ML IV SCH ×4 (06:27→10:05)
[2021-12-24 08:50] VITALS: BP 139/79
[2021-12-24] MEDS: HYDROCORTISONE 100 MG/2 ML (Solu-CORTEF) VIAL IV SCH ×2 (09:05→13:37)
[2021-12-24] MEDS: LEVOFLOXACIN 750 MG/D5W 150 ML (PRE-MIX) IV SCH (09:09)
[2021-12-24] MEDS: VALSARTAN 80 MG (DIOVAN) TAB PO SCH (09:10)
[2021-12-24] MEDS: TAMSULOSIN 0.4 MG (FLOMAX) CAP PO SCH (09:10)
[2021-12-24] MEDS: fluCOnazole (DIFLUCAN) 100 MG TAB PO SCH (09:10)
[2021-12-24] MEDS: guaiFENesin (MUCINEX) 600 MG TAB PO SCH (09:11)
[2021-12-24] MEDS: NYSTATIN ORAL SUSP 5 ML UDC PO SCH ×2 (09:11→13:36)
--- NOTE | 2021-12-24 09:51 | Physical Therapy Daily Note ---
PT Daily Note-Current Subjective Patient very solemn upon PT arrival. Reports "Thats it, they can't do anything else for me and I just want a drink. This ain't no way for me to go out." Reports no pain at the moment, but notes he is very thirsty. Patient and family report they he is being sent to the [facility], however they are unsure when. Mental Status Patient Orientation: Person Transfers SCALE: Activities may be completed with or without assistive devices. 4-Yqghyvovwh-ltsmjpy completes the activity by him/herself with no assistance from a helper. 5-Set-up or Clean-up Assistance-helper sets up or cleans up; patient completes activity. [place] assists only prior to or following the activity. 4-Supervision or Touching Assistance-helper provides verbal cues and/or touching/steadying and/or contact guard assistance as patient completes activity. Assistance may be provided throughout the activity or intermittently. 3-Partial/Moderate Assistance-helper does LESS THAN HALF the effort. [place] lifts, holds or supports trunk or limbs, but provides less than half the effort. 2-Substantial/Maximal Assistance-helper does MORE THAN HALF the effort. [place] lifts or holds trunk or limbs and provides more than half the effort. 5-Veudpypku-qccjzm does ALL the effort. Patient does none of the effort to complete the activity. Or, the assistance of 2 or more helpers is required for the patient to complete the activity. If activity was not attempted, code reason: 7-Patient Refused. 9-Not Applicable-not attempted and the patient did not perform the activity before the current illness, exacerbation or injury. 10-Not Attempted due to Environmental Limitations-(lack of equipment, weather restraints, etc.). 88-Not Attempted due to Medical Conditions or Safety Concerns. Roll Left & Right (QC): 2 Sit to Lying (QC): 2 Lying to Sitting/Side of Bed(Q: 2 Sit to Stand (QC): 2 Weight Bearing Right Lower Extremity: Right Full Weight Bearing Left Lower Extremity: Left Full Weight Bearing Patient is on no precautions for his left LE, unable to bear weight. Gait Training Does the Patient Walk?: No and Walking Goal IS indicated Assessment Current Status: Regressing Patient lying supine in bed upon PT arrival. Agrees to treatment, but notes "I just want to sit on the side of the bed right now." Patient requires max A for all bed mobility and sit to stand. He was unable to fully stand erect and although used the shweta-walker, was not beneficial at this time. Patient sat at the edge of the bed ~ 3 more minutes then requested to return to the bed. Patient requires total A for sit to supine and for sliding up in the bed. Patient supine in bed post treatment with all needs me, nursing notified, call light in reach and family in the room. PT Short Term Goals Short Term Goals Time Frame: Jan 07, 2022 Roll Left & Right: 3 Sit to lyin Lying to sitting on side of be: 3 Sit to stand: 3 Chair/dcd-go-ppzfn transfer: 3 Toilet transfer: 3 Walk 10 feet: 2 PT Molder Offbearer Goals Molder Offbearer Goals PT Residential Goals Time Frame: December 18, 2021 Roll Left & Right (QC): 5 Sit to Lying (QC): 5 Lying-Sitting on Side/Bed(QC): 5 Sit to Stand (QC): 4 Chair/Efy-ho-Dzxjt Xfer(QC): 4 Toilet Transfer (QC): 4 Does the Patient Walk: Yes Walk 10 feet (QC): 4 Walk 50ft with 2 Turns (QC): 3 Walk 150 ft (QC): 3 1 Step (curb) (QC): 3 4 Steps (QC): 3 PT Plan Treatment/Plan Treatment Plan: Continue Plan of Care Treatment Plan: Bed Mobility, Education, Functional Activity Isidra, Functional Strength, Gait, Safety, Therapeutic Exercise, Transfers Treatment Duration: Jan 28, 2022 Frequency: 6 times per week Estimated Hrs Per Day: .5 hour per day Patient and/or Family Agrees t: Yes Safety Risks/Education Patient Education: Transfer Techniques Teaching Recipient: Patient Teaching Methods: Demonstration Response to Teaching: Reinforcement Needed Time/GCodes Time In: 905 Time Out: 930 Total Billed Treatment Time: 25 Total Billed Treatment Visit, FA (2) ONEYDA PALOMINO PT December 24, 2021 09:51
[2021-12-24] MEDS: TBO-FILGRASTIM 480 MCG/0.8 ML (GRANIX) SQ SCH (10:05)
--- NOTE | 2021-12-24 10:06 | ST Mod Barium Swallow ---
Speech Evaluation-General Medical Diagnosis Panocytopenia Onset Date: December 09, 2021 Therapy Diagnosis Therapy Diagnosis: Mild Oropharyngeal Dysphagia Precautions Precautions: Fall, Aspiration Precautions/Isolations: Aspiration, Fall Prevention, Standard Precautions Referral Referring Physician: Dr. Salter Reason for Referral: Evaluation/Treatment Medical History Current History The patient is a 66 year-old male, who was admitted on 12/09/21 for pancytopenia secondary to Chemotherapy for Glioblastoma. On 12/20/21, the patient was t ransferred to ICU for a sudden onset of hypotension. The patient returned to the floor on 12/22/21. Reviewed History: Yes Social History Current Living Status: Spouse Speech Mod Barium Swallow Prior Level of Function The patient received an initial evaluation from speech pathology on 12/13/21. At the time, the clinician recommended a regular consistency diet with nectar-thick liquids and completion of a modified barium swallow. Following transfer to the ICU, the patient was re-evaluated by speech pathology and placed NPO on 12/21/21 due to his high aspiration risk. A modified barium swallow continued to be recommended and will be completed on this date (12/24/21). Please see the patient's chart for additional speech pathology documentation and history of skilled treatment. Oral Motor Skills Dentition Natural Dentures: Full Lingual Protrusion: Normal Lingual ROM: Normal Lingual Strength: Normal Velum: Normal Volitional Dry Swallow: Yes Voluntary Cough: Yes Can Clear Throat Volitionally: Yes Textures-Lateral View Lateral View Food Presentation: Thin Liquid via Spoon, Thin Liquid via Cup, Thin Liquid via Straw, Pureed Solids, Regular Solids Oral Phase Labial Closure: No Impairment (WFL) Bolus Formation Pooling L/R: No Impairment (WFL) Bolus Formation Placement: No Impairment (WFL) Mastication Rotary Chew: Mild Impairment A/P Lingual Propulsion: Mild Impairment Lingual Movement: No Impairment (WFL) Oral Phase Residue: Mild Impairment The patient demonstrated mild oral phase dysphagia characterized by reduced lingual range of motion characterized by consistent premature spillage of thin liquid bolus material to the laryngeal surface of the epiglottis and, inconsistently, the pyriform sinuses prior to pharyngeal swallow trigger. Mildly prolonged mastication was present with the solid consistency which appeared secondary to the overall dryness of the bolus and not strength of the rotary mastication action. A thin liquid wash was utilized to transfer the dry, solid masticated material posterior in the oral cavity. The patient was able to appropriately draw material from a teaspoon, cup edge, and straw without difficulty or assistance. Pharyngeal Phase Swallow Response: Mild Impairment Base of Tongue: Mild Impairment Epiglottic Movement: No Impairment (WFL) Laryngeal Elevation: Mild Impairment Vallecular Residue: Mild Pharyngeal Wall Residue: No Impairment (WFL) Piriform Sinus Residue: Mild Laryngeal Penetration: Mild Aspiration Observations: None The patient demonstrated mild pharyngeal dysphagia throughout the study. Onset of the pharyngeal swallow was mildly delayed and occurred as the head of the lonnie us reached the laryngeal surface of the epiglottis or, inconsistently, the level of the pyriform sinuses. The delayed pharyngeal swallow resulted in trace, transient (flash) laryngeal penetration during the swallow with thin liquids. NO ASPIRATION OCCURRED WITH ANY CONSISTENCY TESTED (thin liquid, puree, or solid). The patient's baseline, persistent cough was not present during or following the assessment. Mildly decreased laryngeal elevation and hyo-laryngeal excursion were present with complete epiglottic inversion appreciated. Mildly decreased base of tongue retraction and pharyngeal contraction were present which resulted in mild vallecular and pyriform sinus residue. The presence of osteophytes were visualized at cervical vertebrae three which correlated to the hypopharyngeal region. The presence did not obstruct bolus flow in the region throughout the study, however, the clinician does suspect the presence could result in difficulty (possible laryngeal penetration, aspiration) with a large bolus. Performed-A/P View Not Applicable/Performed Summary/Impressions The patient demonstrated mild oropharyngeal dysphagia characterized by reduced lingual coordination, a delayed onset of the pharyngeal swallow, decreased laryngeal elevation, reduced hyo-laryngeal excursion, decreased base of tongue retraction, and reduced pharyngeal contraction. The listed impairments resulted in intermittent, inconsistent trace, transient (flash) laryngeal penetration of thin liquids during the swallow. NO ASPIRATION WAS APPRECIATED WITH ANY CONSISTENCY TESTED (thin liquid, puree, and solid). Recommendations: - Regular consistency diet with thin liquids, as tolerated. - Fully upright and alert for P.O. intake. - SMALL, SINGLE bites and sips, only. - Alternate solids and liquids, as needed. - Crush medication and place in puree for administration. - Remain upright for a minimum of 30 minutes following P.O. intake. - Monitor for s/s of suspected aspiration with P.O. intake. If demonstrated, contact speech pathology. The results, recommendations, and swallowing strategies were discussed with the patient, the patient's family, and the RN. The importance of following the swallowing strategies were discussed thoroughly as the patient remains at a high risk for aspiration secondary to his recent "choking" events. At this time, the clinician cannot correlate the patient's persistent cough with a visualized aspiration event per fluoroscopy. Speech Short Term Goals Short Term Goals Short Term Goals 1. The patient and staff will follow safe swallowing protocols with 90% accuracy, independently. Speech Automotive Paint Technician Goals [facility] Goals 1. The patient will demonstrate tolerance of the least restricted diet consistency without s/s of suspected aspiration. Speech-Plan Treatment Plan Speech Therapy Treatment Plan: Continue Plan of Care Treatment Duration: Dec 29, 2021 Frequency: 3 times per week Estimated Hrs Per Day: .25 hour per day Rehab Potential: Guarded Pt/Family Agrees to Plan: Yes Safety Risks/Education Teaching Recipient: Patient, Family Teaching Methods: Discussion, Audiovisual Response to Teaching: Verbalize Understanding, Reinforcement Needed Education Topics Provided: Recommendations, Swallowing Strategies, Results Time Speech Therapy Time In: 10:15 Speech Therapy Time Out: 11:00 Total Billed Time: 45 Billed Treatment Time 1, MOD, DYST No SILVERIO GALLAGHER December 24, 2021 10:06
[2021-12-24] MEDS ORDERED: TMSL.4C PO (12:06)
[2021-12-24] MEDS ORDERED: VALS80TA31 PO (12:06)
[2021-12-24] MEDS ORDERED: BENZ200C51 PO (12:06)
[2021-12-24] MEDS ORDERED: NYST1000 PO (12:06)
[2021-12-24] MEDS ORDERED: CITA40TA13 PO (12:06)
[2021-12-24] MEDS ORDERED: ACET325T49 PO (12:06)
[2021-12-24] MEDS ORDERED: CARV6.252 PO (12:06)
[2021-12-24] MEDS ORDERED: LEVO750T39 PO (12:06)
[2021-12-24] MEDS ORDERED: MULT-1030 PO (12:06)
[2021-12-24] MEDS ORDERED: ONDA8TAB13 PO (12:06)
[2021-12-24] MEDS ORDERED: OLAN2.5T27 PO (12:06)
[2021-12-24] MEDS ORDERED: GUAI600T43 PO (12:06)
[2021-12-24] MEDS ORDERED: LEVE10006 PO (12:06)
[2021-12-24] MEDS ORDERED: LORA2ORA PO (12:06)
[2021-12-24] MEDS ORDERED: OXC5T PO (12:06)
[2021-12-24] MEDS ORDERED: POLY17PO54 PO (12:06)
[2021-12-24] MEDS ORDERED: IPRA3AMP31 INH (12:06)
[2021-12-24] MEDS ORDERED: CYAN-41 PO (12:06)
[2021-12-24] MEDS ORDERED: FLUC100T10 PO (12:06)
--- NOTE | 2021-12-24 12:09 | Discharge Inst-Skilled Nursing ---
Discharge Inst-Skilled NF Reconcile Patient Problems Problems Reviewed?: Yes Chief Complaint Valentin Talbert is a 66 year old male with PMH glioblastoma s/p surgery, radiation, and chemotherapy, who presented with pancytopenia. He has not been feeling well for the past week. He has been having weakness which has been more pronounced over that time. His chemotherapy was stopped a couple weeks ago due to his low platelet count. He denies any bleeding. He denies rash. He denies fevers and chills. He denies shortness of breath or cough. He denies chest pain. He denies abdominal pain. He denies diarrhea. He recently completed an antibiotic. Patient Instructions Patient Problems: Glioblastoma Goal: Return to independence Consult/Follow Up/Orders Follow Up Appt.: PCP 1 week Skilled NF Admit to: Certification (SNF) I certify that SNF services are required to be given on an inpatient basis because of the above named patient's need for nursing home care on a c ontinuing basis for the conditions(s) for which he/she was receiving inpatient hospital services prior to his/her transfer to the SNF. Halfway Facility Order: Nursing Services, Senior Marketing Analyst-Evaluate & Treat, Physical Therapy-Evaluate & Treat, Speech Language-Evaluate & Treat Oxygen Delivery Method: Nasal Cannula Discharge Diet: No Restrictions Daily Activity as Tolerated: Yes Resuscitation Status: Do Not Resuscitate Type of Care: Pallative Care New & Resume Previous Orders New Medications: Levofloxacin (Levofloxacin) 750 Mg Tablet 750 MG PO DAILY, #7 TAB Lorazepam (Lorazepam Intensol) 2 Mg/Ml Oral.conc 1 MG PO Q2H PRN for AGITATION, #30 ML Oxycodone Hcl (Oxyir Tablet) 5 Mg Tab 5 MG PO Q4H, #30 TAB Acetaminophen (Acetaminophen) 325 Mg Tablet 650 MG PO Q4H PRN for TEMPERATURE, #30 TAB Fluconazole (Fluconazole) 100 Mg Tablet 100 MG PO DAILY, #7 TAB Guaifenesin (Mucinex) 600 Mg Tab.er.12h 600 MG PO BID, #60 TAB Ipratropium/Albuterol Sulfate (Iprat-Albut 0.5-3(2.5) mg/3 ml) 0.5 Mg-3 Mg (2.5 Mg Base)/3 Ml Ampul.neb 3 ML INH RTQ4HR PRN for WHEEZING, #30 EA Nystatin (Nystatin) 100,000 Unit/Ml Oral.susp 5 ML PO QID, #120 ML Polyethylene Glycol 3350 (Polyethylene Glycol 3350) 17 Gram Powd.pack 17 GM PO BID PRN for CONSTIPATION-1ST LINE, #15 EACH Changed Medications: Citalopram Hydrobromide (Citalopram HBr) 40 Mg Tablet 20 MG PO DAILY, #30 TAB (Changed from: Removed Instructions) Continued Medications: Benzonatate (Benzonatate) 200 Mg Capsule 200 MG PO Q8H PRN for COUGH, #30 CAP (This prescription has been renewed) Carvedilol (Carvedilol) 6.25 Mg Tablet 6.25 MG PO BID, #60 TAB (This prescription has been renewed) Cyanocobalamin (Vitamin B-12) (Vitamin B-12) 1,000 Mcg Tablet 1000 MCG PO DAILY, #30 TAB (This prescription has been renewed) Levetiracetam (Levetiracetam) 1,000 Mg Tablet 1000 MG PO BID, #60 TAB (This prescription has been renewed) Multivits,Ca,Min/Iron/FA/Lycop (Centrum Men's Tablet) 8 Mg Iron-200 Mcg-600 Mcg Tablet 1 EACH PO DAILY, #30 TAB (This prescription has been renewed) Olanzapine (Olanzapine) 2.5 Mg Tablet 2.5 MG PO HS, #30 TAB (This prescription has been renewed) Ondansetron (Ondansetron Odt) 8 Mg Tab.rapdis 8 MG PO Q8H PRN for NAUSEA/VOMITING-1ST LINE, #15 TAB (This prescription has been renewed) Tamsulosin HCl (Flomax) 0.4 Mg Cap 0.4 MG PO DAILY, #30 CAP (This prescription has been renewed) Valsartan (Valsartan) 80 Mg Tablet 80 MG PO DAILY, #30 TAB (This prescription has been renewed) Discontinued Medications: Amlodipine Besylate (Amlodipine Besylate) 10 Mg Tablet 10 MG PO DAILY, TAB Clonidine HCl (Clonidine HCl) 0.1 Mg Tablet 0.1 MG PO Q6H PRN for SBP >150/80, TAB Dexamethasone (Dexamethasone) 4 Mg Tablet 4 MG PO DAILY, TAB TAKE 4MG DAILY X 7 DAYS (STARTING 12-06-2021) THEN DECREASE TO 2MG DAILY X 7 DAYS Furosemide (Furosemide) 20 Mg Tablet 40 MG PO DAILY, TAB TAKES 2 (20MG) TABS [place]-3/Dha/Epa/Fish Oil (Fish Oil 1,000 mg Softgel) 1,000 Mg (120 Mg-180 Mg) Capsule 1000 MG PO DAILY, CAP Potassium Chloride (Potassium Chloride) 10 Meq Capsule.er 10 MEQ PO BID, TAB Sulfamethoxazole/Trimethoprim (Bactrim Ds Tablet) 1 Each Tablet 1 EA PO MO,WE,FR, TAB Jeanette Salter December 24, 2021 12:07 JEANETTE SALTER DO December 24, 2021 12:09
--- NOTE | 2021-12-24 12:10 | Discharge Summary ---
Discharge Summary Hospital Course Was the Problem List Reviewed?: Yes Problems/Dx: (1) Septic shock Status: Acute (2) Gram-negative bacteremia Status: Acute (3) COURTNEY (acute kidney injury) Status: Acute (4) Lactic acidosis Status: Acute (5) Neutropenic fever Status: Acute (6) Pancytopenia Status: Acute (7) Glioblastoma Status: Acute (8) Leg swelling Status: Acute (9) Dysphagia Status: Acute (10) Cough Status: Acute (11) Debility Status: Acute (12) Poor prognosis Status: Acute (13) Goals of care, counseling/discussion Status: Acute Hospital Course Date of Admission: December 09, 2021 at 12:59 Admission Diagnosis : Family Physician/Provider: No,Local Physician Date of Discharge: 12/24/21 Discharge Diagnosis: Glioblastoma, septic shock due to Pseudomonas bacteremia, dysphagia and aspiration risk Hospital Course: Pt had a very lengthy hospital course for 16 days after he was admitted for dysphasia due to glioblastoma. He had a lot of setbacks including one severe septic shock due to Pseudomonas bacteremia. He was placed on double coverage of Zosyn and Levaquin. Sensitivities reviewed, Zosyn was discontinued and pt was placed on Levaquin pill form to complete 7 days. [facility] Overall very unrealistic expectations of the family. It took a great deal of social work and conversations. He remained a DNR but he has a very very poor prognosis. Labs and Pending Lab Test: Laboratory Tests 12/23/21 18:11: Glucometer 107 12/23/21 23:36: Glucometer 102 12/24/21 04:41: White Blood Count 7.1, Red Blood Count 2.47L, Hemoglobin 8.1L, Hematocrit 24L, Mean Corpuscular Volume 97, Mean Corpuscular Hemoglobin 33, Mean Corpuscular Hemoglobin Concent 34, Red Cell Distribution Width 16.3H, Platelet Count 71L, Mean Platelet Volume 11.6, Immature Granulocyte % (Auto) 13, Neutrophils (%) (Auto) 76H, Lymphocytes (%) (Auto) 5L, Monocytes (%) (Auto) 5, Eosinophils (%) (Auto) 0, Basophils (%) (Auto) 1, Neutrophils # (Auto) 5.4, Lymphocytes # (Auto) 0.4L, Monocytes # (Auto) 0.3, Eosinophils # (Auto) 0.0, Basophils # (Auto) 0.1, Immature Granulocyte # (Auto) 0.9H, Percent Immature Platelet Fraction 7.6, Sodium Level 148H, Potassium Level 3.0L, Chloride Level 114H, Carbon Dioxide Level 20L, Anion Gap 14, Blood Urea Nitrogen 40H, Creatinine 1.09, Estimat Glomerular Filtration Rate 74, BUN/Creatinine Ratio 37, Glucose Level 107H, Calcium Level 8.4L, Corrected Calcium 9.8, Total Bilirubin 1.0, Aspartate Amino Transf (AST/SGOT) 17, Alanine Aminotransferase (ALT/SGPT) 25, Alkaline Phosphatase 60, Total Protein 4.9L, Albumin 2.3L 12/24/21 11:45: Glucometer 101 Microbiology 12/21/21 Blood Culture - Preliminary, Resulted No growth 12/20/21 Urine Culture - Final, Complete NO GROWTH 12/20/21 MRSA Screen - Final, Complete MRSA not isolated 12/19/21 C. difficile GDH Antigen & Toxins - Final, Complete Home Meds Active Oxyir Tablet (Oxycodone HCl) 5 Mg Tab 5 Mg PO Q4H Lorazepam Intensol (Lorazepam) 2 Mg/Ml Oral.conc 1 Mg PO Q2H PRN Levofloxacin 750 Mg Tablet 750 Mg PO DAILY Polyethylene Glycol 3350 17 Gram Powd.pack 17 Gm PO BID PRN Mucinex (Guaifenesin) 600 Mg Tab.er.12h 600 Mg PO BID Acetaminophen 325 Mg Tablet 650 Mg PO Q4H PRN Iprat-Albut 0.5-3(2.5) mg/3 ml (Ipratropium/Albuterol Sulfate) 0.5 Mg-3 Mg (2.5 Mg Base)/3 Ml Ampul.neb 3 Ml INH RTQ4HR PRN Nystatin 100,000 Unit/Ml Oral.susp 5 Ml PO QID Fluconazole 100 Mg Tablet 100 Mg PO DAILY Citalopram HBr (Citalopram Hydrobromide) 40 Mg Tablet 20 Mg PO DAILY Vitamin B-12 (Cyanocobalamin (Vitamin B-12)) 1,000 Mcg Tablet 1,000 Mcg PO DAILY Centrum Men's Tablet (Multivits,Ca,Min/Iron/FA/Lycop) 8 Mg Iron-200 Mcg-600 Mcg Tablet 1 Each PO DAILY Carvedilol 6.25 Mg Tablet 6.25 Mg PO BID Ondansetron Odt (Ondansetron) 8 Mg Tab.rapdis 8 Mg PO Q8H PRN Flomax (Tamsulosin HCl) 0.4 Mg Cap 0.4 Mg PO DAILY Valsartan 80 Mg Tablet 80 Mg PO DAILY Levetiracetam 1,000 Mg Tablet 1,000 Mg PO BID Olanzapine 2.5 Mg Tablet 2.5 Mg PO HS Benzonatate 200 Mg Capsule 200 Mg PO Q8H PRN Reported Fish Oil 1,000 mg Softgel ([place]-3/Dha/Epa/Fish Oil) 1,000 Mg (120 Mg-180 Mg) Capsule 1,000 Mg PO DAILY Clonidine HCl 0.1 Mg Tablet 0.1 Mg PO Q6H PRN Amlodipine Besylate 10 Mg Tablet 10 Mg PO DAILY Furosemide 20 Mg Tablet 40 Mg PO DAILY TAKES 2 (20MG) TABS Bactrim Ds Tablet (Sulfamethoxazole/Trimethoprim) 1 Each Tablet 1 Ea PO MO,WE,FR Dexamethasone 4 Mg Tablet 4 Mg PO DAILY TAKE 4MG DAILY X 7 DAYS (STARTING 12-06-2021) THEN DECREASE TO 2MG DAILY X 7 DAYS Potassium Chloride 10 Meq Capsule.er 10 Meq PO BID Assessment/Pt Instructions assisted rounds Discharge Planning: <30 minutes discharge planning Discharge Instructions Discharge Diet: No Restrictions Discharge Physical Examination Vital Signs Vital Signs Date Time Temp Pulse Resp B/P (MAP) Pulse Ox O2 Delivery O2 Flow Rate FiO2 12/24/21 08:50 36.4 66 20 139/79 (99) 96 High Flow N/C 4.00 General Appearance: No Apparent Distress, WD/WN, Chronically ill, Obese Respiratory: Lungs Clear, Normal Breath Sounds Neurologic/Psychiatric: Alert, Oriented x3 Allergies: Coded Allergies: No Known Drug Allergies (Unverified , 12/09/21) Discharge Summary Date of Admission December 09, 2021 at 12:59 Date of Discharge Discharge Date: December 24, 2021 Admission Diagnosis Pancytopenia Comfort Measures/ End of Life Care: Pallative Care Discharge Diagnosis Septic shock Lactic acidosis Acute kidney injury Neutropenic fever Pseudomonas bacteremia reviewed sensitivities DC'shine Rosenbaum maintained Levaquin Poor prognosis Goals of care discussion Dr. Sanchez discussed with patient and family and will take it day by day and no comfort care at this time Pancytopenia Glioblastoma Likely due to chemotherapy Dr. Sanchez following Platelet count now improving Bone marrow biopsy on hold Continue Granix Dysphagia w/aspiration Debility PT/OT HTN Insomnia Leg swelling Obesity Plan: Transfer to fourth floor Very poor prognosis 12/23/2021: Speech therapy eval Ativan Needs comfort care hospice Needs fpc Modified barium swallow tomorrow (1) Septic shock Status: Acute (2) Gram-negative bacteremia Status: Acute (3) COURTNEY (acute kidney injury) Status: Acute (4) Lactic acidosis Status: Acute (5) Neutropenic fever Status: Acute (6) Pancytopenia Status: Acute (7) Glioblastoma Status: Acute (8) Leg swelling Status: Acute (9) Dysphagia Status: Acute (10) Cough Status: Acute (11) Debility Status: Acute (12) Poor prognosis Status: Acute (13) Goals of care, counseling/discussion Status: Acute MICHI SHEFFIELD DO December 24, 2021 12:10
[2021-12-24 12:33] VITALS: BP 163/94
--- NOTE | 2021-12-24 13:00 | Diagnostic Imaging Report ---
INDICATION: Dysphagia. TECHNIQUE: Procedure was performed in conjunction with Speech Pathology. Video fluoroscopy was performed during the swallowing of barium at multiple consistencies. A total of 1.5 minutes of fluoroscopic time was utilized. FINDINGS: Patient ingested thin barium as well as pudding and cracker consistency. The oral phase is unremarkable. There were two episodes of flash penetration during the swallowing of thin barium. No aspiration was observed. No significant vallecular or piriform sinus residue was noted. There is normal epiglottic tilt and laryngeal elevation. IMPRESSION: Essentially unremarkable modified barium swallow apart from two episodes of flash penetration. No aspiration was observed. Dictated by: Dictated on workstation # [id number]
== END 2021-12-24 17:14 | DRG 808 ==
LOC: EDUNIT# 11:31 → ER 11:32 → 4TH 12:02 → OBSVTOIN 12:59 → ICU 12-20 03:28 → 4TH 12-22 12:10
PROVIDERS: ADMIT Internal Medicine; ATTEND Internal Medicine
PROC: 5A09357 Assistance with Respiratory Ventilation, Less than 24 Consecutive Hours, Continuous Positive Airway Pressure (ICD-10-PCS; 2021-12-13)
PROC: 5A0945A Assistance with Respiratory Ventilation, 24-96 Consecutive Hours, High Flow/Velocity Cannula (ICD-10-PCS; principal; 2021-12-20)
DX: D61.810 Antineoplastic chemotherapy induced pancytopenia (principal); R65.21 Severe sepsis with septic shock; A41.52 Sepsis due to Pseudomonas; C71.9 Malignant neoplasm of brain, unspecified; G81.94 Hemiplegia, unspecified affecting left nondominant side; Z68.41 Body mass index [BMI] 40.0-44.9, adult; E87.2 Acidosis; N17.9 Acute kidney failure, unspecified; Z66 Do not resuscitate; Z51.5 Encounter for palliative care; I10 Essential (primary) hypertension; Z96.653 Presence of artificial knee joint, bilateral; Z96.612 Presence of left artificial shoulder joint; G47.00 Insomnia, unspecified; M79.89 Other specified soft tissue disorders; E66.9 Obesity, unspecified; G47.33 Obstructive sleep apnea (adult) (pediatric); N40.0 Benign prostatic hyperplasia without lower urinary tract symptoms; M19.90 Unspecified osteoarthritis, unspecified site; F41.9 Anxiety disorder, unspecified; Z89.021 Acquired absence of right finger(s); Z92.21 Personal history of antineoplastic chemotherapy; Z92.3 Personal history of irradiation; R05.9 Cough, unspecified; R53.81 Other malaise; D70.9 Neutropenia, unspecified; R50.81 Fever presenting with conditions classified elsewhere
CPT/HCPCS: 36415; 70450; 71045; 74018; 74230; 80048; 80053; 81000; 82805; 82947; 83010; 83605; 83615; 83735; 84100; 84145; 85007; 85025; 85027; 85045; 85049; 85055; 85384; 85610; 85730; 87040; 87070; 87077; 87081; 87088; 87186; 87205; 87324; 87449; 94640; 94660; 94760; 99284